=== PATIENT | male | born 1945 | race Caucasian/White ===

== ENCOUNTER 2016-04-26 05:25 | Inpatient (IN) | payer MEDICARE, BC ==
[2016-04-23 10:01] LABS: BASOPHILS 0.2 % (0.0-2.0); EOSINOPHILS 1.5 % (0-7); HEMATOCRIT 43.5 % (42.0-54.0); HEMOGLOBIN 14.8 g/dL (13.5-17.5); IMMATURE GRANULOCYTES 0.9 % (0-5); LYMPHOCYTES 24.4 % (15-50); MCV 96.9 fL (80.0-100.0); MEAN PLATELET VOLUME 9.4 fL (7.4-10.4); MONOCYTES 11.8 % (2-11); NEUTROPHILS 61.2 % (40-80); RBC 4.49 10x6/uL (4.20-6.10); RDW 13.6 % (11.5-14.5); WBC 4.7 10x3/uL (4.8-10.8)
[2016-04-23 10:16] LABS: PLATELET COUNT 168 10x3/uL (130-400)
[2016-04-23 10:40] LABS: APTT 30.8 SECONDS (22.8-39.4); INR 1.69 (0.85-1.17); PROTIME 19.8 SECONDS (11.6-15.0)
[~2016-04-26] VITALS: Ht 182.9 cm; Wt 94.1 kg
[2016-04-26] VITALS (13 sets, daily range): BP systolic 91–113; BP diastolic 53–67; BMI 30.1
[~2016-04-26 05:25] MED LIST: CALCIUM 250+D T1 TAB PO; CARTIA XT240 MG PO; CELLCEPT250 MG PO; COUMADIN5 MG PO; COUMADIN7.5 MG PO; HYDROCODON-ACE1 EAC7 PO; LISINOPRIL10 MG PO; MIRALAX17 GM PO; MULTIPLE VITAMI1 TA1 PO; NORCO 7.5/325 T1 TA1 PO; OMEPRAZOLE20 M1 PO
[2016-04-26 09:00] LABS: INR 1.08 (0.85-1.17); PROTIME 13.8 SECONDS (11.6-15.0)
--- NOTE | 2016-04-26 11:39 | NUR ---
1130: ATTEMPT TO REACH FAMILY EXT 2500, 2525. FAMILY IN WAITING ROOMS STATED THEY WERE NOT IN THE WAITING ROOM ANYMORE. WILL ATEMPTED TO REACH FAMILY AGAIN IN 30MIN.
--- NOTE | 2016-04-26 16:51 | NUR ---
SCOPE PATCH BEHIND RT EAR ON ADMIT
--- NOTE | 2016-04-26 17:10 | NUR ---
1710 PT RECIEVED FROM THE OR VIA BED .. ABDOMINAL DRESSING X3 CDI WITH PARVIN DRAIN COMPRESSED AND BLOODY DRAINAGE .. 45CC.. COLOSTOMY ON THE RIGHT STOMA IS PINK WITHOUT DRAINAGE IN OSTOMY BAG.. THERE IS A PIV IN THE RIGHT WRIST SALINE LOCKED AND A PIV IN THE LEFT FORWEARM WITH LR INFUSING AT 50CC ON ARRIVAL.. MCGEE [id number] PLACE WITH GREEN URINE IN TUBING AND SCANT AMT IN UROMETER,, SR ON HEART MONITOR.. RESP 16 ON1 LNC O2.. SAT IS 93%O2 INCREASED AT THIS TIME TO 2LNC.. NIBP... EASILY ROUSED TO VERBAL STIMULI THEN DOZES BACK TO SLEEP..
--- NOTE | 2016-04-26 17:54 | NUR ---
1750 FAMILY IN TO SEE PT AND INFO TAKEN FROM HER.. LATHE SCALPER OPERATOR MORPHINE SET UP IN PT INSTRUCTED ON USE..PT IS CONVERSING WITH FAMILY 1755 X RAY DONE PER ORDER..
--- NOTE | 2016-04-26 19:00 | NUR ---
REPORT RECIEVED, SHIFT ASSESSMENT COMPLETE, PT IS ALERT AND ORIENTED, ON 2L NC WITH 97% O2 SAT. LUNGS CLEAR IN B/L UPPER LOBES, DIMINISHED IN B/L LOWER LOBES, S1S2, CM-ST, PATENT LEFT FA PIV..SEE FLOW SHEET...PATENT RIGHT WRIST PIV S/L, DRSGS ABDOMINAL INCISIONS ARE CDI, PATENT PARVIN DRAIN TO LEFT ABDOMEN WITH BLOODY DRAINAGE NOTED, COLOSTOMY TO RIGHT ABDOMEN, BLOODY DRAINAGE NOTED, PATENT F/C WITH BLUE UOP, ALL PPP, VSS, CALL LIGHT IN REACH
--- NOTE | 2016-04-26 21:20 | NUR ---
NO VISITORS AT THIS TIME, PT RESTING COMFORTABLY, WILL CON'T TO MONITOR
--- NOTE | 2016-04-26 23:20 | NUR ---
REASSESSMENT COMPLETE, NO CHANGES NOTED, PT RESTING AT THIS TIME, VSS, CALL LIGHT IN REACH
[2016-04-27] VITALS (29 sets, daily range): BP systolic 80–128; BP diastolic 49–69; Ht 182.9 cm; Wt 94.1 kg
--- NOTE | 2016-04-27 00:47 | NUR ---
B/P DROPPED INTO THE 80'S, DR. MASSEY NOTIFIED, NEW ORDERS RECIEVED
--- NOTE | 2016-04-27 03:01 | NUR ---
REASSESSMENT COMPLETE, NO CHANGES NOTED, PT RESTING AT THIS TIME, WILL CON'T TO MONITOR
[2016-04-27 04:34] LABS: BASOPHILS 0 % (0.0-2.0); EOSINOPHILS 0 % (0-7); HEMATOCRIT 36.6 % (42.0-54.0); HEMOGLOBIN 12.2 g/dL (13.5-17.5); IMMATURE GRANULOCYTES 0.2 % (0-5); LYMPHOCYTES 8.3 % (15-50); MCH 32.2 pg (26.0-34.0); MCHC 33.3 g/dL (31.0-37.0); MCV 96.6 fL (80.0-100.0); MEAN PLATELET VOLUME 9.6 fL (7.4-10.4); MONOCYTES 9.4 % (2-11); NEUTROPHILS 82.1 % (40-80); PLATELET COUNT 146 10x3/uL (130-400); RBC 3.79 10x6/uL (4.20-6.10); RDW 13.4 % (11.5-14.5); WBC 8.1 10x3/uL (4.8-10.8)
[2016-04-27 04:48] LABS: ANION GAP 12.1 mmol/L (8-16); CALCIUM 8.1 mg/dL (8.5-10.1); CARBON DIOXIDE 23.8 mmol/L (21.0-32.0); CREATININE - SERUM 1.5 mg/dL (0.6-1.3); POTASSIUM - SERUM 4.9 mmol/L (3.5-5.1)
--- NOTE | 2016-04-27 05:00 | NUR ---
PT RESTING AT THIS TIME, NO NEEDS NOTED, WILL CON'T TO MONITOR
--- NOTE | 2016-04-27 07:17 | NUR ---
UPDATE CALLED TO DR. MASSEY, NEW ORDERS RECIEVED,
--- NOTE | 2016-04-27 08:03 | OP ---
PATIENT NAME: LE WOODARD JR MEDICAL RECORD: [id number] :45 LOCATION:[facility] D.[id number] ADMISSION DATE:04/26/16 SURGEON: ROCIO MASSEY MD DATE OF OPERATION: 04/26/2016 SURGEON: Rocio Massey MD PREOPERATIVE DIAGNOSES: 1. Rectal cancer. 2. Atrial fibrillation. POSTOPERATIVE DIAGNOSES: 1. Rectal cancer. 2. Atrial fibrillation. PROCEDURES PERFORMED: Laparoscopic lysis of adhesions, laparoscopic mobilization of splenic flexure, laparoscopic assisted low anterior resection, repair of left ureteral with ureteral stent placement. Diverting ileostomy. ANESTHESIA: General. COMPLICATIONS: Left ureteral injury. ESTIMATED BLOOD LOSS: 500 cc. SPECIMENS: Rectum and sigmoid colon. Case was clean contaminated. OPERATIVE COURSE: After consent was obtained, the patient was taken to the operating room and placed in supine position on the operating table. Next, general anesthesia was given via endotracheal intubation after a timeout was performed to confirm the correct patient and procedure. The abdomen was prepped and draped in typical sterile fashion. The legs were placed in stirrups. An Ioban dressing was placed. Local anesthetic was injected and right upper quadrant. A stab incision was made with 11-blade scalpel. Using a 5-mm bladeless optical trocar, the abdomen was entered under direct laparoscopic vision. Adequate pneumoperitoneum was achieved. There was a significant amount of adhesions of the omentum to the previous midline incision. The patient had previously had an exploratory laparotomy for adhesions. Prior lysis of adhesions, a second trocar was placed in the lower midline portion of the abdomen under direct laparoscopic vision as an additional 5-mm trocar was placed into abdomen and placed that was free of any abdominal adhesions. Trocars were placed in direct laparoscopic vision. Adhesiolysis was performed with the Harmonic scalpel along the midline. Once all midline abdominal adhesions were taken down, a supraumbilical 5-mm trocar was placed. The 5-mm trocar below the umbilicus was removed and GelPort was placed. Another 5-mm trocar was then placed in left lateral quadrant. At this time, laparoscopic mobilization of splenic flexure was performed using the Harmonic scalpel. Once the splenic flexure was completely mobilized, the remaining portion of the descending colon and sigmoid colon were dissected off the pelvic sidewall along the white line and cut, mobilize the colon medially using the Harmonic scalpel. Next, the colon was retracted anterior and laterally. The JERRELL was identified. It was dissected at the base with electrocautery. Once the bases of the vessels were identified, the GelPort was removed. The colon was extracorporealized. The OPERATIVE REPORT [id number] LE WOODARD JR vessels were taken with the linear cutting stapler. The mesentery was taken with the Harmonic scalpel up to the level of the colon. At this time, the sigmoid colon was transected using the linear cutting stapler. The remaining portion of the dissection continued, the avascular presacral plane was identified and dissected. The patient received previous chemotherapy and rectal radiation. The anterior and left lateral side of pelvis were significantly adherent. The patient received neoadjuvant preoperative radiation for positive enlarged nodes in the rectum. The peritoneal reflection was taken down. The bladder was identified. The Harrison balloon was identified. The peritoneal reflection was opened. The dissection continued from the peritoneal reflection around the right side of the colon posteriorly. This was done with a combination of blunt dissection and electrocautery. It was very difficult to dissect the plane along the left lower pelvis. The left ureter was identified during dissection, which was had a significant severe thermal injury without complete ligation. The ureter was marked. Remaining portion of the rectum was dissected. The contour stapler is passed. The elevators were identified. The rectum was taken approximately 2 cm above the elevators. The specimen was sent for surgical margins. The thermal injury was significant at this time. The ureter was ligated using Metzenbaum scissors. The ends were spatulated to create fresh, clean edges. A double-J stent was placed, retrograde and antegrade. The ureter was repaired over the double-J stent using a 4-0 Prolene suture. Methylene blue was injected. There was good return of urine. After approximately 10 minutes, there was no green urine noted within the pelvis. The injury occurred approximately within 4 cm of the urinary bladder. With the margins negative, it was decided to go ahead and perform a low anterior resection with EEA stapler. Rectal sizers were placed. A 29-mm EEA stapler was placed into the rectal stump. The staple line on the sigmoid colon was opened using sharp dissection. The 29-mm EEA anvil was placed using a 0 Prolene pursestring suture. The colotomy was closed. The anvil was attached to the spike and the end-to-end stapled EEA anastomosis was performed. There were 2 intact donuts that were sent for pathology. A PARVIN drain was placed into the pelvis. The Gelport port was placed back on to the abdomen. The abdominal cavity was inspected. There was no evidence of bleeding. The left upper quadrant, no evidence of bleeding along the left pelvic side wall. The cecum was identified, as well as the terminal ileum as the abdominal wall was marked. At this time, the Gelport port ____. Trocars were removed. A small incision was made in the right lower quadrant. Dissection continued to the level of the external oblique fascia with electrocautery. A cruciate incision was made. The muscles were gently split with the Melody clamp. The peritoneum was incised using electrocautery. A Shavonne was placed through the abdominal wall approximately 6 cm from the terminal ileum. The ileum was grabbed and the liver to the bowel. Next, the midline abdominal incision was closed with #1 looped PDS and skin was closed with wendy. A Radha ileostomy was created with 3-0 Vicryl suture. At the end of the case, all needle and instrument counts were correct. The patient was extubated and transferred to the PACU in stable condition. TRANSINT:[id number] Voice Confirmation ID: [id number] DOCUMENT ID: [id number] OPERATIVE REPORT [id number] LE WOODARD JR, JAMES J MD at 0803 CC: [id number] DICTATION DATE: 04/26/16 1607 RN PALLIATIVE CARE: 04/26/16 [address] [facility] [place] [id number] [place] [address]
--- NOTE | 2016-04-27 08:33 | NUR ---
Port access-20 gauge 1 inch campos needle placed in left chest wall iport. Good blood return. Flushed with saline 10 ml. Edith Bermeo RN
--- NOTE | 2016-04-27 10:45 | NUR ---
0800 AM ASSESMENT IS COMPLERTE SEE FLOW SHEET FOR FINDINGS.. PT IS AWAKE AND ALERT .. SURGICAL DRESSINGS ON ABDOMEN CDI WITH PARVIN DRAIN BLOODY DRAINAGE.. THERE IS A SMALL AMOUNT OF BROWN LIQUID IN THE COLOSTOMY BAG ON RIGHT LOWER ABDOMEN... MCGEE CATH REMAINS WITH GREEN URINE... COMMUNITY ORGANIZATION DIRECTOR MORPHINE AND D5 WITH 20KCL AT 125CC INFUSING INTO THE LEFT AC PIV.. 0815 AGUSTIN IN TO SEE PT RE INFUSAPORT IV SITE.. SITE ACCESSED BY HER.. 0815 CXR DONE.. CLEAR LIQUID DIET SERVED AND PT IS FEEDING SELF 0845 12 LEAD EKG DONE.. 0900 FAMILY IN TO SEE PT.. UPDATE GIVEN 0940 FAMILY GONE FROM BEDSIDE.. 1030PHYSICAL THERAPY IN TO ASSIST PT OOB TO THE CHAIR.. PT IS WEIGHT BEARING..
--- NOTE | 2016-04-27 14:03 | NUR ---
WOUND CARE: CHANGED OUT COLOSTOMY APPLIANCE D/T LEAKAGE. STOMA IS RED, SURROUNDING SKIN IS WNL. PT TOLERATED WELL.
--- NOTE | 2016-04-27 14:33 | NUR ---
1130 CLEAR LIQUID DIET SERVED PT REMAINSIN THE CHAIR AND PT IS FEEDING SELF.. 1145 DR HALEY IN TO SEE PT.. UPDATE GIVEN 1200 FAMILY IN TO SEE PT .. PT CONTINUES IN CHAIR.. COMMUNITY DEVELOPMENT AIDE IN TO DO ECHO.. 1220 ASSISTED BACK TO BED WITH NURSE .. PARTIAL BATH GIVEN.. CLEAN GOWN ON.. CLEAN LINENS TO BED EARLIER.. REMAINS IN THE ROOM 1230 FAMILY GONE AND ECHO DONE .. 1330 DR MASSEY IN TO SEE PT .. 1345 WOUND CARE NURSE IN UNIT AND OSTOMY BAG CHANGED .. DRESSING ON SURGICAL INCISION CHANGED AND LAP SITES X 2 ALL AREAS ARE WITHOUT REDNESS OR SWELLING AND EDGES ARE APPROXIMATED WITH SKIN CECIL.. PARVIN DRAIN DRESING CHANGED ALSO SITE IS WITHOUT REDNESS.. BLOODY DRAINAGE IN PARVIN BULB DEPRESSED..
--- NOTE | 2016-04-27 14:34 | NUR ---
Is the patient Alert and Oriented? Yes 0 * How many steps to enter\exit or inside your home? 4 0 * PCP DR. CHANDRA IN [place] 0 * Pharmacy [facility] IN [place] 0 * Preadmission Environment Home with Family 0 * ADLs Independent 0 * Equipment None 0 * List name and contact numbers for known caregivers / representatives who currently or will assist patient after discharge: SPOUSE: FERDINAND [phone] * Community resources currently utilized None 0 * Additional services required to return to the preadmission environment? No 0 * Can the patient safely return to the preadmission environment? Yes 0 * Has this patient been hospitalized within the prior 30 days at any hospital? No 0 Grand Total: 0 PATIENT STATES HE LIVES AT HOME WITH HIS , JUAN. HE IS INDEPENDENT IN ALL ADL'S. HE STATES THAT HIS WILL BE AVAILABLE TO DRIVE HIM HOME AT DISCHARGE. HIS PCP IS DR. CHANDRA IN [place]. HE GETS HIS MEDS FROM [facility] IN [place]. HE DENIES USE OF ANY EQUIPMENT AND DENIES EVER HAVING HOME HEALTH. THERE ARE 4 STEPS TO ENTER HIS HOME. PATIENT DENIES ANY DISCHARGE NEEDS AT THIS TIME.
--- NOTE | 2016-04-27 17:39 | NUR ---
1500 FAMILY IN TO SEE PT.. UPDATE GIVEN.. 1600 PT IS SLEEPING 1700 I AND O DONE.. CLEAR LIQUID DIET IS EATEN
--- NOTE | 2016-04-27 18:18 | NUR ---
1800 VISITORS ATY THE BEDSIDE..
--- NOTE | 2016-04-27 19:37 | NUR ---
REPORT RECIEVED. ASSESSMENT COMPLETE PER FLOW SHEET. VSS. PT STATES PAIN TOLERABLE 4/10 RADIATING FROM ABD. O2 VIA NC 2L O2 SAT 97% RR 16 REGULAR RUL RML KATERYNA CLEAR BILAT LOWER LOBES DEMINISHED. HEART S1S2 HR 99 NSR BP 125/76. ABD DISTENDED FIRM BS ABSENT X4 MID ABD INCISION NOTED CDI, LLQ PARVIN DRAIN PATENT COMPRESSED DRSG CDI BLOODY DRAINAGE NOTED. RLQ COLOSTOMY NOTED DRSG CDI GREEN DRAINGE NOTED. BILAT RADIAL AND PEDAL PULSES PALP +2 NO EDEMA NOTED X4 EXTREMTIES. SCD'S ON SKIN ASSESSMENT COMPLETE NO NEW FINDINGS. GIVEN ICE WATER FOR COMOFRT. DENIES NEEDS. WILL CNOTINUE TO MONITOR.
--- NOTE | 2016-04-27 21:14 | NUR ---
PT GIVEN ICE WATER PER REQUEST REPOSITIONED IN BED FOR COMOFRT. DENIES FURTHER NEEDS. LIGHTS OUT VSS WILL CONTINUE TO MONITOR.
--- NOTE | 2016-04-27 23:26 | NUR ---
PT CONFUSED TO PLACE UPON WAKING UP. REORIENTED STATES UNDERSTANDING. NO FURTHER NEW FINDINGS. VSS. WILL COTINUE TO MONITOR.
[2016-04-28] VITALS (24 sets, daily range): BP systolic 102–156; BP diastolic 49–81
--- NOTE | 2016-04-28 01:24 | NUR ---
REPOSITIONED UP IN BED. VSS. DENIES FURTHER NEEDS. WILL CONTINUE TO MONITOR.
[2016-04-28 04:54] LABS: BASOPHILS 0.1 % (0.0-2.0); IMMATURE GRANULOCYTES 0.3 % (0-5); MCH 32.2 pg (26.0-34.0); MCHC 32.4 g/dL (31.0-37.0); MEAN PLATELET VOLUME 10.1 fL (7.4-10.4); MONOCYTES 10.5 % (2-11); NEUTROPHILS 79.1 % (40-80); PLATELET COUNT 126 10x3/uL (130-400); RBC 3.42 10x6/uL (4.20-6.10); RDW 13.4 % (11.5-14.5); WBC 6.8 10x3/uL (4.8-10.8)
[2016-04-28 05:32] LABS: ANION GAP 10.3 mmol/L (8-16); CALCIUM 8.6 mg/dL (8.5-10.1); CARBON DIOXIDE 28.3 mmol/L (21.0-32.0); MAGNESIUM - SERUM 1.7 mg/dL (1.8-2.4); POTASSIUM - SERUM 4.6 mmol/L (3.5-5.1)
[2016-04-28 05:49] LABS: MCV 99.4 fL (80.0-100.0)
[2016-04-28 05:53] LABS: CREATININE - SERUM 1.1 mg/dL (0.6-1.3)
--- NOTE | 2016-04-28 07:30 | NUR ---
SHIFT ASSESSMENT COMPLETE. PT AWAKE AND CONVERSANT. SEE FLOWSHEET FOR FINDINGS. PT IS ON 2L O2, SCD'S ON. PIV TO LEFT FOREARM, PIV TO RIGHT HAND. INFUSAPORT AT LEFT CHEST IS ACCESSED, BUT NOT IN USE.
--- NOTE | 2016-04-28 09:33 | NUR ---
Nutrition follow-up: Diet remains clear liquids Labs reviewed Wt: 227# Will need nutrition support started if diet unable to advance past clear liquids. RDN following.
--- NOTE | 2016-04-28 10:30 | NUR ---
30ML OF BLOODY DRAINAGE EMPTIED FROM PARVIN DRAIN.
--- NOTE | 2016-04-28 11:30 | NUR ---
PT SITTING UP IN CHAIR AT BEDSIDE WITH LUNCH TRAY. DENIES NEEDS AT THIS TIME. CALL LIGHT IN REACH. HAS WALKED WITH PHYSICAL THERAPY PRIOR TO BEING PLACED IN CHAIR.
--- NOTE | 2016-04-28 13:16 | EC ---
PATIENT:LE WOODARD JR DATE OF SERVICE: 04/26/16 SEX: M MEDICAL RECORD: [id number] DATE OF : 45 LOCATION:[facility] AGE OF PATIENT: 70 ADMISSION DATE: 04/26/16 REFERRING PHYSICIAN: INTERPRETING PHYSICIAN: ONEL SILVER M.D. ECHOCARDIOGRAM REPORT ECHO CHARGES 4 ECHO COMPLETE CLINICAL DIAGNOSIS: HYPOTENSION HX AFIB ECHOCARDIOGRAPHIC MEASUREMENTS (adult normal given) AC root (d.<3.7cm) 4.7 LV Septum d (<1.2 cm> 1.2 Valve Excursion 2.4 LV Septum (systole) 1.7 Left Atria (s.<4.0cm> 3.7 LVPW d(<1.2cm) 1.5 RV (d.<2.3cm) 4.0 LVPW (sytole) 1.8 LV diastole(<5.6CM) 5.4 MV E-F(>70mm/sec) LV systole 3.4 LVOT Diameter 2.2 MV exc.(>10mm) 1.6 Est.ejection fraction (50-75%) Pericardial Effusion N DOPPLER: LVIT A 50.0 E 75.0 LA RVSP 20 LVOT 116 AOP1/2T Asc. Ao 138 RVOT 103 RA PA 136 AV Gradient Peak 7.60 AV Mean 3.68 AV Area 3.5 MV Gradient Peak 3.29 MV Mean 1.16 MV Area COMMENTS: Wallpaper Hanger: Trina [place] Switchboard Operator:Trina Silver TAPE# PACS DATE OF SERVICE: 04/27/2016 INDICATION: Hypotension. REFERRING PHYSICIAN: Dr. Oconnell. DESCRIPTION: Left ventricle is normal size and function. No regional wall motion abnormalities are seen. His ejection fraction is in the order of 55% to 60%. Mitral valve is structurally normal. There is no regurgitation or prolapse seen. Left atrium is normal in size. The aortic valve appears ECHOCARDIOGRAM REPORT [id number] LE WOODARD JR trileaflet. There is no stenosis or regurgitation seen. Right ventricle is mildly dilated. Tricuspid valve is normal. There is mild regurgitation seen. Right atrium is normal size. There is no pericardial effusion noted. IMPRESSION: 1. Normal left ventricular size and function, ejection fraction of 55% to 60%. 2. Mild tricuspid regurgitation. TRANSINT:[id number] Voice Confirmation ID: [id number] DOCUMENT ID: [id number] ONEL SILVER M.D. at 1316 CC: [id number] DICTATION DATE: 04/28/16816 WEB SIZER: 04/28/16 0945 ADM IN [facility] [address] [place] [address]
--- NOTE | 2016-04-28 17:00 | NUR ---
PT SITTING UP IN BED EATING REGULAR DINNER TRAY. DENIES ANY OTHER NEEDS AT THIS TIME.
--- NOTE | 2016-04-28 19:00 | NUR ---
RECEIVED PATIENT AWAKE IN BED, ASSESSMENT COMPLETE PER FLOWSHEET. PATIENT IS AO X4, DEMEANOR IS PLEASANT. EYES PERRLA @ 3MM WITH BRISK RESPONSE, SCLERA IS WHITE. ORAL/NASAL MUCOSA IS MOIST AND INTACT, PATIENT CURRENTLY ON RA WITH O2 SAT 98%. S1/S2 NOTED WITH PATIENT NSR ON TELEMETRY, RATE IS RYTHMIC AND REGULAR. BREATHING IS EVEN AND EFFORTLESS, LUNG SOUNDS ARE CLEAR BILATERAL UPPER WITH DIMINISHED LOWER. BOWEL SOUNDS HYPOACTIVE X4, ABDOMEN IS SOFT AND NON-TENDER. 3 LAPAROSCOPIC SITES COVERED BY DRESSING CDI, L UPPER ABDOMEN PARVIN DRAIN DRESSING CDI WITH BLOODY FLUIDS, ABDOMINAL INCISION MIDLINE 13 CECIL WITH WELL APPROXIMATED EDGES, R LOWER OSTOMY WITH PINK GRANULATED TISSUE. MCGEE SECURED IN PLACE WITH CLEAR GREEN TINTED URINE NOTED IN COLLECTION. UROLOGIST/PEDAL STRENGTH EQUAL AND BILATERAL, WEAKNESS NOTED IN ALL EXTREMITIES. IMPLANTED PORT L UPPER CHEST, NOT CURRENTLY ACCESSED. 20G PIV R HAND, PATENT WITH FLUIDS INFUSING. PATIENT DENIES PAIN OR OTHER NEEDS AT THIS TIME, ALL VSS AND WILL CONTINUE TO MONITOR.
--- NOTE | 2016-04-28 21:00 | NUR ---
PATIENT FAMILY AT BEDSIDE FOR VISITATION, FAMILY HAS NO QUESTIONS AT THIS TIME. PATIENT DENIES PAIN OR OTHER NEEDS AT THIS TIME, C/O BURNING DISCOMFORT FROM "ACID REFLUX" FROM LUNCH TRAY. REPOSITIONED FOR COMFORT, HS MEDS GIVEN WITHOUT DIFFICULTY. ALL VSS AND WILL CONTINUE TO MONITOR.
--- NOTE | 2016-04-28 23:00 | NUR ---
REASSESSMENT COMPLETE PER FLOWSHEET, PATIENT RESTING IN BED WITH EYES CLOSED. PATIENT AWOKE C/O "ACID REFLUX" PAIN CAUSING NAUSEA, GIVEN PRN ZOFRAN FOR NAUSEA. ABDOMINAL DRESSING CDI, NO DRAINAGE OR SWELLING NOTED. PATIENT DENIES PAIN OR OTHER NEEDS AT THIS TIME, ALL VSS AND WILL CONTINUE TO MONITOR.
[2016-04-29] VITALS (13 sets, daily range): BP systolic 74–155; BP diastolic 58–83
--- NOTE | 2016-04-29 00:49 | NUR ---
PATIENT SITTING UP ON EDGE OF BED, STATES FEELING "SICK TO MY STOMACH". NO DRAINAGE NOTED IN ANY OF THE INCISION SITES, ABDOMEN SOFT AND ROUND. PATIENT MOVED TO CHAIR WANTS "TO SIT UP FOR A WHILE", STATES NO ACID REFLUX FEELING JUST NAUSEA. PATIENT DENIES FURTHER NEEDS AT THIS TIME, ALL VSS AND WILL CONTINUE TO MONITOR.
[2016-04-29 03:25] LABS: BASOPHILS 0.1 % (0.0-2.0); HEMATOCRIT 36.7 % (42.0-54.0); IMMATURE GRANULOCYTES 0.4 % (0-5); LYMPHOCYTES 6.8 % (15-50); MCH 32.3 pg (26.0-34.0); MCHC 32.7 g/dL (31.0-37.0); MCV 98.9 fL (80.0-100.0); MEAN PLATELET VOLUME 10.3 fL (7.4-10.4); MONOCYTES 8.8 % (2-11); NEUTROPHILS 82.9 % (40-80); RBC 3.71 10x6/uL (4.20-6.10); RDW 12.9 % (11.5-14.5)
[2016-04-29 03:26] LABS: PLATELET COUNT 174 10x3/uL (130-400)
[2016-04-29 03:34] LABS: ANION GAP 12.7 mmol/L (8-16); CALCIUM 9.1 mg/dL (8.5-10.1); CARBON DIOXIDE 26.4 mmol/L (21.0-32.0); CREATININE - SERUM 1.2 mg/dL (0.6-1.3); MAGNESIUM - SERUM 1.6 mg/dL (1.8-2.4); POTASSIUM - SERUM 4.1 mmol/L (3.5-5.1)
--- NOTE | 2016-04-29 05:20 | NUR ---
PATIENT VOMITED A LARGE AMOUNT OF GREEN/YELLOW EMESIS, UNABLE TO CALCULATE APPROXIMATE VOLUME. MOVED TO CHAIR WITH COMPLETE BED BATH/ LINEN CHANGE PERFORMED. PATIENT STATES "FEELING BETTER NOW", NO FEELING OF NAUSEA. ALL VSS AND WILL CONTINUE TO MONITOR.
--- NOTE | 2016-04-29 08:30 | NUR ---
300ML OF CLEAR FAINT GREEN LIQUID EMPTIED FROM COLOSTOMY. 70 ML OF THIN, BLOODY DRAINAGE EMPTIED FROM PARVIN DRAIN. BULB COMPRESSED.
--- NOTE | 2016-04-29 13:27 | NUR ---
PATIENT RECEIVED TO FLOOR FROM ICU VIA WHEELCHAIR. TRANSFERRED TO BED. WELL TOLERATED. A/O X4. RESPIRATIONS EVEN AND UNLABORED. ORIENTED TO ROOM. SIDE RAILS UP X2. BED IN LOW POSITION. CALL LIGHT IN REACH.
--- NOTE | 2016-04-29 14:45 | NUR ---
PATIENT IN LOW SORENSEN POSITION RESTING WITH EYES CLOSED. RESPIRATIONS EVEN AND UNLABORED. WAKES EASY. SIDE RAILS UP X2. BED IN LOW POSITION. CALL LIGHT IN REACH.
--- NOTE | 2016-04-29 16:05 | NUR ---
PATIENT ALERT IN BED VISITING WITH FAMILY. IV ABX ADMINISTERED PER ORDER. SCDS ON BILATERALLY. DENIES NEEDS. BED IN LOW POSITION. CALL LIGHT IN REACH.
--- NOTE | 2016-04-29 19:15 | NUR ---
PATIENT LYING IN BED AWAKE, ASSESSMENT COMPLETED, NO ACUTE DISTRESS NOTED, DSG'S TO LAP SITES X2 AND L QUAD PARVIN DRAIN CDI, CECIL(13) TO MIDLINE INCISION INTACT, NO DRAINAGE NOTED, COLOSTOMY WAFER AND BAG INTACT, MCGEE DRAINGING CLEAR, GREEN URINE TO GRAVITY, SCOPALAMINE PATCH IN PLACE MONIQUE R EAR, SR'S UP X2, CL IN REACH, WILL MONITOR
--- NOTE | 2016-04-29 19:24 | NUR ---
PRN ZOFRAN GIVEN FOR C/O NAUSEA WITHOUT EMESIS, JACOBY WELL, WILL MONITOR, CL IN REACH
--- NOTE | 2016-04-29 20:43 | NUR ---
MEDS GIVEN PER MAR, JACOBY WELL, DENIES NEEDS AT THIS TIME, CL IN REACH
--- NOTE | 2016-04-29 22:49 | NUR ---
PRN TUMS GIVEN PER MAR FOR C/O ABD BLOATING AND PRESSURE, JACOBY WELL, FAMILY AT BEDSIDE, CL IN REACH
[2016-04-30] VITALS: BP 112/70
--- NOTE | 2016-04-30 01:52 | NUR ---
ZOFRAN GIVEN PER MAR FOR NAUSEA WITH GREEN EMESIS, SPOUSE AT BEDSIDE, CL IN REACH
[2016-04-30 04:00] VITALS: BP 112/68
[2016-04-30 05:12] LABS: BASOPHILS 0.1 % (0.0-2.0); EOSINOPHILS 1.7 % (0-7); HEMATOCRIT 35.8 % (42.0-54.0); HEMOGLOBIN 11.8 g/dL (13.5-17.5); IMMATURE GRANULOCYTES 0.4 % (0-5); LYMPHOCYTES 9.2 % (15-50); MCH 32.6 pg (26.0-34.0); MCV 98.9 fL (80.0-100.0); MEAN PLATELET VOLUME 10.4 fL (7.4-10.4); MONOCYTES 10.5 % (2-11); NEUTROPHILS 78.1 % (40-80); PLATELET COUNT 205 10x3/uL (130-400); RBC 3.62 10x6/uL (4.20-6.10); WBC 7.3 10x3/uL (4.8-10.8)
[2016-04-30 05:25] LABS: ANION GAP 11.3 mmol/L (8-16); CALCIUM 8.9 mg/dL (8.5-10.1); CARBON DIOXIDE 28.9 mmol/L (21.0-32.0); CREATININE - SERUM 1.2 mg/dL (0.6-1.3); MAGNESIUM - SERUM 1.8 mg/dL (1.8-2.4); POTASSIUM - SERUM 4.2 mmol/L (3.5-5.1)
--- NOTE | 2016-04-30 06:04 | NUR ---
MAGNESIUM GIVEN PER E. PROTOCOL FOR LEVEL OF 1.8, JACOBY WELL
--- NOTE | 2016-04-30 07:48 | NUR ---
PT RESTING QUIETLY IN BED, MCGEE PATENT TO GRAVITY, ILEOSTOMY BAG IN PLACE, PARVIN DRAIN SEROUS SANGUINOUS, MIDLINE INSISION OPEN TO AIR CECIL INTACK NO SIGNS OF INFECTION PRESENT, RESPIRATIONS EVEN AND UNLABORED, SIDE RAILS UP X2, BED LOWEST POSITION, CALL LIGHT IN REACH, AT BEDSIDE, WILL CONTINUE TO MONITOR.
[2016-04-30 08:03] VITALS: BP 126/69
--- NOTE | 2016-04-30 08:30 | NUR ---
SCHEDULED PROTONIX ADMINSITERED AT THIS TIME, WELL PRN ZOFRAN FOR NAUSEA. IV TO RIGHT HAND PATENT. EXPLAINED TO PT AND HIS SPOUSE THAT HE WOULD BE GETTING AN NG TUBE PLACED SECONDARY TO AN ILEUS SEEN ON HIS ABDOMINAL X-RAY. PT IS FAMILIAR WITH NG TUBES HE HAS HAD ONE IN THE PAST. DENIES QUESTIONS OR CONCERNS AND BOTH HE AND HIS VERBALIZED UNDERSTANDING. NO VOMITING AT PRESENT JUST C/O NAUSEA. RESPIRATIONS EVEN AND NON LABORED. CALL LIGHT IN REACH, WILL CONTINUE WITH PLAN OF CARE.
--- NOTE | 2016-04-30 10:25 | NUR ---
16FR NG TUBE PLACED TO PT'S RIGHT NARE X1 ATTEMPT. PT TOLERATED WITHOUT COMPLAINTS. PLACEMENT CHECKED BY ASCULTATION AND IMMEDIATE RETURN OF THICK, GREEN OUTPUT. NG TUBE SECURED. PT C/O OF SORE THROAT AND NAUSEA. PT IS DRY HEAVING. WILL ADMINISTER PRESCRIBED REGLAN AND PHENERGAN. AT BEDSIDE. WILL CONTINUE WITH PLAN OF CARE.
[2016-04-30 11:11] VITALS: BP 130/69
--- NOTE | 2016-04-30 12:00 | NUR ---
NUTRITION MONITORING & EVAL CHART REVIEWED. PT CURRENTLY NPO. WILL PROVIDE DIET WHEN ADVANCED, MONITOR PO INTAKE. RD FOLLOWING
--- NOTE | 2016-04-30 12:13 | NUR ---
PT COMPLAINS OF SINUS DRAINAGE SINCE NG TUBE PLACED, SOME COMPLAINTS OF DISCOMFORT FROM TUBE, NO OTHER COMPLAINTS, PARVIN DRAINING SEROUS, ILEOSTOMY IN PLACE, WILL CONTINUE TO MONITOR
--- NOTE | 2016-04-30 12:39 | CN ---
PATIENT NAME:LE WOODARD JR MEDICAL RECORD: [id number] : 45 LOCATION:[id number] ADMIT DATE: 04/26/16 ACCOUNT: [id number] CONSULTING PHYSICIAN: EMMY HALEY MD REFERRING PHYSICIAN: ROCIO MASSEY MD DATE OF CONSULTATION: 04/27/2016 Pulmonary Consultation CONSULT REQUESTING PHYSICIAN: ROCIO MASSEY MD (JJ). REASON FOR CONSULTATION: Hypotension, critical care management. HISTORY OF PRESENT ILLNESS: Mr. Woodard is a 70-year-old gentleman who underwent yesterday laparoscopic surgery as well as diverting ileostomy and repair of the left ureteral stent placement. The patient was recently diagnosed with rectal carcinoma. He got adjuvant chemotherapy and radiation therapy. He still have a rectal bleeding and from which he has diversion ileostomy was done. Now, the patient is awake and alert. He does not have any lightheadedness. No shortness of breath. His systolic blood pressure is still running at 90, but the patient is asymptomatic. REVIEW OF SYSTEMS: Mainly in the history of present illness. PAST MEDICAL HISTORY: 1. Hypertension. 2. History of atrial fibrillation status post ablation surgery. 3. History of cerebrovascular accident. 4. CA rectum. PAST SURGICAL HISTORY: 1. He had a biopsy of the rectal carcinoma. 2. He is status post ablation surgery. 3. He has an exploratory surgery for adhesion. ALLERGIES: HE IS ALLERGIC TO ASPIRIN. PRESENT MEDICATIONS: On [employer] was reviewed. PERSONAL AND SOCIAL HISTORY: The patient is . He lives with his . He is a nonsmoker, nondrinker. FAMILY HISTORY: Noncontributory. PHYSICAL EXAMINATION: GENERAL: Now, the patient is lying comfortably. He is not in acute distress. VITAL SIGNS: The blood pressure is 82-90/54, pulse is 113, respiration is 23, temperature is 98.2, and SpO2 is 96% on 2 liters nasal cannula. HEENT: Conjunctivae are pink. Sclerae nonicteric. NECK: Supple, no JVD. CHEST: Excursion is minimal on both sides. There is no wheezing, no rales. HEART: Rhythm regular, normal sound, no murmur. ABDOMEN: Soft. Tender on deep palpation. Bowel sounds are muffled. RECTAL: Deferred. EXTREMITIES: No cyanosis, no clubbing, no pedal edema. CONSULT REPORT [id number] LE WOODARD JR SKIN: Warm, normal turgor. CENTRAL NERVOUS SYSTEM: The patient is awake and alert. There are no obvious cranial nerve abnormality. The gait was not tested. CHEST RADIOGRAPH: There is a left basilar atelectasis. OTHER LABORATORY DATA: CBC: The WBC is 4.7, hemoglobin is 14.8, hematocrit is 43.5. The repeat CBC: The WBC is 8.1, hemoglobin is 12.2, hematocrit 36.6. Chemistry: Sodium 134, potassium is 4.9, BUN is 19, creatinine 1.5. IMPRESSION: 1. Hypotension post-procedure. 2. Atelectasis in the left lower lobe, possible aspiration pneumonia. 3. Anemia, most likely secondary to blood loss. 4. Cancer rectum. 5. Status post diverting ileostomy and laparoscopic adhesiolysis. 6. Status post ureteric stent placement. 7. Atrial fibrillation, status post ablation. RECOMMENDATION: 1. We will continue the incentive spirometry and Acapella. 2. DVT and stress ulcer prevention. 3. Follow up labs and chest radiograph in the morning. 4. We will continue Mefoxin possible aspiration pneumonia. Dr. Massey once again thanks for involving me in the care of Mr. Woodard. TRANSINT:[id number] Voice Confirmation ID: [id number] DOCUMENT ID: [id number] EMMY HALEY MD at 1239 CC: ROCIO MASSEY MD [id number] DICTATION DATE: 04/27/16 1226 QC CHEMIST: 04/27/16 1316 [place] [address]
--- NOTE | 2016-04-30 12:49 | NUR ---
ORDERED MUCINEX ADMINISTERED AT THIS TIME. NG TUBE CLAMPED, WILL RESUME SUCTION IN 30 MINUTES.
--- NOTE | 2016-04-30 13:15 | NUR ---
INTERMITTENT SUCTION RE-INITIATED AT THIS TIME. PT DENIES FURTHER NEEDS. CALL LIGHT IN REACH. WILL CONTINUE WITH PLAN OF CARE.
--- NOTE | 2016-04-30 13:55 | NUR ---
NG TUBE CLAMPED SO THAT PT CAN AMBULATE WITH PHYSICAL THERAPY AT THIS TIME.
--- NOTE | 2016-04-30 15:50 | NUR ---
ILEOSTOMY EMPTIED AT THIS TIME. 125ML OF PALE, GREEN LIQUID REMOVED FROM BAG. 400ML OF DARK GREEN/BROWN LIQUID IN NG TUBE CANISTER. MCGEE CATHETER CARE PROVIDED WITH CATHETER CARE WIPES. REMAINS AT BEDSIDE. DR MASSEY ASSESSING PT. CALL LIGHT IN REACH, DENIES FURTHER NEEDS. WILL CONTINUE WITH PLAN OF CARE.
[2016-04-30 15:57] VITALS: BP 112/61
--- NOTE | 2016-04-30 19:45 | NUR ---
ASSESSMENT COMPLETED, NO ACUTE DISTRESS NOTED, NG TUBE IN PLACE IN RIGHT NARE, MCGEE DRAINING TO GRAVITY, COLOSTOMY BAG AND WAFER INTACT, STOMA RED AND BEEFY, DENIES PAIN OR NEEDS, SR'S UP X2, CL IN REACH, IN ROOM, WILL MONITOR
[2016-04-30 20:00] VITALS: BP 131/71
--- NOTE | 2016-04-30 21:50 | NUR ---
MEDS GIVEN PER MAR, JACOBY WELL, DENIES FURTHER NEEDS, AT BEDSIDE, CL IN REACH
--- NOTE | 2016-04-30 23:42 | NUR ---
RESTING WITH EYES CLOSED, NO ACUTE DISTRESS NOTED, CL IN REACH
[2016-05-01 04:00] VITALS: BP 129/77
[2016-05-01 06:14] LABS: BASOPHILS 0.2 % (0.0-2.0); EOSINOPHILS 4.4 % (0-7); HEMATOCRIT 33.9 % (42.0-54.0); IMMATURE GRANULOCYTES 0.7 % (0-5); LYMPHOCYTES 10.9 % (15-50); MCH 32.2 pg (26.0-34.0); MCHC 32.4 g/dL (31.0-37.0); MCV 99.1 fL (80.0-100.0); MEAN PLATELET VOLUME 9.9 fL (7.4-10.4); MONOCYTES 10.9 % (2-11); NEUTROPHILS 72.9 % (40-80); PLATELET COUNT 187 10x3/uL (130-400); RBC 3.42 10x6/uL (4.20-6.10); WBC 5.5 10x3/uL (4.8-10.8)
[2016-05-01 06:26] LABS: ANION GAP 12.1 mmol/L (8-16); CALCIUM 8.9 mg/dL (8.5-10.1); CARBON DIOXIDE 29.9 mmol/L (21.0-32.0); CREATININE - SERUM 1.1 mg/dL (0.6-1.3); MAGNESIUM - SERUM 1.9 mg/dL (1.8-2.4)
--- NOTE | 2016-05-01 07:35 | NUR ---
RECIEVED PATIENT DURING WALKING ROUNDS. PATIENT LYING IN BED WITH EVEN RESPIRATIONS. NO SINGS OF DISTRESS NOTED. OSTOMY DRAIN 200 CLEAR GREEN LIQUID. ASSESSMENT DONE PER FOW SHEET. BED IN LOW POSITION AND CALL LIGHT WITHIN REACH. WILL CONTINUE TO MONITOR.
--- NOTE | 2016-05-01 07:45 | NUR ---
PATIENT IS AWAKE, ALERT AND ORIENTED X'S 4. RESPIRATIONS ARE EVEN AND UNLABORED. PATIENT HAS AN NGT HOOKED TO LIWS. DARK GREEN GASTRIC CONTENT IN CANNESTER. AT BEDSIDE, REQUESTED ICE CHIPS. BROUGHT PATIENT ICE CHIPS. PATIENT AND DENY FURTHER NEEDS AT THIS TIME. BED IN LOWEST POSITON, CALL LIGHT IN REACH. BED RAILS UP X'S 2, HOB 30 DEGREES.
[2016-05-01 08:16] VITALS: BP 118/67
--- NOTE | 2016-05-01 10:50 | NUR ---
NGT BACK TO LIS SUCTION AFTER GETTING MORNING MEDICATIONS; MCGEE CATHETER REMOVED; TOLERATED WELL. 500CC DARK GREEN URINE REMOVED. INSTRUCTED PT TO USE URINAL AND TO CALL AFTER VOIDING. WILL CONTINUE TO MONITOR.
[2016-05-01 12:20] VITALS: BP 119/77
[2016-05-01 12:42] LABS: PHOSPHOROUS 3.8 mg/dL (2.5-4.9)
--- NOTE | 2016-05-01 12:59 | NUR ---
NUTRITION MONITORING & EVAL LABS ORDERED, REVIEWED. TPN ORDERS WRITTEN. 20% INTRALIPIDS Q 48 HOURS. DISCUSSED WITH NURSING RE:DECREASE LACTATED RINGERS WHEN TPN STARTS. RD FOLLOWING
--- NOTE | 2016-05-01 13:16 | NUR ---
AWAITING PHARMACY TO BRING IV FLUIDS
[2016-05-01 15:49] VITALS: BP 115/76
--- NOTE | 2016-05-01 18:54 | NUR ---
MCGEE CATHETER REMOVED AT 1050; NO OUTPUT SINCE. NO OTHER CHANGES HAVE OCCURED SINCE INITAL SHIFT ASSESSMENT. WILL CONTINUE TO MONITOR.
--- NOTE | 2016-05-01 19:20 | NUR ---
RECIEVED PT LYING IN BED AWAKE, ASSESMENT COMPLETED, NG TUBE TO LIT SUCTION, COLOSTOMY BAG AND WAFER INTACT, FLUIDS INFUSING, REPORT RECIEVED THAT PT HAS NOT VOIDED SINCE MCGEE REMOVAL THIS AM, PT DENIES DISCOMFORT AT THIS TIME, DAY SHIFT NURSE CHIDI AGREED TO INFORM DR MASSEY, AT BEDSIDE, SAFETY MEASURES IN PLACE, CL IN REACH, WILL MONITOR
--- NOTE | 2016-05-01 19:43 | NUR ---
SPOKE WITH ABOUT NOT VOIDING SINCE MCGEE OUT; INSTRUCTED TO GIVE FLOMAX AND BLADDER SCAN; BLADDER SCAN SHOWED 421. INSTRUCTED TO CONTINUE TO WATCH AND RESCAN IN AN HOUR OR TWO; IF ABOVE 600 IN AND OUT CATH CAN BE DONE.
--- NOTE | 2016-05-01 19:49 | NUR ---
PRN FLOMAX GIVEN VIA NG PER ORDERS, WILL MONITOR, IN ROOM, CL IN REACH
[2016-05-01 20:00] VITALS: BP 157/73
--- NOTE | 2016-05-01 21:40 | NUR ---
PT HAS NOT VOIDED,C/O "PRESSURE" IN BLADDER, BLADDER SCAN DONE SHOWING 680CC, IN AND OUT CATH PERFORMED PER ORDERS RESULTING IN 620 CC DARK YELLOW URINE, PT JACOBY WELL, WILL CONTINUE TO MONITOR
--- NOTE | 2016-05-01 22:16 | NUR ---
MEDS PER MAR, JACOBY WELL, CL IN REACH
--- NOTE | 2016-05-01 23:32 | NUR ---
RESTING WITH EYES CLOSED, NO DISTRESS NOTED, AT BEDSIDE, FALL PRECAUTIONS IN PLACE, CL IN REACH
[2016-05-02] VITALS: BP 137/77
[2016-05-02 04:00] VITALS: BP 124/71
[2016-05-02 05:43] LABS: BASOPHILS 0.1 % (0.0-2.0); EOSINOPHILS 3.4 % (0-7); HEMATOCRIT 35.7 % (42.0-54.0); HEMOGLOBIN 11.8 g/dL (13.5-17.5); LYMPHOCYTES 9.4 % (15-50); MCH 32.4 pg (26.0-34.0); MCHC 33.1 g/dL (31.0-37.0); MCV 98.1 fL (80.0-100.0); MEAN PLATELET VOLUME 9.6 fL (7.4-10.4); NEUTROPHILS 76.1 % (40-80); PLATELET COUNT 224 10x3/uL (130-400); RBC 3.64 10x6/uL (4.20-6.10); RDW 12.9 % (11.5-14.5); WBC 6.7 10x3/uL (4.8-10.8)
[2016-05-02 06:02] LABS: ANION GAP 15.2 mmol/L (8-16); CALCIUM 9.2 mg/dL (8.5-10.1); CARBON DIOXIDE 25.9 mmol/L (21.0-32.0); CREATININE - SERUM 1.1 mg/dL (0.6-1.3); MAGNESIUM - SERUM 1.9 mg/dL (1.8-2.4); PHOSPHOROUS 3.9 mg/dL (2.5-4.9); POTASSIUM - SERUM 4.1 mmol/L (3.5-5.1)
--- NOTE | 2016-05-02 06:15 | NUR ---
PT UNABLE TO VOID, NO URINE OUTPUT SINCE IN/OUT CATH PERFORMED LAST NIGHT, BLADDER SCAN PERFORM SHOWING 303 CC, PT DENIES ANY DISCOMFORT AT THIS TIME, WILL REPORT TO NEXT SHIFT
--- NOTE | 2016-05-02 07:00 | NUR ---
REPORT RECIEVED ASSUMED CARE. PATIENT IN BED WITH IV INTACT. NO COMPLAINTS AT THIS TIME. CALL LIGHT WITHIN REACH.
[2016-05-02 08:03] VITALS: BP 123/75
--- NOTE | 2016-05-02 08:30 | NUR ---
ASSESSMENT COMPLETE, VS STABLE. DRESSING TO PARVIN CHANGED DUE TO OLD DRAINAGE. INCISION TO ABD CLEAN AND DRY. PATIENT COLOSTOMY INTACT. NGT INTACT AND TO LIWS. CALL LIGHT WITHIN REACH. FAMILY AT BEDSIDE.
--- NOTE | 2016-05-02 10:45 | NUR ---
PATIENT IN BED WITH IV INTACT. NO COMPLAINTS. FAMILY AT BEDSIDE. CALL LIGHT WITHIN REACH.
[2016-05-02 11:11] VITALS: BP 137/78
--- NOTE | 2016-05-02 13:00 | NUR ---
PATIENT IN BED WITH NO COMPLAINTS AT THIS TIME. IV INTACT. NGT TO LIWS. CALL LIGHT WITHIN REACH.
[2016-05-02 16:22] VITALS: BP 125/66
--- NOTE | 2016-05-02 18:24 | NUR ---
PATIENT IN BED WITH NO COMPLAINTS AT THIS TIME. IV INTACT. NGT LIWS, COLOSTOMY INTACT, FAMILY AT BEDSIDE. CALL LIGHT WITHIN REACH.
[2016-05-02 20:00] VITALS: BP 121/75
--- NOTE | 2016-05-02 22:04 | NUR ---
PATIENT ASSISTED TO BATHROOM. NO SIGNS OF DISTRESS NOTED. SCHEDULED MEDS GIVEN ORDERED. DENIES NEEDS AT THIS TIME. BED LOW. CALL LIGHT IN REACH.
[2016-05-03 00:30] VITALS: BP 122/68
--- NOTE | 2016-05-03 01:40 | NUR ---
EYES CLOSED RESPIRATIONS WITH EASE AND UN LABORED. SR UP X2 CALL LIGHT WITHIN REACH.
[2016-05-03 05:00] VITALS: BP 125/73
[2016-05-03 05:32] LABS: CALC OSMOLALITY 285 mosm/kg (275-300); CALCIUM 8.7 mg/dL (8.5-10.1); CARBON DIOXIDE 31.9 mmol/L (21.0-32.0); CHLORIDE - SERUM 105 mmol/L (98-107); GLUCOSE 160 mg/dL (74-106); PHOSPHOROUS 3.5 mg/dL (2.5-4.9); POTASSIUM - SERUM 4.5 mmol/L (3.5-5.1); SODIUM 142 mmol/L (136-145); UREA NITROGEN 13 mg/dL (7-18); eGFR NON AFRICAN AMERICAN 78 mL/min (90-120)
[2016-05-03 05:33] LABS: MAGNESIUM - SERUM 2.1 mg/dL (1.8-2.4)
[2016-05-03 09:12] VITALS: BP 130/76
--- NOTE | 2016-05-03 09:45 | NUR ---
PATIENT ALERT IN HIGH SORENSEN POSITION. RESPIRATIONS EVEN AND UNLABORED. FAMILY AND PRIMARY NURSE LAURENCE CANTU AT BEDSIDE. SIDE RAILS UP X2. BED IN LOW POSITION. CALL LIGHT IN REACH.
--- NOTE | 2016-05-03 11:15 | NUR ---
NUTRITION MONITORING & EVAL CHART REVIEWED. TPN RENEWED, INCREASED RATE TO 60 CC/HR. ADJUSTED ELECTROLYTES. NURSING MESSAGE TO DECREASE LACTATED RINGERS TO 40 CC/HR WHEN NEXT BAG TPN HUNG. WILL SPEAK TO NURSING RE:SAME. RD FOLLOWING
[2016-05-03 12:59] VITALS: BP 111/69
--- NOTE | 2016-05-03 19:32 | NUR ---
PT WAS ASSESSED THIS AM ON ROUNDS NO ACUTE DISTRESS NOTED NGT ADVANCED AND RESECURED TOLERATED WELL. PT OUTPUT IN NGT 650 ML DARK GREEN FLUID. PT WAS UP TO SHOWER TODAY PER THIS NURSE TOLERATED WELL DRESSING CHANGE NOTED TO PARVIN DRAIN. 17 CECIL NOTED TO ABDOMINAL INCISION NO SYMPTOMS OF INFECTION NOTED. PT WOUND EDGES WELL APPROXIMATED. AMBULATED WELL WITH PHYSICAL THERAPY. FAMILY AT SIDE
--- NOTE | 2016-05-04 02:00 | NUR ---
PT IN BED WITH NO DISTRESS. RESPIRATIONS ARE EVEN AND UNLABORED. SIDE RAILS X 2. BED LOW. CALL LIGHT IN REACH.
[2016-05-04 05:52] LABS: CALC OSMOLALITY 282 mosm/kg (275-300); CALCIUM 8.8 mg/dL (8.5-10.1); CARBON DIOXIDE 29.7 mmol/L (21.0-32.0); CHLORIDE - SERUM 104 mmol/L (98-107); GLUCOSE 136 mg/dL (74-106); MAGNESIUM - SERUM 1.9 mg/dL (1.8-2.4); PHOSPHOROUS 4.2 mg/dL (2.5-4.9); POTASSIUM - SERUM 4.2 mmol/L (3.5-5.1); SODIUM 141 mmol/L (136-145); UREA NITROGEN 12 mg/dL (7-18); eGFR NON AFRICAN AMERICAN 78 mL/min (90-120)
[2016-05-04 08:12] VITALS: BP 125/71
--- NOTE | 2016-05-04 08:26 | NUR ---
PT ASSESSMENT COMPLETE AWAKE AND ALERT ORNIETD X 3 LUNGS CLEAR BILATERALLY HAS BOWEL SOUNDS NOTED TO 2 QUADRANTS BILAT LOWER QUADS. NGT TO LIS NOTED WITH DARK GREEN FLUID TO SUCTION TUBING. PARVIN DRAIN PATENT TO SANGUANOUS DRAINAGE WITH SMALL AMOUNT OF OUTPUT. CECIL IN TACT TO ABDOMEN WOUND EDGES WELL APPROXIMATED
--- NOTE | 2016-05-04 10:15 | NUR ---
PATIENT UP AMBULATING IN HALLWAY WITH PHYSICAL THERAPY. NO SIGNS OF DITRESS NOTED.
--- NOTE | 2016-05-04 10:31 | NUR ---
NUTRITION MONITORING & EVAL LABS REVIEWED. ADDED PHOS TO AM LAB. RD FOLLOWING
[2016-05-04 11:28] VITALS: BP 114/65
--- NOTE | 2016-05-04 11:30 | NUR ---
PT AWAKE AND ALERT NO DISTRESS NOTED VOICES ALL NEEDS TO STAFF ALL ALDS PER STAFF ASSIST HAS PRODUTION TO ILLEOSTOMY POUCH WITH SOME SOLID PEICES NOTED GREEN IN COLOR NGT CLAMPED AT THIS TIME AFTER WALK FOR MED ADMINISTRATION.
[2016-05-04 12:06] VITALS: BP 114/65
--- NOTE | 2016-05-04 14:00 | NUR ---
NGT UNABLE TO FLUSH WATER THROUGH PLACEMENT CHECKED EARLIER VIA AUSCULTATION VERIFIED. HOWEVER WHEN MEDICATION GIVEN NGT WOULDNT ALLOW PASSAGE OF FLUID. NOTIFIED DR MASSEY ORDER FOR STAT KUB
--- NOTE | 2016-05-04 17:00 | NUR ---
DR MASSEY HERE UNSTOPPED NGT WITH PULSATION OF FLUID AND PRESSURE. TOLERATED WELL.
[2016-05-04 17:31] VITALS: BP 125/70
--- NOTE | 2016-05-04 19:00 | NUR ---
SITTIG UP IN BED AWAKE TALKING WITH , NGT IN PLACE AND DRAINING TO LIT, ASSISSTED WITH REPOSITIONING IN BED, JACOBY WELL, DENIES NEEDS, AT BEDSIDE, CL IN REACH
[2016-05-04 20:00] VITALS: BP 126/70
--- NOTE | 2016-05-04 21:42 | NUR ---
NO ACUTE DISTRESS NOTED PT AWAKE AND ALERT. SPOUSE AT BEDSIDE.
[2016-05-05] VITALS: BP 125/69
--- NOTE | 2016-05-05 | NUR ---
CARE ASSUMED AT THIS TIME. REPORT FROM LAURENCE LEON. PT RESTING QUIETLY WITH EYES CLOSED, RESP EVEN AND ULABORED ON ROOM AIR. NO S/S OF DISTRESS NOTED, NGT CONNECTED TO LOW INTERMITENT SUCTION, TPN INFUSING TO LT INFUSAPORT. AT BEDSIDE. BED IN LOWEST POSITION, CALL LIGHT IN REACH, ASSESSMENT PER FLOWSHEET.
--- NOTE | 2016-05-05 03:48 | NUR ---
PT REPOSITIONED IN BED, DENIES ANY NEEDS AT THIS TIME. BED IN LOWEST POSITION,CALL LIGHT IN REACH, WILL CONTINUE TO MONITOR.
[2016-05-05 04:00] VITALS: BP 108/59
[2016-05-05 05:47] LABS: BASOPHILS 0.3 % (0.0-2.0); HEMATOCRIT 34.1 % (42.0-54.0); IMMATURE GRANULOCYTES 1.6 % (0-5); LYMPHOCYTES 11.5 % (15-50); MCH 32.4 pg (26.0-34.0); MCHC 32.3 g/dL (31.0-37.0); MCV 100.3 fL (80.0-100.0); MEAN PLATELET VOLUME 9.9 fL (7.4-10.4); NEUTROPHILS 75.6 % (40-80); WBC 6.1 10x3/uL (4.8-10.8)
[2016-05-05 06:07] LABS: CALC OSMOLALITY 289 mosm/kg (275-300); CALCIUM 8.8 mg/dL (8.5-10.1); CARBON DIOXIDE 29.5 mmol/L (21.0-32.0); CHLORIDE - SERUM 106 mmol/L (98-107); GLUCOSE 140 mg/dL (74-106); PHOSPHOROUS 4.2 mg/dL (2.5-4.9); POTASSIUM - SERUM 4.2 mmol/L (3.5-5.1); SODIUM 144 mmol/L (136-145); UREA NITROGEN 15 mg/dL (7-18); eGFR NON AFRICAN AMERICAN 78 mL/min (90-120)
[2016-05-05 06:15] LABS: PLATELET COUNT 277 10x3/uL (130-400)
--- NOTE | 2016-05-05 07:00 | NUR ---
REPORT RECIEVED ASSUMED CARE. PATIENT IN BED WITH IV INTACT. NO COMPLAINTS. CALL LIGHT WITHIN REACH.
[2016-05-05 08:18] VITALS: BP 125/65
--- NOTE | 2016-05-05 10:51 | NUR ---
NUTRITION MONITORING & EVAL CHART REVIEWED. TPN ADJUSTED/RENEWED. LABS ORDERED X [address] FOLLOWING
[2016-05-05 11:41] VITALS: BP 110/64
--- NOTE | 2016-05-05 12:45 | NUR ---
OSTOMY TEACHING CONTINUES. MET WITH PT TODAY DEMONSTRATING HOW TO CHANGE APPLIANCE AND SKIN CARE. READING MATERIAL PROVIDED WELL PHONE NUMBER OF WOUND CARE NURSE. MRS. WOODARD STATED SHE WILL READ INFORMATION AND IF ANY QUESTIONS WILL LET ME KNOW. I WILL CONTINUE TO MONITOR.
[2016-05-05 15:53] VITALS: BP 95/59
--- NOTE | 2016-05-05 18:55 | NUR ---
PATIENT IN BED WITH IV INTACT. NGT LIWS. ILEOSTOMY CDI. PARVIN INTACT. NO COMPLAINTS AT THIS TIME. CALL LIGHT WITHIN REACH.
--- NOTE | 2016-05-05 19:40 | NUR ---
PT RESTING QUIETLY IN BED WATCHING TV, AAOX4. DENIES ANY NEEDS AT THIS TIME. BED IN LOWEST POSITION, CALL LIGHT IN REACH, ASSESSMENT PER FLOWSHEET.
[2016-05-05 20:00] VITALS: BP 117/63
--- NOTE | 2016-05-05 23:34 | NUR ---
PT UP TO BATHROOM WITH ASSIST. BACK TO BED. DENIES ANY NEEDS AT THIS TIME. BED IN LOWEST POSITION,CALL LIGHT IN REACH. WILL CONITINUE TO MONITOR.
[2016-05-06] VITALS: BP 106/62
--- NOTE | 2016-05-06 02:18 | NUR ---
ILLEOSTOMY LEAKING, REMOVED WAFFER AND CLEANED AREA WITH SOAP AND WATER. DRYED AND ATTACHED NEW WAFFER AND OSTOMY BAG. PT TOLERATED WELL. NEW LINENS AND GOWN AT THIS TIME ALSO.
[2016-05-06 04:00] VITALS: BP 119/72
--- NOTE | 2016-05-06 04:00 | NUR ---
PATIENT SLEEPING WITH NO DISTRESS NOTED. NG TUBE TO LIS. PARVIN DRAIN TO LEFT QUADRANT OF ABD. MIDLINE INCISION CLOSED WITH CECIL. TPN INFUSING TO LEFT PORT. SRX2. BED LOW. CALL LIGHT WITHIN REACH.
[2016-05-06 06:03] LABS: CALCIUM 9.4 mg/dL (8.5-10.1); CARBON DIOXIDE 30.3 mmol/L (21.0-32.0); MAGNESIUM - SERUM 2.5 mg/dL (1.8-2.4); PHOSPHOROUS 4.7 mg/dL (2.5-4.9); POTASSIUM - SERUM 4.3 mmol/L (3.5-5.1)
[2016-05-06 06:33] LABS: CREATININE - SERUM 1.3 mg/dL (0.6-1.3)
[2016-05-06 07:58] VITALS: BP 121/68
--- NOTE | 2016-05-06 08:00 | NUR ---
PT AWAKE AND ALERT NO ACUTE DISTRESS NOTED VOICES NEEDS NGT PATENT OT LIS PT STATES THAT HE DOSENT THINK HE HAS URINATED SINCE VOMITING YESTERDAY. BLADDER PALPATED HOWEVER NO DISTENTION NOTED MIDLINE INCISION NOTED TO HAVE CECIL IN TACT HAS PARVIN DRAIN NOTED TO LEFT UPPER QUADRANT.
--- NOTE | 2016-05-06 10:30 | NUR ---
NG CLAMPED AT THIS TIME, SO THAT PT CAN AMBULATE WITH PHYSICAL THERAPY. DENIES NEEDS AT THIS TIME. RESPIRATIONS EVEN AND NON LABORED. CALL LIGHT IN REACH. WILL CONTINUE WITH PLAN OF CARE.
--- NOTE | 2016-05-06 11:30 | NUR ---
ORDER RECIEVED TO BLADDER SCAN AND RUN 1000 ML FLUID BOLUS. SCAN SHOWS 440 ML FLUID TO BLADDER PT STATED EXTREME DISCOMFORT IN AND OUT CATH ORDERED AND PERFORMED MILD RESISTANCE NOTED WITH INSERTION OF CATHETER PER STERILE TECHNIQUE. 750 ML DARK TEA COLORED URINE RETURNED TO CATH BAG. TOLERATED WELL. PARVIN DRAIN DISCONTINUED PER ORDER TOLERATED WELL
[2016-05-06 11:39] VITALS: BP 111/64
--- NOTE | 2016-05-06 15:30 | NUR ---
DR MASSEY ROUNDS NOTIFIED OF TEA COLORED URINE WELL RESISTANCE AT INSERTION. DR MASSEY DIGITALLY STIMULATED ILLEOSTOMY SITE PT TOLERATED WITH MINIMAL PAIN. NO NEW ORDERS AT THIS TIME
[2016-05-06 15:45] VITALS: BP 116/65
--- NOTE | 2016-05-06 19:37 | NUR ---
INTRODUCED AND ASSESSED AT THIS TIME
[2016-05-06 20:00] VITALS: BP 123/68
--- NOTE | 2016-05-06 22:29 | NUR ---
ALL MEDS GIVEN AND PT HAS BEEN COOPERATIVE AND PLEASANT. ABD LOOKS GOO AND HE HAS HAD TORADOL FOR PAIN. ONCE UP TO THE BATHROOM TO VOID AND ONLY VOIDED A LITTLE. DID NOT WANT STRAIGHT CATHED AT THIS TIME. HAS SCD'S IN PLACE AND IS COMFORTALE AT THIS TIME.
[2016-05-07] VITALS: BP 117/60
[2016-05-07 04:00] VITALS: BP 104/60
[2016-05-07 05:21] LABS: ANION GAP 11.7 mmol/L (8-16); CALCIUM 8.8 mg/dL (8.5-10.1); CARBON DIOXIDE 30.7 mmol/L (21.0-32.0); CREATININE - SERUM 1.2 mg/dL (0.6-1.3); MAGNESIUM - SERUM 2.4 mg/dL (1.8-2.4); PHOSPHOROUS 4.7 mg/dL (2.5-4.9); POTASSIUM - SERUM 4.4 mmol/L (3.5-5.1)
--- NOTE | 2016-05-07 06:45 | NUR ---
PATIENT HAS BEEN IN AND OUT CATHED TWO TIMES DURING THE NIGHTAT HIS REQUEST DUE TO INABILITY TO VOID. THE FIRST AT ABOUT 2200 WAS 500 CC AND THEN THIS MORNING AT ABOUT 0400 WE ONLY OBTAINED 200 CC.
--- NOTE | 2016-05-07 07:32 | NUR ---
Patient awake and alert x3, he has an NG tube that is to low intermittant suction, port to left infusing TPN at 60, periph IV to left forearm ns at 30. Telemetry in place, patient has dressing to lower mid abdomen where there are sutures, minimal drainage noted to bottom of dressing. ileostomy intact and draining mostly green in color liquid, patient says he is not able to void urine on his own since Tuesday, he has been getting in and out caths, last one at 0400 with 200 ml urine out. just emptied ileostomy with 200 ml output. Patient does not have on scd's offered to place them on him, he said he would do it later.
[2016-05-07 08:13] VITALS: BP 106/61
[2016-05-07 12:43] VITALS: BP 108/65
--- NOTE | 2016-05-07 14:19 | NUR ---
RT NOTE- PT PLACED ON ROOM AIR AT 1100.PT SP02 96% ON ROOM AIR. WILL LEAVE ON ROOM AIR AND CONT TO MONITOR.
--- NOTE | 2016-05-07 14:26 | NUR ---
CM REASSESSMENT NOTE: PATIENT AND CHOSE [facility] AND SIGNED THE [facility]RO - REFERRAL WILL BE SENT.
[2016-05-07 15:50] VITALS: BP 111/60
--- NOTE | 2016-05-07 18:30 | NUR ---
SCANNED BLADDER AND DID NOTE 390 ML, PATIENT UNABLE TO VOID URINE ALL DAY, DID NOT WANT IN AND OUT CATH. HE ALSO C/O FEELING LIKE HE MAY VOMIT, LIKE HE HAS ACID REFLUX AND FEELS FULL. HE WANTS ME TO CALL THE DR AND SEE IF WE CAN RESTART THE SUCTION AND INSERT MCGEE CATH.
--- NOTE | 2016-05-07 18:39 | NUR ---
PAGED COMPOSITION MIXER
--- NOTE | 2016-05-07 18:44 | NUR ---
SPOKE TO DR. MASSEY, SEE ORDER.
--- NOTE | 2016-05-07 18:44 | NUR ---
NEW ORDER RECEIVED FOR RESTART SUCTION AND INSERT MCGEE.
[2016-05-07 21:03] VITALS: BP 104/59
--- NOTE | 2016-05-07 23:14 | NUR ---
PT WAS ASSESSED AT THE BEGINNING OF THE SHIFT. HE IS ALERT AND ORIENTED, ABLE TO VERBALIZE NEEDS. HIS ABD INCISION IS CLEAN DRY AND INTACT. HE NOW HAS A MCGEE CATH AND IT IS DRAINING WELL. NG TUBE IS TO LIS AND HAS GREEN BILE IN THE CANISTER. NO NAUSEA AT THIS TIME. TELEMETY IS IN PLACE AND ALL HS MEDS HAVE BEEN TAKEN. THE NG WAS CUT OFF FOR 30 MIN. TO LET THE MEDS WORK BEFORE PULLING THEM OFFWITH THE SUCTION. HIS NOSE REDONE WITH THE NG TUBE DRESSING DUE TO IT GETTING LOOSE. THE BED IS LOW, RAILS UP X'S 2 WITH THE CALL LIGHT AT HAND.
[2016-05-08 04:00] VITALS: BP 106/62
[2016-05-08 06:00] LABS: ANION GAP 11.5 mmol/L (8-16); CALCIUM 9.2 mg/dL (8.5-10.1); CARBON DIOXIDE 31.8 mmol/L (21.0-32.0); CREATININE - SERUM 1.3 mg/dL (0.6-1.3); MAGNESIUM - SERUM 2.7 mg/dL (1.8-2.4); PHOSPHOROUS 4.3 mg/dL (2.5-4.9); POTASSIUM - SERUM 4.3 mmol/L (3.5-5.1)
--- NOTE | 2016-05-08 07:15 | NUR ---
PT REC'D FROM DARON DEAN. RESTING IN BED WITH EYES CLOSED. EASILY AROSED. AAOX4. RATING CURRENT PAIN TO R SIDE OF FACE. NGT TO R NARE TO LOW INT WALL SUCTION PULLING THICK YELLOW FLUID. CANASTER CURRENTLY HOLDING 300CC'S OF THICK DARK BROWN FLUID. REGULAR HEART RATE AND RHYTHM. LUNG SOUNDS CLEAR AND EQUAL BILAT. HYPOACTIVE BOWEL SOUNDS X4 QUADRANTS. ILEOSTOMY DRAINING WATERY GREENISH/BROWN FLUID. DOUBLE STOMA'S BEEFY RED. NO DRAINAGE OR LEAKING AROUND WAYFER SITE. MIDLINE ABD INCISION HAS DRESSING ON IT WITH PURULENT AND SANGUINOUS DRAINAGE. WILL CHANGE. DRESSIN TO LLQ OF ABD CLEAN, DRY, AND INTACT. 16 FR MCGEE CATHETER DRAINING PORFIRIO URINE TO GRAVITY. L CHEST PORT INFUSING W/O ISSUES. PIV TO L FOREARM FREE OF S/SX OF INFECTION. BED LOW, CALL LIGHT IN REACH, DENIES NEEDS, WILL CPOC.
--- NOTE | 2016-05-08 07:45 | NUR ---
PATIENT ALERT IN MID SORENSEN POSITION. RESPIRATIONS EVEN AND UNLABORED. SIDE RAILS UP X2. BED IN LOW POSITION. CALL LIGHT IN REACH. LAURENCE MCKEON AT BEDSIDE.
--- NOTE | 2016-05-08 07:50 | NUR ---
PT COMPLAINING OF NAUSEA. NGT ADJUSTED. PLACEMENT CHECKED BY INJECTING AIR AND AUSCULTATING. PRN ZOFRAN ADMINISTERED. BED LOW, CALL LIGHT IN REACH, DENIES NEEDS, WILL REASSESS.
[2016-05-08 08:24] VITALS: BP 108/57
--- NOTE | 2016-05-08 09:40 | NUR ---
MORNING MEDS ADMINISTERED AT THIS TIME. DR. MSASEY IN ROOM DISCUSSING POC WITH PT. DRESSING TO MIDLINE ABD INCISION CHANGED. SITE APPROXIMATE, FREE OF REDDNESS, WITH MODERATE AMOUNT OF THIN YELLOW DRAINAGE. DRESSING TO LLQ OF ABD REMOVED AND NOT REPLACED PER DR. MASSEY. DANISHA KEITA, IN ROOM ASSITING WITH MED PASS. NGT CLAMPED AT THIS TIME. WILL REASSESS. PRN TORADOL ADMINISTERED PER PT COMPLAINTS OF 6/10 R SIDED FACE PAIN. WILL REASSESS. NO FURTHER COMPLAINTS OF NAUSEA. BED LOW, CALL LIGHT IN REACH, DENIES NEEDS, WILL CPOC.
[2016-05-08 10:33] LABS: BASOPHILS 0.1 % (0.0-2.0); HEMATOCRIT 34.7 % (42.0-54.0); HEMOGLOBIN 11.1 g/dL (13.5-17.5); LYMPHOCYTES 3.2 % (15-50); MCH 32.3 pg (26.0-34.0); MCV 100.9 fL (80.0-100.0); MEAN PLATELET VOLUME 9.8 fL (7.4-10.4); NEUTROPHILS 89.7 % (40-80); PLATELET COUNT 312 10x3/uL (130-400); RBC 3.44 10x6/uL (4.20-6.10); RDW 12.7 % (11.5-14.5); WBC 8.9 10x3/uL (4.8-10.8)
[2016-05-08 12:42] VITALS: BP 102/50
--- NOTE | 2016-05-08 12:45 | NUR ---
ONE TIME BOLUS DOSE OF LR ADMINISTERED AT THIS TIME. NG TUBE UNCLAMPED AND DRAINED OF APPROXIMATELY 250CC'S OF DARK YELLOW FLUID. CANISTER CHANGED. 1000CC'S OF THICK BROWN FLUID IN CANISTER. ONE TIME DOSE OF MAG CITRATE ADMINISTERED. MCGEE CATHETER HOLDING 150CC'S OF DARK YELLOW URINE IN COLLECTION BAG. BED LOW, CALL LIGHT IN REACH, DENIES NEEDS, CPOC.
--- NOTE | 2016-05-08 15:35 | NUR ---
ALERTED BY AFSHAN VAZQUEZ, THAT PT HAS TEMP OF 100.7, BP 103/50, HR 110, RESP 19, AND SPO2 93% ON RA. PT AAOX4. IN ROOM. CURRENT OUTPUT IN MCGEE CATHETER BAG 250CC'S OF DARK PORFIRIO URINE. NO COMPLAINTS. BED LOW, CALL LIGHT IN REACH, DENIES NEEDS, WILL CONTINUE TO MONITOR CLOSELY.
--- NOTE | 2016-05-08 16:03 | NUR ---
PT RESTING IN BED WITH IN ROOM. MCGEE CATHETER FLUSHED AND CLAMPED OFF TO SEE IF URINE WILL DRAIN. NO COMPLAINTS OF PAIN. CALL LIGHT IN REACH, DENIES NEEDS, CPOC.
--- NOTE | 2016-05-08 18:00 | NUR ---
DR. MASSEY PAGED TO ALERT OF DECREASED URINE OUTPUT OF 350CC'S AND TEMP OF 100.6.
--- NOTE | 2016-05-08 18:06 | NUR ---
DR. MASSEY CALLED BACK. STATED, "THATS FINE. ITS AT LEAST 30CC'S AN HOUR." NO NEW ORDERS.
[2016-05-08 18:39] VITALS: BP 103/50
[2016-05-08 20:49] VITALS: BP 100/53
--- NOTE | 2016-05-08 23:05 | NUR ---
ASSESSED AT THE BEGINNING OF THE SHIFT. PT IS ALERT AND ORIENTED, ABLE TO VERBALIZE NEEDS. IS ALSO STAYING THE NIGHT TONIGHT. ABD DRESSING IS CLEAN DRY AND INTACT, WE ARE EMPTYING THE ILEOSTOMY FREQUENTLY NEEDED. HE DOSENT FEEL WELL TONIGHT IS FACE IS JOSHUA AND HIS IS KEEPING A COOL WASH CLOTH ON HIS BROW. NG TUBE WAS CUT OFF FOR 30 MINUTES AFTER PO MEDS AND THEN RESTARTED. HE IS PUTTING OUT GREEN BILE AND HAS SOME ICE CHIPS AT THE BEDSIDE. MCGEE CHECKED AND NO PROBLEMS NOTED. BED IS LOW, RAILS UP X'S 2 WITH THE CALL LIGHT AT HAND.
[2016-05-09] VITALS (16 sets, daily range): BP systolic 83–120; BP diastolic 45–65
[2016-05-09 05:59] LABS: ANION GAP 10.4 mmol/L (8-16); CALCIUM 8.9 mg/dL (8.5-10.1); CARBON DIOXIDE 30.3 mmol/L (21.0-32.0); MAGNESIUM - SERUM 2.8 mg/dL (1.8-2.4); PHOSPHOROUS 3.6 mg/dL (2.5-4.9); POTASSIUM - SERUM 4.7 mmol/L (3.5-5.1)
[2016-05-09 06:00] LABS: CREATININE - SERUM 1.7 mg/dL (0.6-1.3)
--- NOTE | 2016-05-09 07:30 | NUR ---
REPORT REC'D FROM DARON DEAN. DINORAH, RT, IN ROOM DOING EKG AND ABG DRAW. PT LETHARGIC, AAOX4. STARTING NS BOLUS.
--- NOTE | 2016-05-09 07:32 | NUR ---
CURRENTLY RUNNING [address] ON TELEMETRY. LUNG SOUNDS WITH SOME CRACKLES THAT CLEAR WITH A COUGH. BOWEL SOUNDS TO RUQ LUQ ABSENT AND TO LLQ HYPOACTIVE. PT VERY LETHARGIC, BUT EASILY AROUSED. CURRENT URINE OUTPUT OF 100CC'S OF DARK YELLOW URINE. CURRENT BP 90/49, HR 114, CURRENT TEMP 99.7, RESP 15 SHALLOW AND UNLABORED. DRESSING TO MIDLINE ABD INCISION REMOVED. MILD AMOUNT OF PURULENT DRAINAGE. NO ODOR. NO COMPLAINTS OF PAIN UNLESS SWALLOWING. STATES ICE CHIPS HELP. CURRENT OUTPUT IN NG 75CC'S OF DARK BROWN FLUID. SPOKE WITH DR. MASSEY THIS MORNING. HE ASKED WHY HE WAS NOT CONTACTED LAST NIGHT ABOUT PTS DECREASE IN URINE OUTPUT, DECREASED BP, AND INCREASED HR. STATED HE WOULD BE HERE SOON. AWAITING HIS ARRIVAL.
[2016-05-09 07:52] LABS: CKMB 0.2 U/L (0.0-3.6); CREATINE KINASE 44 UL (21-232); TROPONIN-I < 0.017 ng/mL (0.000-0.060)
--- NOTE | 2016-05-09 09:05 | NUR ---
MORNING MEDS PASSED. PT RESTING IN BED WITH EYES CLOSED. EASILY AROUSED. AAOX4. 2ND NS BOLUS INFUSING. CURRENT BP 86/52, HR 108, TEMP 100, RESP SHALLOW AND UNLABORED 16, NO COMPLAINTS OF PAIN. CURRENT URINE OUTPUT OF 100CC'S OF CLEAR PORFIRIO URINE. NGT CANISTER HOLDING 125CC'S OF THICK DARK BROWN FLUID. ILEOSTOMY HOLDING APPROXIMATELY 150CC'S OF DARK BROWN/GREEN WATERY STOOL. BED LOW, CALL LIGHT IN REACH, NO COMPLAINTS OF PAIN, CPOC.
--- NOTE | 2016-05-09 09:35 | NUR ---
PATIENT IN MID SORENSEN POSITION RESTING QUIETLY. FAMILY AND JUANY STUDENTS AND INSTRUCTOR AT BEDSIDE. SIDE RAILS UP X2. BED IN LOW POSITION. CALL LIGHT IN REACH.
--- NOTE | 2016-05-09 09:51 | NUR ---
2ND BOLUS FINISHED. POST BOLUS VS. BP 89/48, HR 109, SPO2 95% ON 3L, RESP 16.
--- NOTE | 2016-05-09 11:26 | NUR ---
PT RESTING IN BED WITH EYES CLOSED. EASILY AROUSED. PROTONIX DRIP STARTED. CURRENT VS: BP 89/45, HR 101, TEMP (AXILLARY) 99.9, RESP 15, O2 SAT 95% ON 3L VIA NC. COMPLETE BED BATH AND LINEN CHANGE PROVIDED BY DANISHA KEITA, AND AFSHAN LEON. NGT SUCTION STARTED AGAIN. BED LOW, CALL LIGHT IN REACH, CPOC.
[2016-05-09 12:33] LABS: ALBUMIN 2.4 g/dL (3.4-5.0); ANION GAP 13.4 mmol/L (8-16); BILIRUBIN - TOTAL 0.37 mg/dL (0.2-1.3); CALCIUM 8.2 mg/dL (8.5-10.1); CARBON DIOXIDE 29.2 mmol/L (21.0-32.0); CREATININE - SERUM 1.6 mg/dL (0.6-1.3); POTASSIUM - SERUM 4.6 mmol/L (3.5-5.1); PROTEIN - SERUM 5.6 g/dL (6.4-8.2)
--- NOTE | 2016-05-09 13:45 | NUR ---
CT CALLED TO ASK ABOUT CONTRAST, RADIOLOGIST DOES NOT WANT TO USE CONTRAST
[2016-05-09 14:03] LABS: CKMB 0.4 U/L (0.0-3.6); CREATINE KINASE 42 UL (21-232)
[2016-05-09 14:06] LABS: TROPONIN-I < 0.017 ng/mL (0.000-0.060)
--- NOTE | 2016-05-09 14:30 | NUR ---
500CC BOLUS ADMINISTERED PER ORDERS. LIPIDS HUNG AT THIS TIME. CURRENT OUTPUT 150CC'S OF PORFIRIO URINE IN CATHETER BAG. URINE SAMPLE COLLECTED FROM SAMPLE PORT OF [place]. SENT TO LAB. IN ROOM. BED LOW, CALL LIGHT IN REACH, DENIES NEEDS.
--- NOTE | 2016-05-09 15:22 | NUR ---
UA COLLECTED AND SENT TO LAB
--- NOTE | 2016-05-09 15:45 | NUR ---
20 GUAGE IV SITED TO R HAND. X2 ATTEMPTS. FLUSHES AND DRAWS FINE.
--- NOTE | 2016-05-09 15:48 | NUR ---
REPORT CALLED TO DARON MENDES, IN ICU. PT TRANSFERED TO HAVE CT DONE.
--- NOTE | 2016-05-09 15:51 | NUR ---
RECIEVED PT AT THIS TIME. REPORT RECIEVED FROM MIKE. NOTED PT ARRIVED VIA BED ACCOMPANIED BY HOSPITAL STAFF. NO ACUTE DISTRESS NOTED. PT ALERT AND ORIENTED. ILEOSTOMY BAG EMPTIED AT THIS TIME AND NOTED WITH 450 ML DARK GREEN COLORED LIQUID STOOL FROM BAG. NGT SET TO LOW INT SUCTION. WILL CONTINUE PLAN OF CARE.
--- NOTE | 2016-05-09 17:11 | NUR ---
SPOKE WITH DR MASSEY, NOTED REQUEST TO BE CALLED WHEN CT RESULTS COME IN. WILL CALL DR MASSEY WHEN RESULTS OF CT COME IN. WILL CONTINUE PLAN OF CARE.
--- NOTE | 2016-05-09 17:45 | NUR ---
ILEOSTOMY BAG CHANGED AT THIS TIME, OLD ONE HAD NOTED TO LEAK ONTO BED FROM UNDER WAFER. NO AUCTE DISTRESS NOTED.WILL CONTINUE PLAN OF CARE.
--- NOTE | 2016-05-09 18:50 | NUR ---
UP IN BED AWAKE VISITING WITH AT THIS TIME. NO ACUTE DISTRESS NOTED AT THIS TIME. WILL CONTINUE PLAN OF CARE.
[2016-05-09 19:26] LABS: CKMB 0.7 U/L (0.0-3.6); CREATINE KINASE 55 UL (21-232); TROPONIN-I < 0.017 ng/mL (0.000-0.060)
--- NOTE | 2016-05-09 19:30 | NUR ---
REC'D TO CARE, GUN STOCK MAKER PER FLOWSHEET. VSS. PT COOPERATIVE, DENIES PAIN OR NEEDS. ORAL CARE PROVIDED - PT WITH MODERATE WEAKNESS BOTH ARMS, REPORTS "MY FINE MOTOR SKILLS ARE BAD", HX CVA - R SIDE WEAKNESS. NPO X ICE CHIPS. ALARMS ON AND PT USES C/L.
--- NOTE | 2016-05-09 21:00 | NUR ---
NO VISITORS. VSS. PT RESTING WITH EYES CLOSED.
--- NOTE | 2016-05-09 21:46 | NUR ---
RT AT BS - FOR I.S. AND FLUTTER. SPUTUM SAMPLE OBTAINED WITH GOOD COUGH.
--- NOTE | 2016-05-09 22:37 | NUR ---
REASSESSMENT PER FLOWSHEET. NO ACUTE CHANGES. PT REPOSITIONED FOR COMFORT AND ORAL CARE PROVIDED..
[2016-05-10] VITALS (13 sets, daily range): BP systolic 102–127; BP diastolic 61–71
--- NOTE | 2016-05-10 01:05 | NUR ---
RESTING WITH EYES CLOSED, NO SIGN OF DISTRESS.
--- NOTE | 2016-05-10 02:18 | NUR ---
UP IN BED TO R SIDE. ORAL CARE AND ICE CHIPS PROVIDED. PT DENIES OTHER NEEDS. VSS.
--- NOTE | 2016-05-10 03:24 | NUR ---
REASSESSMENT PER FLOWSHEET, NO ACUTE CHANGES.
[2016-05-10 03:29] LABS: BASOPHILS 0.3 % (0.0-2.0); EOSINOPHILS 5.6 % (0-7); HEMATOCRIT 31.7 % (42.0-54.0); HEMOGLOBIN 9.7 g/dL (13.5-17.5); IMMATURE GRANULOCYTES 0.6 % (0-5); LYMPHOCYTES 6.7 % (15-50); MCH 31.6 pg (26.0-34.0); MCHC 30.6 g/dL (31.0-37.0); MCV 103.3 fL (80.0-100.0); MEAN PLATELET VOLUME 10.4 fL (7.4-10.4); MONOCYTES 4.6 % (2-11); NEUTROPHILS 82.2 % (40-80); PLATELET COUNT 250 10x3/uL (130-400); RBC 3.07 10x6/uL (4.20-6.10); RDW 12.7 % (11.5-14.5); WBC 6.6 10x3/uL (4.8-10.8)
[2016-05-10 03:42] LABS: ANION GAP 12.9 mmol/L (8-16); CALCIUM 8.8 mg/dL (8.5-10.1); CARBON DIOXIDE 28.8 mmol/L (21.0-32.0); CREATININE - SERUM 1.2 mg/dL (0.6-1.3); POTASSIUM - SERUM 4.7 mmol/L (3.5-5.1)
[2016-05-10 03:49] LABS: MAGNESIUM - SERUM 3.2 mg/dL (1.8-2.4)
--- NOTE | 2016-05-10 04:48 | NUR ---
AM LAB WNL. PT RESTING QUIETLY, C/L IN REACH.
--- NOTE | 2016-05-10 07:15 | NUR ---
REPORT RECIEVED FROM HEALTH THERAPIST NURSE. PT RESTING IN BED QUIETLY. DENIES DISCOMFORT AT THIS TIME. VSS ON CM. NGT TO LIS. ABD DISTENDED, BUT SOFT AND NON TENDER. INCISION SITES WELL APPROXIMATED WITH NO EVIDENT SIGNS OF INFECTION. ILEOSTOMY BAG WITH BROWN/WATERY OUTPUT. TESTICLES ELEVATED USING PILLOW SHAM TO ALLEVIATE SOME DISCOMFORT FROM BILAT GROIN SITES THAT ARE RED AND TENDER. NYSTATIN POWDER ORDERED. SCDS IN PLACE. NO SWELLING NOTED TO LE. CALL LIGHT IN REACH. BED IN LOW POSITION. WILL CONT TO ASSESS. ASSESSMENT COMPLETE PER FLOWSHEET.
--- NOTE | 2016-05-10 07:45 | NUR ---
DR. MASSEY AT BEDSIDE. STATED TO CLAMP NGT AND ALLOW PT TO HAVE ICE CHIPS WITH SIPS OF WATER.
--- NOTE | 2016-05-10 08:30 | NUR ---
PT HAS TOLERATED ICE CHIPS WELL. STATES HE SOMETIMES HAS DISCOMFORT IN ABD WHEN COUGHING. STATED TO PT TO USE PILLOW TO SPLINT ABD WHEN COUGHING. CALL LIGHT IN REACH. BED IN LOW POSITION. WILL CONT TO ASSESS.
--- NOTE | 2016-05-10 09:35 | NUR ---
NUTRITION MONITORING & EVAL CHART REVIEWED. SPOKE WITH DR. MASSEY. TPN ADJUSTED, RENEWED. PHOS ADDED TO AM LABS. RD FOLLOWING
--- NOTE | 2016-05-10 10:15 | NUR ---
REPOSITED FOR COMFORT. TURNED TO LEFT SIDE. NGT REMAINS CLAMPED WITH NO N/V. VSS ON CM. DENIES FURTHER NEED. CALL LIGHT AND PERSONAL BELONGINGS IN REACH. WILL CONT TO ASSESS.
--- NOTE | 2016-05-10 12:00 | NUR ---
AT BEDSIDE. UPDATE PROVIDED.
--- NOTE | 2016-05-10 14:00 | NUR ---
CALL LIGHT ANSWERED. PT STATED HE WAS COLD. WARM BLANKET OBTAINED. COOL RAG PLACED ON FOREHEAD PER PT REQUEST. DENIES FURTHER NEEDS. WILL CONT TO ASSESS.
--- NOTE | 2016-05-10 16:30 | NUR ---
TRANSFERED TO [facility], REPORT GIVEN TO LAURENCE FINCH.
--- NOTE | 2016-05-10 16:45 | NUR ---
RECEIVED TO ROOM 2218 FROM ICU VIA . ORIENTED TO ROOM AND CALL LIGHT SYSTEM. IN ROOM. NGT CLAMPED. CALL LIGHT IN REACH. WILL CONTINUE WITH PLAN OF CARE.
--- NOTE | 2016-05-10 17:08 | NUR ---
FSBS 160. ICE TEA MADE AND TAKEN TO PATIENT PER HIS REQUEST.
--- NOTE | 2016-05-10 18:36 | NUR ---
NO CHANGES IN INITIAL ASSESSMENT. CALL LIGHT IN REACH. WILL CONTINUE WITH PLAN OF CARE.
--- NOTE | 2016-05-10 20:00 | NUR ---
ASSESSMENT PER FLOWSHEET. IV PATENT RT INFUSAPORT OF TPN AT 50CC'S/HR. IV PATENT RT ARM OF NS AT 10CC'S/HR PROTONIX DRIP AT 10CC'S/HR. FOEY TO BS DRAINAGE WITH PORFIRIO CHAUDHRY NOTED MIDLINE ABDOMINAL INCISION DRESSING C/D/I RT ILEOSTOMY BAG IN PLACE WITH DARK BROWN/GREEN DRAINAGE. BAG LEAKING BED WET. CHANGED OUT OSTOMY BAG AND NEW APPLIANCE APPLIED EMPTIED BAG.
--- NOTE | 2016-05-10 22:00 | NUR ---
MEDS GIVEN PER MAR. UKRI=[phone] NO COVERAGE.
[2016-05-11] VITALS: BP 110/58
--- NOTE | 2016-05-11 | NUR ---
RESTING AT THIS TIME. REPOSITIONED IN BED NGT PATENT AND CLAMPED NO C/O NAUSEA OR VOMITING.
--- NOTE | 2016-05-11 02:30 | NUR ---
ILEOSTOMY BAG EMPTIED. AND RECORDED ON I&O SHEET.
[2016-05-11 04:00] VITALS: BP 110/57
[2016-05-11 05:46] LABS: ANION GAP 12.9 mmol/L (8-16); CALCIUM 8.9 mg/dL (8.5-10.1); CARBON DIOXIDE 28.9 mmol/L (21.0-32.0); CREATININE - SERUM 1.1 mg/dL (0.6-1.3)
[2016-05-11 05:49] LABS: MAGNESIUM - SERUM 2.2 mg/dL (1.8-2.4); PHOSPHOROUS 4.8 mg/dL (2.5-4.9); POTASSIUM - SERUM 3.8 mmol/L (3.5-5.1)
--- NOTE | 2016-05-11 06:27 | NUR ---
ILEOSTOMY BAG EMPTIED. REPOSITIONED IN BED SR UP X2 CALL LIGHT WITHIN REACH.
--- NOTE | 2016-05-11 07:30 | NUR ---
AWAKE ALERT COLOR ADQ SKIN WARM AND DRY OSTOMY IN PLACE LIQ GREEN DRAINAGE IN BAG MCGEE CATH IN PLACE AND DRAINING YELLOW URINE AT PRESENT.N/G INPLACED AND CLAMPED TPN KALEIGH RT IP ANF PROT DRIP IN RDH ALONG WITH IV FLUIDS.
--- NOTE | 2016-05-11 08:00 | NUR ---
VS NEW ORDERS R/N AT PRESENT.
[2016-05-11 08:02] VITALS: BP 118/57
--- NOTE | 2016-05-11 10:00 | NUR ---
N/S BOLUS OF 1000CC STARTED AT PRESENT.
--- NOTE | 2016-05-11 10:00 | NUR ---
AMB IN [place] WITH PT JACOBY WELL AT PRESENT N/C VOICED.
--- NOTE | 2016-05-11 10:52 | NUR ---
UP AMB IN HALLWAY WITH PT JACOBY WELL AT PRESENT.
--- NOTE | 2016-05-11 12:00 | NUR ---
LAYING QUIETLY IN BED AT PRESENT DENIES ANY NEEDS STATES NOT READY TO EAT YET.
[2016-05-11 12:39] VITALS: BP 126/76
--- NOTE | 2016-05-11 14:00 | NUR ---
QUIET IN ROOM DENIE ANY NEEDS OSTOMY IN PLACE AT PRESENT.
--- NOTE | 2016-05-11 16:00 | NUR ---
BACK TO BED FROM WALK AT PRESENT.
[2016-05-11 16:30] VITALS: BP 101/62
--- NOTE | 2016-05-11 17:21 | NUR ---
SITTING UP IN CHAIR AT PRESENT TO EAT CHICKEN NOODLE SOUP AT BEDSIDE.
--- NOTE | 2016-05-11 18:47 | NUR ---
AMB IN HALLWAY WITH AT PRESENT.
[2016-05-11 19:00] VITALS: BP 113/52
--- NOTE | 2016-05-11 19:58 | NUR ---
OT NOTE: PT COMPLETED BED MOB FOR DECREASED RISK OF SKIN BREAKDOWN. PT COMPLETED UE FINE MOTOR AXS FOR INCREASED I WITH ADLS. PT COMPLETED SIMPLE GROOMING TASK WITH SET UP. THANK YOU, TRENT COPELAND/Jourdan
--- NOTE | 2016-05-11 20:00 | NUR ---
ASSESSMENT PER FLOWSHEET. RESTING QUIETLY IN BED. SR UP X2 CALL LIGHT WITHIN REACH.IV RT WRIST OF NS AT 10CC'S/HR PROTONIX GTT AT 10CC'S/HR. TPN AT 50CC'S/HR TO LEFT INFUSAPORT. SITES CLEAR. MCGEE TO BS DRAINAGE WITH CONCENTRATED URINE. RT LOWER ABDOMEN STOMA ILEOSTOMY IN PLACE BAG IN PLACE. WITH BROWN DRAINAGE NOTED.
--- NOTE | 2016-05-11 22:00 | NUR ---
MEDS GIVEN PER MAY. AOXE=[phone]. NO S/S ORDERED.
[2016-05-12] VITALS: BP 113/91
--- NOTE | 2016-05-12 00:18 | NUR ---
VS TAKEN QQUM=534.4. WILL CONTINUE PLAN OF CARE AND MONITOR TEMP.
--- NOTE | 2016-05-12 02:15 | NUR ---
EYES CLOSED RESPIRATIONS WITH EASE AND UNLABORED.
--- NOTE | 2016-05-12 04:30 | NUR ---
VSCO=[id number].NO COVERAGE NEEDED. MEDS GIVEN PER MAY.
--- NOTE | 2016-05-12 05:46 | NUR ---
RESTING QUIETLY DENIES NEEDS.
[2016-05-12 05:50] LABS: BASOPHILS 0.2 % (0.0-2.0); EOSINOPHILS 2.6 % (0-7); HEMATOCRIT 31.1 % (42.0-54.0); HEMOGLOBIN 9.9 g/dL (13.5-17.5); IMMATURE GRANULOCYTES 0.6 % (0-5); LYMPHOCYTES 14.7 % (15-50); MCH 31.2 pg (26.0-34.0); MCHC 31.8 g/dL (31.0-37.0); MCV 98.1 fL (80.0-100.0); MONOCYTES 7.6 % (2-11); NEUTROPHILS 74.3 % (40-80); PLATELET COUNT 262 10x3/uL (130-400); RBC 3.17 10x6/uL (4.20-6.10); RDW 12.4 % (11.5-14.5)
[2016-05-12 06:19] LABS: CALC OSMOLALITY 282 mosm/kg (275-300); CALCIUM 8.5 mg/dL (8.5-10.1); CARBON DIOXIDE 26.5 mmol/L (21.0-32.0); CHLORIDE - SERUM 104 mmol/L (98-107); GLUCOSE 102 mg/dL (74-106); MAGNESIUM - SERUM 1.7 mg/dL (1.8-2.4); PHOSPHOROUS 3.8 mg/dL (2.5-4.9); SODIUM 141 mmol/L (136-145); UREA NITROGEN 17 mg/dL (7-18); eGFR NON AFRICAN AMERICAN 78 mL/min (90-120)
[2016-05-12 06:24] LABS: POTASSIUM - SERUM 4.5 mmol/L (3.5-5.1)
--- NOTE | 2016-05-12 07:15 | NUR ---
SLEEPING QUIETLY AT PRESENT DENIES ANY NEEDS AT THIS TIME OSTOMY IN PLACE LIQ GREEN STOOL NOTED AT PRESENT.
[2016-05-12 08:31] VITALS: BP 117/62
--- NOTE | 2016-05-12 09:15 | NUR ---
MEDS GIVEN JACOBY WELL AT PRESENT N/C WATCHING TV QUIETLY AT PREENT.
--- NOTE | 2016-05-12 11:00 | NUR ---
MCGEE CATH REMOVED VIA BRIDGER RN PT INFORMED NEEDS TO VOID IN 8-10 HOURS DEMONSTRATES UNDERSTANDING.
--- NOTE | 2016-05-12 11:04 | NUR ---
galvin catheter removed after balloon deflated. urinal placed at bedside for use. instructed pt that burning sensation may occur for first time or two or urination and this was normal. ostomy bag emptied per patient with instructions from nurse watching.
[2016-05-12 11:46] VITALS: BP 106/64
--- NOTE | 2016-05-12 13:00 | NUR ---
AMB IN HALLWAY WALKING WITH PT JACOBY WELL AT PRESENT.
--- NOTE | 2016-05-12 15:00 | NUR ---
SITTING UP IN CHAIR AT PRESENT .
[2016-05-12 16:17] VITALS: BP 116/59
--- NOTE | 2016-05-12 18:00 | NUR ---
OSTOMY LEAKING AGAIN RECLEAN LEAKING STOOL AND WATERY STOOL ALSO PLACED BACK TO BED AT PRESENT.
--- NOTE | 2016-05-12 19:00 | NUR ---
PT HAS NOT VOIDED YET HAS BEEN UP FOR ALL MEALS IN CHAIR.
--- NOTE | 2016-05-12 19:21 | NUR ---
OT NOTE: PT COMPLETED BUE AROM EXS IN ALL PLANES FOR INCREASED AX TOLERANCE. PT COMPLETED BED MOB WITH SUPV. PT COMPLETED ORAL CARE WITH SET UP. THANK YOU, BETHANIE COPELAND
--- NOTE | 2016-05-12 20:00 | NUR ---
ASSESSMENT PER FLOWSHEET. COLOSTOMY BAG LEAKING. NEW SET UP APPLIED TO SITE. LINENS CHANGED. IV PATENT RT HAND OF NS AT 10CC'S/HR. SITE CLEAR.
[2016-05-12 21:00] VITALS: BP 111/57
--- NOTE | 2016-05-12 21:30 | NUR ---
MEDS GIVEN PER MAR.
--- NOTE | 2016-05-12 22:00 | NUR ---
PT SITTING ON SIDE OF BED VOIDED 300CC'S PORFIRIO COLORED URINE.
--- NOTE | 2016-05-13 | NUR ---
EYES CLOSED RESPIRATIONS WITH EASE AND UNLABORED.
[2016-05-13 02:30] VITALS: BP 101/59
--- NOTE | 2016-05-13 03:01 | NUR ---
RESTING QUIETLY DENIES NEEDS.
[2016-05-13 05:53] LABS: ANION GAP 12.6 mmol/L (8-16); CALCIUM 8.6 mg/dL (8.5-10.1); CARBON DIOXIDE 27.4 mmol/L (21.0-32.0); CREATININE - SERUM 1.2 mg/dL (0.6-1.3); MAGNESIUM - SERUM 1.7 mg/dL (1.8-2.4); PHOSPHOROUS 3.1 mg/dL (2.5-4.9)
--- NOTE | 2016-05-13 08:00 | NUR ---
PT ASSESSMENT COMPETE NO ACUTE DISTRESS NOTED VOICES ALL NEEDS TO STAFF ALL ADLS PER STAFF SEE FLOWSHEET FOR ASSESSMENT
[2016-05-13 08:35] VITALS: BP 108/59
--- NOTE | 2016-05-13 12:07 | NUR ---
PT SEEN FOR RELAY ASSOCIATE NOTE. STATES HE DOES NOT FEEL WELL THIS AM. NOTED SCOPALAMINE PATCH TO BACK OF RIGHT EAR-REMOVED PATCH. OSTOMY NOTED WITHOUT ANY LEAKAGE TO SKIN AROUND WAFER. NO NAUSEA THIS AM VOICED. CALL LIGHT IN REACH
[2016-05-13 13:31] VITALS: BP 113/59
[2016-05-13 16:17] VITALS: BP 116/60
--- NOTE | 2016-05-13 17:21 | NUR ---
OT NOTE: PT COMPLETED GROOMING TASK WITH SET UP AT BEDSIDE. PT COMPLETED SUPINE TO SIT WITH SUPV. PT COMPLETED BUE AROM EXS FOR INCREASED ACTIVITY TOLERANCE. THANK YOU, BETHANIE COPELAND
--- NOTE | 2016-05-13 17:51 | NUR ---
PT AT SIDE NO DISTRESS NOTED HAD EMESIS X 1 TREATED WITH ZOFRAN NO FURTHER NAUSEA NOTED AMBULATED WELL WITH PHYSICAL THERAPY.
[2016-05-13 20:00] VITALS: BP 120/57
[2016-05-14] VITALS: BP 119/60
[2016-05-14 04:00] VITALS: BP 102/61
[2016-05-14 05:50] LABS: BASOPHILS 0.2 % (0.0-2.0); EOSINOPHILS 2.6 % (0-7); HEMATOCRIT 28.8 % (42.0-54.0); HEMOGLOBIN 9.1 g/dL (13.5-17.5); IMMATURE GRANULOCYTES 1.1 % (0-5); LYMPHOCYTES 16.3 % (15-50); MCH 30.5 pg (26.0-34.0); MCHC 31.6 g/dL (31.0-37.0); MCV 96.6 fL (80.0-100.0); MEAN PLATELET VOLUME 10.7 fL (7.4-10.4); NEUTROPHILS 70.8 % (40-80); PLATELET COUNT 266 10x3/uL (130-400); RBC 2.98 10x6/uL (4.20-6.10); RDW 12.5 % (11.5-14.5); WBC 4.7 10x3/uL (4.8-10.8)
[2016-05-14 05:59] LABS: ANION GAP 11.6 mmol/L (8-16); CALCIUM 8.4 mg/dL (8.5-10.1); CARBON DIOXIDE 27.2 mmol/L (21.0-32.0); CREATININE - SERUM 1.1 mg/dL (0.6-1.3); MAGNESIUM - SERUM 1.6 mg/dL (1.8-2.4); POTASSIUM - SERUM 3.8 mmol/L (3.5-5.1)
[2016-05-14 08:13] VITALS: BP 105/58
--- NOTE | 2016-05-14 11:39 | NUR ---
OSTOMY LEAKING. CLEANSED STOMA AND SURROUNDING SKIN AND APPLIED NEW APPLIANCE.
[2016-05-14 12:26] VITALS: BP 130/76
[2016-05-14] MEDS ORDERED: FLOMAX0.4 MG PO (13:34)
[2016-05-14] MEDS ORDERED: FLORAJEN3 CAPS460 MG PO (13:35)
[2016-05-14] MEDS ORDERED: ZOFRAN ODT4 MG/UDTAB PO (13:35)
[2016-05-14] MEDS ORDERED: ULTRAM50 MG PO (13:36)
[2016-05-14] MEDS ORDERED: ELIQUIS2.5 MG PO (13:38)
--- NOTE | 2016-05-14 13:59 | NUR ---
OT NOTE: PT WAS UP IN CHAIR FOR MEAL; REQUIRES EXT TIME WITH SLOW SIPS AND BITES TO PREVENT NAUSEA; HE IS ABLE TO PERFORM TRANSFERS WITH CGA; AMB IN ROOM WITH CGA; REMAINS WEAK AND BECOMES SOB WITH MINIMAL EXERTION
--- NOTE | 2016-05-14 14:00 | NUR ---
SITTING UP IN CHAIR,WITHOUT DISTRESS.WILL DC STAPLE AFTER AMBULATING WITH PT AND PT BACK IN BED.
[2016-05-14 16:09] VITALS: BP 106/58
--- NOTE | 2016-05-14 18:00 | NUR ---
CECIL X4 REMOVED FROM ABDOMINAL INCISION ORDERED.PT TOLERATED WELL.PT REMAINS UP IN CHAIR WITHOUT CHANGE.COLOSTOMY CHANGED X2 TODAY WITH 900 CC COLLECTED IN BAG TOTAL AND MODERATE AMOUNT TO BEDDING.CONT PLAN OF CARE
--- NOTE | 2016-05-14 18:50 | NUR ---
OT NOTE: PT COMPLETED DYNAMIC SITTING BALANCE WITH SBA, PT COMPLETED GROOMING TASK WITH SET UP . PT COMPLETED BUE AROM AXS FOR INCREASED ACTIVITY TOLERANCE. THANK YOU, TRENT COPELAND/Jourdan
--- NOTE | 2016-05-15 00:02 | NUR ---
PT IS AWAKE EATING HIS SNACK. HE IS ALERT AND ORIENTED, ABLE TO VERBALIZE NEEDS. HE IS NOT WEARING O2 AND HIS RESPIRATIONS ARE EVEN AND UNLABORED, NO SIGNS OF DISTRESS NOTED. THE BED IS LOW, RAILS UP X'S 2 WITH THE CALL LIGHT AT HAND.
[2016-05-15 04:00] VITALS: BP 126/70
[2016-05-15 05:59] LABS: ANION GAP 13.9 mmol/L (8-16); CALCIUM 8.8 mg/dL (8.5-10.1); CREATININE - SERUM 1.1 mg/dL (0.6-1.3); POTASSIUM - SERUM 3.9 mmol/L (3.5-5.1)
--- NOTE | 2016-05-15 08:16 | NUR ---
AWAKE ALERT COLOR ADQ SKIN WARM AND DRY RESP EVEN AND UNLABORED AT PRESENT OSTOMY BAG IN PLACE LOOSE STOOL NOTED AT PRESENT.
[2016-05-15 10:36] VITALS: BP 122/67
[2016-05-15 11:32] VITALS: BP 124/70
[2016-05-15 15:12] VITALS: BP 124/67
--- NOTE | 2016-05-15 19:00 | NUR ---
REMAINS AT BEDSIDE DENIES ANY NEEDS .
--- NOTE | 2016-05-15 20:10 | NUR ---
ASSESSMENT COMPLETED, NO ACUTE DISTRESS NOTED, COLOSTOMY BAG AND WAFER INTACT, IV INFUSING, AT BEDSIDE, PT DENIES PAIN OR NEEDS AT THIS TIME, FALL PRECAUTIONS IN PLACE, CL IN REACH, WILL MONITOR
--- NOTE | 2016-05-15 21:50 | NUR ---
MEDS GIVEN PER MAR, JACOBY WELL, IN ROOM, BOTH DENY NEEDS, CL IN REACH
[2016-05-15 21:58] VITALS: BP 126/62
--- NOTE | 2016-05-15 23:50 | NUR ---
ZOFRAN GIVEN FOR C/O NAUSEA WITH NO EMESIS, JACOBY WELL, AT BEDSIDE, CL IN REACH
[2016-05-16 05:00] VITALS: BP 124/68
[2016-05-16 05:12] LABS: ANION GAP 12.4 mmol/L (8-16); CALCIUM 9.1 mg/dL (8.5-10.1); CARBON DIOXIDE 28.7 mmol/L (21.0-32.0); CREATININE - SERUM 1.1 mg/dL (0.6-1.3); MAGNESIUM - SERUM 1.8 mg/dL (1.8-2.4); POTASSIUM - SERUM 4.1 mmol/L (3.5-5.1)
--- NOTE | 2016-05-16 07:00 | NUR ---
REPORT RECIEVED ASSUMED CARE. PATIENT IN BED WITH IV INTACT. NO COMPLAINTS. CALL LIGHT WITHIN REACH.
--- NOTE | 2016-05-16 08:45 | NUR ---
PATIENT IN CHAIR WITH NO COMPLAINTS AT THIS TIME. IV INTACT. CALL LIGHT WITHIN REACH. COLOSTOMY CDI. FAMILY AT BEDSIDE.
[2016-05-16 09:01] VITALS: BP 113/63
[2016-05-16 12:06] VITALS: BP 125/71
[2016-05-16 16:26] VITALS: BP 124/61
--- NOTE | 2016-05-16 18:45 | NUR ---
PATIENT SITTING UP IN BED AWAITING DC FROM DR. TANNER. IV INTACT. NO COMPLAINTS. FAMILY AT BEDSIDE. CALL LIGHT WITHIN REACH.
--- NOTE | 2016-05-16 19:16 | NUR ---
DR FLORES DRUMMOND. PATIENT UP AT BEDSIDE AND "READY TO GO HOME". STATES THAT WILL ONLY NEED A FEW PAIN PILLS FOR MODERATE PAIN IF NECESSARY, BUT WOULD PREFER TO TREAT MILD PAIN WTIH PLAIN TYLENOL.
--- NOTE | 2016-05-29 09:18 | DS ---
PATIENT:LE WOODARD JR :45 MEDICAL RECORD: [id number] DISCHARGE SUMMARY ADMISSION DATE: 04/26/16 DISCHARGE DATE: 05/16/16 DATE OF ADMISSION: 04/26/2016 DATE OF DISCHARGE: 05/16/2016 ADMITTING PHYSICIAN: Rocio Massey MD. ADMISSION DIAGNOSIS: Rectal cancer. DISCHARGE DIAGNOSES: 1. Rectal cancer status post low anterior resection. 2. Pneumonia. 3. Postoperative anemia. 4. Atrial fibrillation. 5. Prolonged postoperative ileus. HOSPITAL COURSE: Mr. Christensen is a 70-year-old male, who was admitted to the hospital for an elective low anterior resection. The patient had been diagnosed with rectal cancer and received neoadjuvant chemoradiation. The patient underwent laparoscopic low anterior resection, which he tolerated well. There was an injury to the left ureter that was repaired during the course of the operation as well as a diverting ileostomy performed. The patient tolerated the procedure well. Postoperatively, he was transferred to the floor in stable condition. The patient's postoperative course was complicated by postoperative anemia, prolonged post-procedural ileus, acute kidney failure, hypernatremia and atrial fibrillation. Postoperatively when the patient had return of bowel function, he was started on a clear liquid diet. Shortly thereafter, the patient developed severe abdominal distention, nausea and vomiting. Imaging was consistent with a postoperative bowel obstruction versus ileus. The patient had an upper GI and small bowel follow through performed which showed no obstruction as well as a CT abdomen and pelvis, which showed no obstruction, but persistently dilated loops of bowel with air-fluid levels. The patient was eventually started on total parenteral nutrition ____ serial abdominal exams and physical therapy. When the patient had eventual resolution of his ileus, he was started back on a clear liquid diet and advanced as regular throughout his hospitalization. He was seen by physical therapy, wound care and ostomy nurse and cardiology for the AFib. At the time of discharge, the patient was tolerating regular diet with normal ostomy function. He was ambulating independently. A Harrison was then placed for urinary retention. DISCHARGE DIET: As tolerated, no restrictions. We will leave Harrison in place for 1-2 weeks and to be evaluated in his postoperative visit. DISCHARGE ACTIVITY: As tolerated. Home health has been consulted for home health PT and ostomy care as well as Harrison care. WOUND CARE: The patient may shower, soap and water to the wound daily. DISCHARGE SUMMARY REPORT [id number] LE WOODARD JR DISCHARGE FOLLOWUP: Follow up with Dr. Massey in 1 week. Follow up with line service attendant in 1 week. Follow up with primary care doctor in 2-4 weeks. We will arrange for outpatient up with urologist. TRANSINT:[id number] Voice Confirmation ID: [id number] DOCUMENT ID: [id number] ROCIO MASSEY MD at 0918 CC: [id number] DICTATION DATE: 05/28/16 1402 TRADER: 05/29/16 0206 DIS IN 05/16/16 [id number] [place] [address]
[2016-07-09] MEDS ORDERED: KEFLEX500 MG PO (09:57)
== END 2016-05-16 22:07 | disposition home or self-care (01) | DRG 329 ==
LOC: D.SDCHOLD 05:25 → D.ICU 05:25 → D.MS 05:25 → D.SDCHOLD 10:00 → D.MS 14:38 → D.SDCHOLD 16:33 → D.ICU 16:42 → D.MS 04-29 13:18 → D.ICU 05-09 15:58 → D.MS 05-10 16:45
PROVIDERS: Anesthesiology; Internal Medicine Pulmonary Disease; ADMIT Surgery
DX: C20 Malignant neoplasm of rectum (principal); J18.9 Pneumonia, unspecified organism; D62 Acute posthemorrhagic anemia; J98.11 Atelectasis; S37.19XA Other injury of ureter, initial encounter; K91.3 Postprocedural intestinal obstruction; E87.0 Hyperosmolality and hypernatremia; N17.9 Acute kidney failure, unspecified; I48.91 Unspecified atrial fibrillation; I95.81 Postprocedural hypotension; Y83.9 Surgical procedure, unspecified as the cause of abnormal reaction of the patient, or of later complication, without mention of misadventure at the time of the procedure; M10.9 Gout, unspecified; Z86.73 Personal history of transient ischemic attack (TIA), and cerebral infarction without residual deficits; I07.1 Rheumatic tricuspid insufficiency; E86.0 Dehydration; J32.9 Chronic sinusitis, unspecified

== ENCOUNTER 2016-05-30 14:13 | Inpatient (IN) | payer MEDICARE, BC ==
[~2016-05-30] VITALS: Ht 182.9 cm; Wt 91.2 kg
[~2016-05-30 14:13] MED LIST changes: +ELIQUIS2.5 MG PO; +FLOMAX0.4 MG PO; +FLORAJEN3 CAPS460 MG PO; +ULTRAM50 MG PO; +ZOFRAN ODT4 MG/UDTAB PO
[2016-05-30] MEDS ORDERED: LISINOPRIL5 MG PO (15:57)
[2016-05-30 16:05] VITALS: BP 99/61; BMI 27.3
[2016-05-30 17:58] LABS: APTT 30.5 SECONDS (22.8-39.4)
[2016-05-30 18:01] LABS: INR 1.27 (0.85-1.17); PROTIME 15.8 SECONDS (11.6-15.0)
[2016-05-30 18:02] LABS: BASOPHILS 0.1 % (0.0-2.0); EOSINOPHILS 0 % (0-7); HEMATOCRIT 34.2 % (42.0-54.0); HEMOGLOBIN 11.4 g/dL (13.5-17.5); IMMATURE GRANULOCYTES 0.6 % (0-5); LYMPHOCYTES 2.4 % (15-50); MCH 30.7 pg (26.0-34.0); MCHC 33.3 g/dL (31.0-37.0); MCV 92.2 fL (80.0-100.0); MEAN PLATELET VOLUME 10.6 fL (7.4-10.4); MONOCYTES 6.4 % (2-11); NEUTROPHILS 90.5 % (40-80); PLATELET COUNT 132 10x3/uL (130-400); RBC 3.71 10x6/uL (4.20-6.10); WBC 14.5 10x3/uL (4.8-10.8)
[2016-05-30 18:03] LABS: ANION GAP 15.9 mmol/L (8-16); BILIRUBIN - TOTAL 1.21 mg/dL (0.2-1.3); CALCIUM 9.4 mg/dL (8.5-10.1); CARBON DIOXIDE 21.2 mmol/L (21.0-32.0); PROTEIN - SERUM 7.7 g/dL (6.4-8.2)
[2016-05-30 18:10] LABS: POTASSIUM - SERUM 6.1 mmol/L (3.5-5.1)
--- NOTE | 2016-05-30 19:18 | NUR ---
NOTIFIED DR. DANIELS OF PATIENT K+. NEW ORDERS GIVEN AND CARRIED OUT.
--- NOTE | 2016-05-30 19:40 | NUR ---
RECIEVED SHIFT REPORT. PT IS LYING IN BED. ALERT AND ORIENTED AND ABLE TO VERBALIZE NEEDS. PERIPHERAL IV PATENT AND FLUIDS ARE RUNNING PER ORDER. PORT PATENT AND SALINE LOC AT THIS TIME. MCGEE IS DRAINING URINE BY GRAVITY. ILLEOSTOMY PATENT AND DRAINING. SCD'S ON. PT STATES HE HAS BEEN WORKING WITH PHYSICAL THERAPY. PT IS ABLE TO TURN SELF IN BED FOR COMFORT AND SKIN CARE. PT STATES PAIN IS 5/10. NO NEEDS ARE VERBALIZED AT THIS TIME. WILL CONTINUE TO MONITOR. SIDE RAILS ARE UP X 2. BED IS IN LOWEST POSITION. CALL LIGHT IS WITHIN REACH.
--- NOTE | 2016-05-30 20:53 | NUR ---
SHIFT ASSESSMENT COMPLETED. MEDS GIVEN PER ORDER WITH NO PROBLEMS. NO NEEDS ARE VOICED. WILL MONITOR. SIDE RAILS X 2. BED LOW. CALL LIGHT IN REACH.
[2016-05-30 23:13] VITALS: BP 111/60
[2016-05-31 04:00] VITALS: BP 104/60
[2016-05-31 05:34] LABS: BASOPHILS 0.1 % (0.0-2.0); EOSINOPHILS 0 % (0-7); HEMATOCRIT 33.7 % (42.0-54.0); HEMOGLOBIN 11.5 g/dL (13.5-17.5); IMMATURE GRANULOCYTES 0.3 % (0-5); LYMPHOCYTES 4.1 % (15-50); MCH 31.9 pg (26.0-34.0); MCHC 34.1 g/dL (31.0-37.0); MCV 93.6 fL (80.0-100.0); MEAN PLATELET VOLUME 11.1 fL (7.4-10.4); NEUTROPHILS 92.5 % (40-80); PLATELET COUNT 118 10x3/uL (130-400); RDW 13.2 % (11.5-14.5); WBC 14.5 10x3/uL (4.8-10.8)
[2016-05-31 05:57] LABS: ALBUMIN 2.7 g/dL (3.4-5.0); ANION GAP 20.9 mmol/L (8-16); BILIRUBIN - TOTAL 0.99 mg/dL (0.2-1.3); CALCIUM 9.4 mg/dL (8.5-10.1); CREATININE - SERUM 4.3 mg/dL (0.6-1.3); PHOSPHOROUS 4.3 mg/dL (2.5-4.9); POTASSIUM - SERUM 5.9 mmol/L (3.5-5.1); PROTEIN - SERUM 7.5 g/dL (6.4-8.2); VANCOMYCIN - PEAK 18.8 ug/mL (18.0-26.0)
--- NOTE | 2016-05-31 08:20 | NUR ---
AWAKE AND ALERT. ORIENTED X3. TEMP AT 102. GIVEN 500MG TYLENOL PO. WILL MONITOR. LUNGS ARE CLEAR BILATERALLY BUT DIMINISHED IN B LOWER LOBES. NO COUGH NOTED. SKIN IS INTACT WITHOUT REDNESS. COLOSTOMY PATENT WITH DARK BROWN LIQUID STOOL. MCGEE PATENT WITH CLOUDY TEA COLORED URINE. LEFT PORT PATENT WITHOUT REDNESS AT INSERTION SITE. SCD'S IN PLACE. DENIES NEEDS.
[2016-05-31 08:37] VITALS: BP 92/57
--- NOTE | 2016-05-31 10:55 | NUR ---
TEMP DOWN TO 97.2 TEMPORAL
[2016-05-31 11:18] LABS: APPEARANCE CLOUDY (CLEAR); BACTERIA MODERATE /hpf (NONE SEEN); BILIRUBIN NEGATIVE (NEGATIVE); COLOR YELLOW (YELLOW); EPITHELIAL CELLS NSEEN /hpf (0-5); GLUCOSE NEGATIVE (NEGATIVE); KETONE NEGATIVE (NEGATIVE); LEUKOCYTE ESTERASE 2+ (NEGATIVE); MUCUS <1+ /lpf (NONE SEEN); NITRITE POSITIVE (NEGATIVE); PROTEIN 2+ mg/dL (NEGATIVE); SPECIFIC GRAVITY 1.005 (1.005-1.020); UROBILINOGEN NORMAL (NORMAL)
[2016-05-31 12:12] VITALS: BP 92/52
--- NOTE | 2016-05-31 12:59 | NUR ---
C/O NAUSEA BUT NO EMESIS. GIVEN 8MG ZOFRAN SLOW IVP FOR SAME. WILL MONITOR.
--- NOTE | 2016-05-31 14:20 | NUR ---
OLD MCGEE D/C WITH TIP INTACT WITHOUT DIFFICULTY. NEW 17F PLACED USING STERILE TECHNIQUE. ENTIRE CONTENTS OF KIT UTILIZED. SPECIMEN SENT TO LAB.
[2016-05-31 14:46] LABS: APPEARANCE HAZY (CLEAR); COLOR YELLOW (YELLOW); SPECIFIC GRAVITY 1.015 (1.005-1.020)
[2016-05-31 14:47] LABS: BILIRUBIN NEGATIVE (NEGATIVE); GLUCOSE NEGATIVE (NEGATIVE); KETONE NEGATIVE (NEGATIVE); LEUKOCYTE ESTERASE 2+ (NEGATIVE); NITRITE NEGATIVE (NEGATIVE); PROTEIN TRACE mg/dL (NEGATIVE); UROBILINOGEN NORMAL (NORMAL)
[2016-05-31 14:48] LABS: WHITE CELLS - URINE >50 /hpf (0-5)
[2016-05-31 14:49] LABS: BACTERIA MODERATE /hpf (NONE SEEN)
[2016-05-31 15:14] VITALS: Ht 182.9 cm; Wt 91.2 kg
[2016-05-31 15:42] LABS: ANION GAP 17.9 mmol/L (8-16); CALCIUM 8.5 mg/dL (8.5-10.1); CARBON DIOXIDE 23.1 mmol/L (21.0-32.0)
[2016-05-31 16:58] VITALS: BP 123/73
--- NOTE | 2016-05-31 18:49 | NUR ---
TEMP UP TO 102.4. GIVEN 500MG TYLENOL PO FOR SAME. WILL MONITOR. ATE ONLY A COUPLE OF BITES OF CL SUPPER. NO C/O AT THIS TIME. AT BEDSIDE.
--- NOTE | 2016-05-31 19:15 | NUR ---
RECIEVED SHIFT REPORT. PT IS LYING IN BED. ALERT AND ORIENTED AND ABLE TO VERBALIZE NEEDS. IV IS PATENT AND FLUIDS ARE RUNNING PER ORDER. PT IS AMBULATORY WITH ASSISTANCE. ILLEOSTOMY TO RIGHT SIDE PATENT. MCGEE IS DRAINING URINE BY GRAVITY. SCD'S ON. PT STATES PAIN IS 2/10. NO NEEDS ARE VERBALIZED AT THIS TIME. WILL CONTINUE TO MONITOR. SIDE RAILS ARE UP X 2. BED IS IN LOWEST POSITION. CALL LIGHT IS WITHIN REACH.
[2016-05-31 20:00] VITALS: BP 94/54
--- NOTE | 2016-05-31 21:32 | NUR ---
SHIFT ASSESSMENT COMPLETED. NIGHT MEDS GIVEN WITH NO PROBLEMS. NO NEEDS ARE VOICED. WILL MONITOR. SIDE RAILS X 2. BED LOW. CALL LIGHT IN REACH.
[2016-06-01] VITALS (21 sets, daily range): BP systolic 98–141; BP diastolic 57–77
[2016-06-01 05:41] LABS: CALCIUM 8.6 mg/dL (8.5-10.1); CREATININE - SERUM 3.6 mg/dL (0.6-1.3); POTASSIUM - SERUM 4.4 mmol/L (3.5-5.1)
[2016-06-01 05:46] LABS: CARBON DIOXIDE 29.4 mmol/L (21.0-32.0); PHOSPHOROUS 3.2 mg/dL (2.5-4.9)
[2016-06-01 05:47] LABS: BASOPHILS 0 % (0.0-2.0); EOSINOPHILS 0.5 % (0-7); HEMATOCRIT 27.6 % (42.0-54.0); IMMATURE GRANULOCYTES 0.3 % (0-5); LYMPHOCYTES 3.3 % (15-50); MCH 30.2 pg (26.0-34.0); MCHC 32.6 g/dL (31.0-37.0); MCV 92.6 fL (80.0-100.0); MEAN PLATELET VOLUME 11.3 fL (7.4-10.4); MONOCYTES 6.7 % (2-11); NEUTROPHILS 89.2 % (40-80); RBC 2.98 10x6/uL (4.20-6.10)
[2016-06-01 05:53] LABS: PLATELET COUNT 86 10x3/uL (130-400)
[2016-06-01 07:39] LABS: PLATELET ESTIMATE DECREASED
--- NOTE | 2016-06-01 08:25 | NUR ---
AWAKE AND ALERT. ORIENTED X3. NO C/O AT THIS TIME. LUNGS ARE CLEAR BILATERALLY, NO COUGH NOTED. SKIN IS INTACT WITHOUT REDNESS EXCEPT SOME REDNESS IN ELVIN AREA WHICH LOOKS YEASTY. WILL MONITOR. LEFT PORT PATENT WITHOUT REDNESS AT INSERTION SITE. MCGEE PATENT WITH TEA COLORED URINE. ILEOSTOMY WITH DARK GREEN OUTPUT ALL LIQUID. ATTEMPTED TO START ON CT CONTRAST AND WAS NAUSEATED. GIVEN 8 MG ZOFRAN SLOW IVP FOR SAME. WILL MONITOR.
--- NOTE | 2016-06-01 12:10 | NUR ---
FIRST UNIT PRBC UP AT THIS TIME. VSS.
--- NOTE | 2016-06-01 12:25 | NUR ---
FIRST UNIT PRBC CONTINUES WITHOUT COMPLICATIONS. VSS.
--- NOTE | 2016-06-01 13:11 | NUR ---
Patient Name: LE WOODARD Admission Status: Elective Accout number: [id number] Admission Date: 05-30-2016 : 1945 Admission Diagnosis: Attending: MAKI Current LOS: 2 Anticipated DC Date: 06-04-2016 Planned Disposition: Home with Home Health Primary Insurance: MEDICARE A & B Discharge Planning Comments: CM MET WITH PATIENT REGARDING D/C NEEDS AND PLANS. PATIENT STATED HE LIVES WITH HIS AND SHE WILL DRIVE HIM HOME AT DISCHARGE. PATIENT STATED HE HAS 3 STEPS W/O RAILS TO ENTER HOME AND NO STAIRS INSIDE. PATIENT STATED HE IS INDEPENDENT WITH HIS CARE AND DOES NOT HAVE ANY DME AT HOME. PATIENT DOES HAVE A BUILT IN SHOWER CHAIR. PATIENTS PCP IS DR. CHANDRA IN [place] AND PHARMACY IS [facility]. PATIENT IS CURRENT WITH [facility]. CM WILL CONTINUE TO FOLLOW PATIENT WITH D/C NEEDS AND PLANS. PCP DR. CHANDRA [facility]- [phone] [facility]- [phone] [facility] () [phone] Corporate Manager: Luma Canela Is the patient Alert and Oriented? Yes 0 * How many steps to enter\exit or inside your home? 3 W/O RAIL 0 * PCP DR. CHANDRA ([place]) 0 * Pharmacy [facility] 0 * Preadmission Environment Home with Family 0 * ADLs Independent 0 * Other Equipment BUILT IN SHOWER CHAIR 0 * List name and contact numbers for known caregivers / representatives who currently or will assist patient after discharge: [facility] [phone] 0 * Community resources currently utilized Home Health 0 * Please name any agencies selected above. CURRENT [facility] 0 * Additional services required to return to the preadmission environment? Yes 0 * Can the patient safely return to the preadmission environment? Yes 0 * Has this patient been hospitalized within the prior 30 days at any hospital? Yes 0 Grand Total: 0
--- NOTE | 2016-06-01 13:35 | NUR ---
TRANSFUSION CONTINUES WITHOUT ANY REACTIONS. VSS.
--- NOTE | 2016-06-01 14:20 | NUR ---
FIRST UNIT COMPLETED WITHOUT REACTIONS. VSS.
--- NOTE | 2016-06-01 15:15 | NUR ---
SECOND UNIT OF PRBC UP AT THIS TIME. VSS.
--- NOTE | 2016-06-01 15:30 | NUR ---
TRANSFUSION CONTINUES WITHOUT COMPLICATIONS. VSS.
--- NOTE | 2016-06-01 16:30 | NUR ---
TRANSFUSION CONTINUES WITHOUT REACTIONS. VSS. FSBS 181. GIVEN 2 UNITS REGUALR INSULIN SUBQ.
--- NOTE | 2016-06-01 17:45 | NUR ---
TRANSFUSION CONTINUES WITHOUT COMPLICATIONS. VSS. BERTRAND SERVED IN ROOM. HAVING SOME NAUSEA. REQUESTED AND GIVEN 8MG ZOFRAN SLOW IVP FOR SAME. WILL MONITOR.
--- NOTE | 2016-06-01 19:40 | NUR ---
RECIEVED SHIFT REPORT. PT IS LYING IN BED. ALERT AND ORIENTED AND ABLE TO VERBALIZE NEEDS. IV IS PATENT AND FLUIDS ARE RUNNING PER ORDER. MCGEE IS DRAINING URINE BY GRAVITY. ILEOSTOMY INTACT AND DRAINING. PT IS AMBULATORY WITH ASSISTANCE. SCD'S ON. PT STATES PAIN IS 3/10. NO NEEDS ARE VERBALIZED AT THIS TIME. AT BEDSIDE. WILL CONTINUE TO MONITOR. SIDE RAILS ARE UP X 2. BED IS IN LOWEST POSITION. CALL LIGHT IS WITHIN REACH.
--- NOTE | 2016-06-01 20:57 | NUR ---
SHIFT ASSESSMENT COMPLETED. NIGHT MEDS GIVEN WITH NO PROBLEMS. PT C/O PAIN 05/28. ADMNISTERED PRESCRIBED PRN TYLENOL PER ORDER. PT RECIEVED NO INSULIN PER SLIDING SCALE FOR ABOY=177. NO NEEDS ARE VOICED. AT BEDSIDE. WILL MONITOR. SIDE RAILS X 2. BED LOW. CALL LIGHT IN REACH.
[2016-06-02] VITALS (7 sets, daily range): BP systolic 118–145; BP diastolic 68–78
--- NOTE | 2016-06-02 07:00 | NUR ---
REPORT RECIEVED ASSUMED CARE. PATIENT IN BED WITH IV INTACT. NO COMPLAINTS AT THIS TIME. CALL LIGHT WITHIN REACH.
[2016-06-02 07:02] LABS: ANION GAP 11.7 mmol/L (8-16); CALCIUM 8.6 mg/dL (8.5-10.1); CARBON DIOXIDE 28.5 mmol/L (21.0-32.0); CREATININE - SERUM 2.7 mg/dL (0.6-1.3); PHOSPHOROUS 2.9 mg/dL (2.5-4.9); POTASSIUM - SERUM 4.2 mmol/L (3.5-5.1)
[2016-06-02 07:04] LABS: BASOPHILS 0.2 % (0.0-2.0); EOSINOPHILS 2.6 % (0-7); HEMATOCRIT 32.2 % (42.0-54.0); HEMOGLOBIN 10.5 g/dL (13.5-17.5); IMMATURE GRANULOCYTES 0.6 % (0-5); LYMPHOCYTES 6.5 % (15-50); MCHC 32.6 g/dL (31.0-37.0); MEAN PLATELET VOLUME 11.3 fL (7.4-10.4); MONOCYTES 10.9 % (2-11); NEUTROPHILS 79.2 % (40-80); PLATELET COUNT 89 10x3/uL (130-400); RDW 14.2 % (11.5-14.5); WBC 5.4 10x3/uL (4.8-10.8)
--- NOTE | 2016-06-02 08:00 | NUR ---
SPOKE WITH DR. HERNANDEZ. STATED TO REMOVE MCGEE IF PATIENT READY TODAY IF PATIENT GETS UP AND IS ABLE TO MOVE AROUND OK. VERBALIZED UNDERSTANDING.
--- NOTE | 2016-06-02 14:19 | NUR ---
NUTRITION MONITORING & EVAL CHART REVIEWED. PT VISIT. CONTINUES FULL LIQUID DIET. POOR PO INTAKE. PT REPORTS SOME NAUSEA, STATES HE IS TAKING ONLY SMALL AMTS PO AT A TIME. WILL CONTINUE TO MONITOR DIET ADVANCEMENT, PO INTAKE. RD FOLLOWING
--- NOTE | 2016-06-02 17:40 | NUR ---
CLAMPED PATIENTS MCGEE AT THIS TIME. EXPLAINED TO CALL WHEN FELT THE URGE TO VOID. VERBALIZED UNDERSTANDING. CALL LIGHT WITHIN REACH.
--- NOTE | 2016-06-02 18:45 | NUR ---
PATIENT IN BED WITH IV AND MCGEE INTACT. STATED HE DOESNT FEEL THE URGE TO VOID YET. EXPLAINED I WOULD LEAVE IT CLAMPED A LITTLE LONGER. VERBALIZED UNDERSTANDING. CALL LIGHT WITHIN REACH.
--- NOTE | 2016-06-02 20:29 | NUR ---
AWAKE,ALERT,NO COMPLAINTS VOICED. IV INFUSING TO LEFT PORT WIHTOUT REDNESS OR EDEMA NOTED. MCGEE PATENT AND DRAINING CLEAR YELLOW URINE. CL IN REACH.
--- NOTE | 2016-06-03 04:37 | NUR ---
PATIENT RESTING IN SEMI-FOWLERS POSITION WITH EYES CLOSED. NO VISIBLE SIGNS OF DISTRESS. BED IN LOWEST POSITION AND CALL LIGHT WITHIN REACH.
[2016-06-03 05:38] LABS: ANION GAP 11.5 mmol/L (8-16); CALCIUM 7.9 mg/dL (8.5-10.1); CARBON DIOXIDE 27.2 mmol/L (21.0-32.0); CREATININE - SERUM 2.2 mg/dL (0.6-1.3); PHOSPHOROUS 2.7 mg/dL (2.5-4.9); POTASSIUM - SERUM 3.7 mmol/L (3.5-5.1)
[2016-06-03 05:51] LABS: BASOPHILS 0 % (0.0-2.0); EOSINOPHILS 1.4 % (0-7); HEMATOCRIT 32.2 % (42.0-54.0); HEMOGLOBIN 10.5 g/dL (13.5-17.5); IMMATURE GRANULOCYTES 0.9 % (0-5); LYMPHOCYTES 7.4 % (15-50); MCH 30.2 pg (26.0-34.0); MCHC 32.6 g/dL (31.0-37.0); MCV 92.5 fL (80.0-100.0); MEAN PLATELET VOLUME 11.1 fL (7.4-10.4); MONOCYTES 12.7 % (2-11); NEUTROPHILS 77.6 % (40-80); PLATELET COUNT 91 10x3/uL (130-400); RBC 3.48 10x6/uL (4.20-6.10); RDW 14.2 % (11.5-14.5); WBC 5.7 10x3/uL (4.8-10.8)
--- NOTE | 2016-06-03 06:16 | NUR ---
NO CHANGE IN ASSESSMENT. CL IN REACH
--- NOTE | 2016-06-03 07:00 | NUR ---
REPORT RECIEVED ASSUMED CARE. PATIENT IN BED WITH IV INTACT. NO COMPLAINTS. BSCDS ON. CALL LIGHT WITHIN REACH.
[2016-06-03 08:41] VITALS: BP 143/82
[2016-06-03 11:42] VITALS: BP 138/84
[2016-06-03 15:34] VITALS: BP 126/78
--- NOTE | 2016-06-03 19:20 | NUR ---
PATIENT ILEOSTOMY CHANGED AT THIS TIME DUE TO LEAKING. MCGEE REMOVED ALSO AT THIS TIME. PATIENT TOLERATED WITH SMALL AMOUNT OF PAIN. EXPLAINED TO VOID IN THE URINAL. VERBALIZED UNDERSTANDING. IV INTACT. NO COMPLAINTS. CALL LIGHT WITHIN REACH.
--- NOTE | 2016-06-03 20:06 | NUR ---
EMPTIED 250 ML OUT OF THE PATIENT'S OSTOMY BAG. PATIENT'S IS AT BEDSIDE AND THE PATIENT DENIES OTHER NEEDS AT THIS TIME. BED IN LOWEST POSITION AND CALL LIGHT WITHIN REACH. ENCOURAGED PATIENT TO CALL IF HE HAS FURTHER NEEDS.
--- NOTE | 2016-06-03 20:10 | NUR ---
AWAKE WIHTOUT COMPLIANTS. IV INFUSING TO LEFT PORT WIHTOUT REDNESS OR EDEMA NOTED. VOIDING PER URINAL WIHTOUT DISCOMFORT. CL IN REACH.
[2016-06-03 21:54] VITALS: BP 125/77
--- NOTE | 2016-06-04 02:30 | NUR ---
AWAKE WATCHING TV WIHT NO COMPLIANTS. CL IN REACH.
--- NOTE | 2016-06-04 03:00 | NUR ---
RN NOTE: PT SLEEPING IN SEMI SORENSEN'S POSITION WITH EASY RESPIRATIONS. LEFT PORT ACCESSED WITH D5 NS INSUING AT 30 ML / HR. WILL CONTINUE TO MONITOR CLOSELY FOR NEEDS.
[2016-06-04 06:11] LABS: BASOPHILS 0.2 % (0.0-2.0); EOSINOPHILS 2.5 % (0-7); HEMATOCRIT 30.8 % (42.0-54.0); HEMOGLOBIN 9.9 g/dL (13.5-17.5); IMMATURE GRANULOCYTES 1.2 % (0-5); LYMPHOCYTES 9.5 % (15-50); MCH 29.6 pg (26.0-34.0); MCHC 32.1 g/dL (31.0-37.0); MCV 92.2 fL (80.0-100.0); MEAN PLATELET VOLUME 10.8 fL (7.4-10.4); MONOCYTES 9.7 % (2-11); NEUTROPHILS 76.9 % (40-80); PLATELET COUNT 97 10x3/uL (130-400); RBC 3.34 10x6/uL (4.20-6.10); RDW 13.9 % (11.5-14.5); WBC 6.5 10x3/uL (4.8-10.8)
[2016-06-04 06:28] LABS: ANION GAP 10.3 mmol/L (8-16); CALCIUM 8.1 mg/dL (8.5-10.1); CARBON DIOXIDE 28.2 mmol/L (21.0-32.0); MAGNESIUM - SERUM 1.6 mg/dL (1.8-2.4); POTASSIUM - SERUM 3.5 mmol/L (3.5-5.1)
--- NOTE | 2016-06-04 06:36 | NUR ---
NO CHANGE IN ASSESSMENT CL IN REACH
--- NOTE | 2016-06-04 06:41 | NUR ---
NO CHANGE IN ASSESSMENT. CL IN REACH.
--- NOTE | 2016-06-04 07:45 | NUR ---
WALKING ROUNDS,WITHOUT DISTRESS.DENIES NEEDS.CALL LIGHT IN REACH
[2016-06-04] MEDS ORDERED: LOMOTIL TABLET1 TAB PO (08:33)
[2016-06-04] MEDS ORDERED: FLOMAX0.4 MG PO (08:34)
[2016-06-04 08:44] VITALS: BP 148/78
--- NOTE | 2016-06-04 09:00 | NUR ---
ASSESSMENT PER FLOW SHEET.PT WITHOUT DISTRESS.CALL LIGHT IN REACH
--- NOTE | 2016-06-04 10:00 | NUR ---
UP TO CHAIR WITHOUT NEEDS.CALL LIGHT IN REACH
[2016-06-04 11:49] VITALS: BP 132/78
[2016-06-04 15:37] VITALS: BP 130/72
--- NOTE | 2016-06-04 19:07 | NUR ---
REMAINS WITHOUT NEEDS,WITHOUT DISTRESS.CONT PLAN OF CARE
[2016-06-04 21:45] VITALS: BP 138/75
[2016-06-04 23:00] VITALS: BP 131/77
[2016-06-05 04:00] VITALS: BP 124/72
[2016-06-05 06:56] LABS: BASOPHILS 0.1 % (0.0-2.0); EOSINOPHILS 2.7 % (0-7); HEMATOCRIT 30.5 % (42.0-54.0); HEMOGLOBIN 10.1 g/dL (13.5-17.5); IMMATURE GRANULOCYTES 2.5 % (0-5); LYMPHOCYTES 9.5 % (15-50); MCH 30.2 pg (26.0-34.0); MCHC 33.1 g/dL (31.0-37.0); MCV 91.3 fL (80.0-100.0); MONOCYTES 8.5 % (2-11); NEUTROPHILS 76.7 % (40-80); PLATELET COUNT 156 10x3/uL (130-400); RBC 3.34 10x6/uL (4.20-6.10); RDW 13.9 % (11.5-14.5); WBC 8.1 10x3/uL (4.8-10.8)
[2016-06-05 07:16] LABS: ANION GAP 11.6 mmol/L (8-16); CALCIUM 8.4 mg/dL (8.5-10.1); CARBON DIOXIDE 25.7 mmol/L (21.0-32.0); CREATININE - SERUM 1.9 mg/dL (0.6-1.3); MAGNESIUM - SERUM 1.7 mg/dL (1.8-2.4); PHOSPHOROUS 2.9 mg/dL (2.5-4.9); POTASSIUM - SERUM 3.3 mmol/L (3.5-5.1)
[2016-06-05 08:57] VITALS: BP 141/84
--- NOTE | 2016-06-05 09:00 | NUR ---
ASSESSMENT PER FLOW SHEET,PT WITHOUT DISTRESS.CALL LIGHT IN REACH
[2016-06-05 12:24] VITALS: BP 135/78
--- NOTE | 2016-06-05 12:30 | NUR ---
MEDS ORDERED FOR NAUSEA.
[2016-06-05 16:02] VITALS: BP 128/75
--- NOTE | 2016-06-05 19:42 | NUR ---
REMAINS WITHOUT NEDS,WITHOUT CHNAGE.CONT PLAN OF CARE
--- NOTE | 2016-06-05 19:46 | NUR ---
PATIENT RESTING IN BED WATCHING TV. PATIENT DENIES NEEDS AT THIS TIME. BED IN LOWEST POSITION AND CALL LIGHT WITHIN REACH. ENCOURAGED PATIENT TO CALL IF HE HAS FURTHER NEEDS.
[2016-06-05 20:00] VITALS: BP 118/68
[2016-06-06] VITALS: BP 121/71
[2016-06-06 04:00] VITALS: BP 148/78
[2016-06-06 07:53] VITALS: BP 140/72
--- NOTE | 2016-06-06 08:00 | NUR ---
WALKING ROUNDS.PT WITHOUT DISTRESS.DENIES NEEDS.CALL LIGHT IN REACH
--- NOTE | 2016-06-06 09:00 | NUR ---
ASSESSMENT PER FLOW SHEET.PT WITHOUT DISTRESS.DENIES NEEDS.CALL LIGHT IN REACH
[2016-06-06 11:10] VITALS: BP 131/75
[2016-06-06 15:56] VITALS: BP 127/70
--- NOTE | 2016-06-06 18:57 | NUR ---
REMAINS WITHUOT CHANGE FROM INITIAL ASSESSMENT.CONT PLAN OF CARE
[2016-06-06 19:00] VITALS: BP 140/73
--- NOTE | 2016-06-07 01:22 | NUR ---
REC'D PATIENT SITTING UP IN CHAIR IN ROOM. ALERT AND ORIENTED X4. DENIES PAIN @ THIS TIME. MUCUS MEMBRANES PINK AND MOIST. DENIES HEARING PROBLEMS. WEARS GLASSES. LUNGS CLEAR IN ALL LOBES. RESPIRATIONS EVEN AND UNLABORED. ABDOMEN SOFT NON TENDER TO TOUCH. HAS COLOSTOMY TO RLQ, IS DRAINING, EMPTIED WHILE IN THE ROOM. STOMA IS RED. DENIED PAIN ON UNRINATION. FULL ROM IN ALL EXTREMITIES. CAP REFILL <3 SECS. HAS INFUSAPORT TO LEFT SUBCLAVIAN, PATENT. HAS SCDS. INTRUCTED TO CALL IF NEEDED ANYTHING. PATIENT VERBALIZED UNDERSTANDING. CALL LIGHT IN REACH. BED LOW AND LOCKED.
--- NOTE | 2016-06-07 01:27 | NUR ---
PATIENT LYING IN BED RESTING COMFORTABLY. WANTED TYLENOL AND ICE WATER. ADMINISTERED MED PRESCRIBED AND PROVIDED ICE WATER. INTRUCTED TO CALL IF NEEDED ANYTHING. PATIENT VERBALIZED UNDERSTANDING. BED LOW, LOCKED, CALL LIGHT IN REACH.
--- NOTE | 2016-06-07 03:11 | NUR ---
EYES CLOSED RESPIRATIONS WITH EASE AND UNLABORED.
[2016-06-07 04:00] VITALS: BP 143/85
[2016-06-07 06:18] LABS: BASOPHILS 0.2 % (0.0-2.0); EOSINOPHILS 3.7 % (0-7); HEMATOCRIT 29.9 % (42.0-54.0); HEMOGLOBIN 9.7 g/dL (13.5-17.5); IMMATURE GRANULOCYTES 3.5 % (0-5); LYMPHOCYTES 11.3 % (15-50); MCH 29.6 pg (26.0-34.0); MCHC 32.4 g/dL (31.0-37.0); MCV 91.2 fL (80.0-100.0); MEAN PLATELET VOLUME 10.6 fL (7.4-10.4); MONOCYTES 8.1 % (2-11); NEUTROPHILS 73.2 % (40-80); RBC 3.28 10x6/uL (4.20-6.10); RDW 13.5 % (11.5-14.5)
[2016-06-07 06:26] LABS: PLATELET COUNT 216 10x3/uL (130-400)
[2016-06-07 06:40] LABS: CALCIUM 8.6 mg/dL (8.5-10.1); CARBON DIOXIDE 28.3 mmol/L (21.0-32.0); CREATININE - SERUM 1.7 mg/dL (0.6-1.3); POTASSIUM - SERUM 3.3 mmol/L (3.5-5.1)
--- NOTE | 2016-06-07 07:49 | NUR ---
PT. AOX4 RESP EVEN AND NONLABORED PT C/O NAUSEA 8MG SLOW IVP GIVEN AT THIS TIME IV TO INFUSIPORT PATENT AND FUNCTIONING PROPERLY WILL CONTINUE TO MONITOR BED AT LOWEST SETTING AND CALL LIGHT WITH IN REACH
[2016-06-07 08:14] VITALS: BP 149/78
[2016-06-07 12:07] VITALS: BP 128/68
[2016-06-07 15:29] VITALS: BP 127/71
--- NOTE | 2016-06-07 16:18 | NUR ---
06/07/2016 16:14 DCP: Discharge Planning IV Abx order rec'd. Discussed with patient - Order faxed and called to Charito with [employer]. Waiting insurance auth. Anticipate DC tomorrow once arrangements made. CM will follow.
--- NOTE | 2016-06-08 00:57 | NUR ---
REC'D PATIENT LYING SEMI FOWLERS IN BED. ALERT AND ORIENTED X4. DENIES PAIN @ THIS TIME. MUCUS MEMBRANES PINK AND MOIST. ABD SOFT NON TENDER TO TOUCH. STOMA IS RED. URINE STRAW- COLORED AND CLEAR. CAP REFILL <3 SECS. FULL ROM IN UPPER AND LOWER EXTREMITIES. DENIES FURTHER NEEDS AT THIS TIME. INTRUCTED TO CALL IF NEEDED ANYTHING. VERBALIZED UNDERSTANDING. BED LOW, LOCKED, CALL LIGHT IN REACH.
[2016-06-08 04:00] VITALS: BP 121/73
--- NOTE | 2016-06-08 04:25 | NUR ---
PATIENT RESTING IN BED COMFORTABLY. DENIES NEEDS AT THIS TIME. INSTRUCTED TO CALL IF NEEDED ANYTHING. VERBALIZED UNDERSTANDING. BED LOW, LOCKED, CALL LIGHT IN REACH.
[2016-06-08 05:11] LABS: BASOPHILS 0.1 % (0.0-2.0); EOSINOPHILS 2.3 % (0-7); HEMATOCRIT 29.9 % (42.0-54.0); HEMOGLOBIN 9.7 g/dL (13.5-17.5); IMMATURE GRANULOCYTES 2.8 % (0-5); LYMPHOCYTES 7.5 % (15-50); MCH 29.8 pg (26.0-34.0); MCHC 32.4 g/dL (31.0-37.0); MCV 91.7 fL (80.0-100.0); MEAN PLATELET VOLUME 10.2 fL (7.4-10.4); MONOCYTES 7.3 % (2-11); PLATELET COUNT 240 10x3/uL (130-400); RBC 3.26 10x6/uL (4.20-6.10); RDW 13.6 % (11.5-14.5); WBC 6.8 10x3/uL (4.8-10.8)
[2016-06-08 05:22] LABS: ANION GAP 10.7 mmol/L (8-16); CALCIUM 8.5 mg/dL (8.5-10.1); CARBON DIOXIDE 28.9 mmol/L (21.0-32.0); CREATININE - SERUM 1.6 mg/dL (0.6-1.3); POTASSIUM - SERUM 3.6 mmol/L (3.5-5.1)
[2016-06-08 07:58] VITALS: BP 138/77
--- NOTE | 2016-06-08 07:59 | NUR ---
PT AOX4 RESP EVEN AND NONLABORED PT DENIES NEEDS AT THIS TIME INFUSIPORT ACCESS PATENT AND INTACT. PT EMPTIED HIS OWN COLOSTOMY BAG WITHOUT DIFFICULTY AT THIS TIME BED AT LOWEST SETTING AND CALL LIGHT WITHIN REACH WILL CONTINUE TO MONITOR
--- NOTE | 2016-06-08 10:33 | NUR ---
06/08/2016 10:27 DCP: Discharge Planning Rec'd call from Charito with [facility]. Patient's out of pocket cost is $367 for the course of treatment with stop date 06/15. Notified patient. Patient will dc home after 1400 abx. [facility] with set patient up at home this evening for 2200 dose. Answered patient questions and concerns.
[2016-06-08] MEDS ORDERED: ANCEF/KEFZOL INJ1 GM IM (10:54)
--- NOTE | 2016-06-08 15:06 | NUR ---
NUTRITION MONITORING & EVAL SPOKE WITH PT AND FAMILY RE:INCREASING CALORIES IN DIET AFTER DC. PROVIDED TIPS AND REC'S. PT VOICED UNDERSTANDING. RD FOLLOWING
--- NOTE | 2016-06-08 17:00 | NUR ---
PT. AOX4 RESP EVEN AND NONLABORED IV TO LEFT CHEST WALL FLUSHED PATENT AND INTACT PT. DISCHARGED VIA WHEELCHAIR VIA PRIVATE VEHICLE
--- NOTE | 2016-06-08 18:12 | NUR ---
PT. IV PORT FLUSHED WITH SALINE. PT. DENIES NEEDS AT THIS TIME. PT. DISCHARGED OUT OF THE FACILITY VIA WHEELCHAIR VIA PRIVATE VEHICLE
[2016-07-09] MEDS ORDERED: KEFLEX500 MG PO (09:57)
== END 2016-06-08 17:40 | disposition home health service (06) | DRG 683 ==
LOC: D.MS 14:13
PROVIDERS: Internal Medicine; Internal Medicine Medical Oncology; Internal Medicine Nephrology; Student in an Organized Health Care Education/Training Program; ADMIT Internal Medicine Hematology & Oncology
PROC: 0T9B70Z Drainage of Bladder with Drainage Device, Via Natural or Artificial Opening (ICD-10-PCS; principal; 2016-05-31)
DX: N17.0 Acute kidney failure with tubular necrosis (principal); C19 Malignant neoplasm of rectosigmoid junction; N12 Tubulo-interstitial nephritis, not specified as acute or chronic; Z93.2 Ileostomy status; E87.5 Hyperkalemia; I48.91 Unspecified atrial fibrillation; M10.9 Gout, unspecified; I69.398 Other sequelae of cerebral infarction; R20.0 Anesthesia of skin; E86.0 Dehydration

== ENCOUNTER → 2016-06-22 10:49 | Outpatient (CLI) | payer MEDICARE, BC ==
[~2016-06-22 10:49] MED LIST changes: +ANCEF/KEFZOL INJ1 GM IM; +BACTRIM DS TABL1 TAB PO; +KEFLEX500 MG PO; +LISINOPRIL5 MG PO; +LOMOTIL TABLET1 TAB PO; +MEGACE400 MG/10 PO
[2016-06-22 11:31] LABS: BASOPHILS 0.2 % (0.0-2.0); EOSINOPHILS 1.5 % (0-7); HEMATOCRIT 35.3 % (42.0-54.0); HEMOGLOBIN 11.3 g/dL (13.5-17.5); IMMATURE GRANULOCYTES 0.9 % (0-5); LYMPHOCYTES 17.9 % (15-50); MCH 29.2 pg (26.0-34.0); MCV 91.2 fL (80.0-100.0); MONOCYTES 9.7 % (2-11); NEUTROPHILS 69.8 % (40-80); PLATELET COUNT 255 10x3/uL (130-400); RBC 3.87 10x6/uL (4.20-6.10); RDW 13.8 % (11.5-14.5); WBC 5.9 10x3/uL (4.8-10.8)
[2016-06-22 11:56] LABS: ANION GAP 13.1 mmol/L (8-16); CALCIUM 10.3 mg/dL (8.5-10.1); CARBON DIOXIDE 26.5 mmol/L (21.0-32.0); CREATININE - SERUM 2.3 mg/dL (0.6-1.3); POTASSIUM - SERUM 4.6 mmol/L (3.5-5.1); PRE-ALBUMIN 37.3 mg/dL (18.0-35.7)
== END | disposition home or self-care (01) ==
LOC: D.LAB 10:49
PROVIDERS: Surgery
DX: N12 Tubulo-interstitial nephritis, not specified as acute or chronic (principal); C20 Malignant neoplasm of rectum

== ENCOUNTER → 2016-06-23 19:00 | Outpatient (CLI) | payer MEDICARE, BC ==
[2016-05-31 15:14] VITALS: BMI 27.2
== END | disposition home or self-care (01) ==
LOC: D.LABREF 19:00
DX: S37.10XA Unspecified injury of ureter, initial encounter (principal); X58.XXXA Exposure to other specified factors, initial encounter; Y93.89 Activity, other specified; Y92.89 Other specified places as the place of occurrence of the external cause

== ENCOUNTER 2016-07-12 07:11 | Inpatient (IN) | payer MEDICARE, BC ==
[2016-07-09 10:47] LABS: BASOPHILS 0.2 % (0-2); HEMOGLOBIN 10.5 g/dL (13.5-17.5); IMMATURE GRANULOCYTES 0.9 % (0-5); LYMPHOCYTES 19.3 % (15-50); MCH 29.1 pg (26.0-34.0); MCHC 32.8 g/dL (31.0-37.0); MCV 88.6 fL (80.0-100.0); MEAN PLATELET VOLUME 9.6 fL (7.4-10.4); MONOCYTES 9.8 % (2-11); NEUTROPHILS 67.8 % (40-80); PLATELET COUNT 237 10x3/uL (130-400); RBC 3.61 10x6/uL (4.20-6.10); RDW 14.4 % (11.5-14.5); WBC 6.5 10x3/uL (4.8-10.8)
[2016-07-09 10:56] LABS: APTT 24.9 SECONDS (22.8-39.4); INR 1.05 (0.85-1.17); PROTIME 13.6 SECONDS (11.6-15.0)
[2016-07-09 10:58] LABS: ANION GAP 15.1 mmol/L (8-16); CALCIUM 9.6 mg/dL (8.5-10.1); CARBON DIOXIDE 24.2 mmol/L (21.0-32.0); CREATININE - SERUM 1.4 mg/dL (0.6-1.3); POTASSIUM - SERUM 4.3 mmol/L (3.5-5.1)
[~2016-07-12] VITALS: Ht 182.9 cm; Wt 88.5 kg
[~2016-07-12 07:11] MED LIST changes: -BACTRIM DS TABL1 TAB PO; -MEGACE400 MG/10 PO
[2016-07-12] MEDS ORDERED: KEFLEX500 MG PO (07:37)
[2016-07-12] MEDS ORDERED: MEGACE400 MG/10 PO (07:38)
--- NOTE | 2016-07-12 07:46 | NUR ---
0745 PATIENT STATES NO CHANGES IN HEALTH HISTORY ASSESSMENT SINCE INTERVIEWED ON 07/09/16, ILEOSTOMY BAG IN PLACE WITH GREEN THICKENED LIQUID BOWEL MOVEMENT CURRENTLY. PATIENT STATES CONSISTENCY VARIES. RANKS PAIN 2/10 BACK PAIN. Blanca SHAVER R.N.
[2016-07-12 08:25] VITALS: BP 136/74; BMI 26.3
--- NOTE | 2016-07-12 11:32 | NUR ---
[id number]: DR MASSEY PREFORMED SIGMOIDOSCOPY. [id number]: DR MASSEY ILLEOSTOMY REVERSAL 1115: PREPED PT AND DR TAVERA STARTED CYSTOSCOPY
[2016-07-12 13:01] VITALS: BP 139/77
[2016-07-12 15:21] VITALS: BP 111/69
--- NOTE | 2016-07-12 15:42 | NUR ---
PATIENT STOOD AT THE BEDSIDE AND URINATED 250CC OF DARK URINE INTO THE URINAL. IVF INFUSING PER ORDERS. DRESSING TO THE RLQ OF ABDOMEN CHANGED. IT WAS SATURATED WITH BRIGHT RED BLOOD. VSS. CALL LIGHT IS WITHIN REACH. MONITORIONG.
--- NOTE | 2016-07-12 18:54 | OP ---
PATIENT NAME: LE WOODARD JR MEDICAL RECORD: [id number] :45 LOCATION:[id number] ADMISSION DATE:07/12/16 SURGEON: ROCIO MASSEY MD DATE OF OPERATION: 07/12/2016 SURGEON: Rocio Massey M.D. PREOPERATIVE DIAGNOSES: 1. Rectal cancer. 2. History of diverting loop ileostomy. 3. Chronic kidney failure. 4. History of left ureteral injury. POSTOPERATIVE DIAGNOSES: 1. Rectal cancer. 2. History of diverting loop ileostomy. 3. Chronic kidney failure. 4. History of left ureteral injury. PROCEDURE PERFORMED: 1. Ileostomy reversal. 2. Flexible sigmoidoscopy. ANESTHESIA: General. COMPLICATIONS: None. SPECIMENS: Ileum. Case was contaminated. ESTIMATED BLOOD LOSS: 20 cc. OPERATIVE COURSE: After consent was obtained, the patient was taken to the operating room and placed in supine position on the operating table. Next, general anesthesia was given via endotracheal intubation. Thereafter, a timeout was taken to confirm the correct patient and procedure. The patient's ostomy bag was removed. The abdomen was prepped and draped in typical sterile fashion. The perineum was then prepped and draped in typical sterile fashion. Flexible sigmoidoscopy was done to confirm the continuity of the rectal anastomosis. Flexible sigmoidoscopy was done approximately 30 cm. There was no abnormality identified. The staple line was identified approximately 6-7 cm. It was well healed. There were some remaining wendy in place. At this time, the perineum was redraped. Scrubs were changed. The abdomen had been previously prepped and draped. This time 20 cc of local anesthetic was injected circumferentially around the ileostomy. An elliptical incision was made to include the ileostomy. Dissection then was performed with a combination of 1 dissection with electrocautery in the level of the external oblique fascia. The ostomy was freed from the fascial edges and the peritoneal edges circumferentially, the small bowel was extracorporealized and this time, a [id number] small bowel anastomosis was performed with a 60-mm linear cutting stapler. A common enterotomy was created and then the common enterotomy was closed with the ____ stapler. An anastomotic segment of ileum was sent to pathology. The suture line was imbricated using a 2-0 Stratafix suture. The abdomen was irrigated and suctioned. Careful attention was paid to hemostasis. The staple line was OPERATIVE REPORT [id number] LE WOODARD JR inspected. There was no evidence of bleeding. No evidence of bowel injury. No evidence of serosal injuries. Next, at this time, 10 cc of local anesthetic was injected in the external oblique fascia. The bowel was placed back into the abdomen in the right lower quadrant. The fascia was closed with a #1 looped PDS. Skin was loosely reapproximated with a single staple. Bulky gauze dressings were placed. At this time, Dr. Harrell will perform his portion of the procedure, which will be included in his operative note, which includes cystoscopy and ureteral stent removal. At the end of the case, all needle and instrument counts were correct. No complications occurred. The patient will be transported to the recovery room after completion of his cystoscopy and ureteral stent removal. TRANSINT:[id number] Voice Confirmation ID: [id number] DOCUMENT ID: [id number] ROCIO MASSEY MD at 1854 CC: [id number] DICTATION DATE: 07/12/16 1114 REMOTE SENSING SCIENTIST: 07/12/16 1246 ADM IN [facility] [address] [place] [address]
[2016-07-12 20:00] VITALS: BP 114/60
--- NOTE | 2016-07-12 20:52 | OP ---
PATIENT NAME: LE WOODARD JR MEDICAL RECORD: [id number] :45 LOCATION:[id number] ADMISSION DATE:07/12/16 SURGEON: WALLACE TAVERA MD DATE OF OPERATION: 07/12/2016 SURGEON: Wallace Tavera M.D. ANESTHESIA: General. PREOPERATIVE DIAGNOSES: Left ureteral injury during colon surgery, possible left ureteral stricture, urinary tract infection. PROCEDURE: Cystoscopy, left ureteral stent removal, left retrograde pyelogram. FINDINGS: Obstructive benign prostatic hypertrophy with trilobar hyperplasia. Encrusted left ureteral stent. Single ureteral orifices bilaterally. Moderately trabeculated bladder with no bladder tumors seen. About 2 cm stricture in the distal left ureter. SPECIMENS: Left ureteral stent. ESTIMATED BLOOD LOSS: None. 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 Dr. Oconnell performed a diverting ileostomy and he had chemotherapy and radiation afterwards. He then had resection of the tumor and during that resection, there was an injury to the left ureter. The ureter was repaired over a stent by Dr. Oconnell. He comes in now to have the ileostomy reversed. Dr. Oconnell has finished doing the procedure. In the interim, the patient has also developed a urinary tract infection and for that reason, the ureteral stent needs to be removed. I will also try to evaluate for the presence of a stricture with the retrograde pyelogram. DESCRIPTION OF PROCEDURE: The patient in dorsal lithotomy position. He is prepped and draped. He has been given IV antibiotics and he is in general anesthesia. We used a 21-Yi cystoscope with 30-degree lens. Penile urethra was normal. Prostatic urethra shows obstructive trilateral BPH. There was quite a large median lobe. Going into the bladder, he has a moderately trabeculated bladder with single ureteral orifices on each side. The ureteral stent is seen from the left ureteral orifice and it is encrusted with stone material. No bladder tumors were seen. The flexible graspers were used and the left ureteral stent was removed entirely. This was confirmed with fluoroscopy. We then inserted a 5-Yi open-ended ureteral catheter into the left ureteral orifice. A retrograde pyelogram was performed by injection of contrast. There is no hydronephrosis. However, there is a definite area of stricture about 2 cm long in the sacral region of the ureter on the left side. For now, he will stay on antibiotics to clear up his UTI. In 2 weeks' time, I will obtain a Lasix renal scan to determine if there is obstruction of that left ureter. TRANSINT:[id number] Voice Confirmation ID: [id number] DOCUMENT ID: [id number] OPERATIVE REPORT [id number] LE WOODARD JR, WALLACE Harman MD at 2052 CC: [id number] DICTATION DATE: 07/12/16 1210 HEALTH SAFETY AND ENVIRONMENT MANAGER: 07/12/16 1607 ADM IN [facility] [address] [place] [id number]
--- NOTE | 2016-07-12 22:06 | NUR ---
PATIENT RESTING IN BED. C/O PAIN 08/28 TO ABDOMEN. PRN NORCO GIVEN. SHIFT ASSESSMENT COMPLETED. DENIES ANY NEEDS AT THIS TIME. BED LOW. CALL LIGHT IN REACH
[2016-07-13] VITALS: BP 110/66
[2016-07-13 04:00] VITALS: BP 105/64
--- NOTE | 2016-07-13 08:24 | NUR ---
SCHEDULED MEDICATIONS ADMINISTERED AT THIS TIME. ASSESSMENT PERFORMED PER FLOWSHEET AND DRESSING TO RIGHT ABDOMEN CHANGED PER ORDER. SCD'S REMOVED AND SKIN TO BLE WNL. IV PATENT. PRN PAIN MEDICATION GIVEN PER ORDER. CALL LIGHT IN REACH, WILL CONTINUE WITH PLAN OF CARE.
[2016-07-13 08:54] LABS: BASOPHILS 0 % (0-2); HEMATOCRIT 30.7 % (42.0-54.0); HEMOGLOBIN 10.2 g/dL (13.5-17.5); IMMATURE GRANULOCYTES 0.3 % (0-5); LYMPHOCYTES 13.6 % (15-50); MCH 29.7 pg (26.0-34.0); MCHC 33.2 g/dL (31.0-37.0); MCV 89.2 fL (80.0-100.0); MEAN PLATELET VOLUME 9.3 fL (7.4-10.4); MONOCYTES 8.5 % (2-11); NEUTROPHILS 76.6 % (40-80); PLATELET COUNT 153 10x3/uL (130-400); RBC 3.44 10x6/uL (4.20-6.10); RDW 14.9 % (11.5-14.5); WBC 7.7 10x3/uL (4.8-10.8)
[2016-07-13 09:03] VITALS: BP 139/67
[2016-07-13 09:05] LABS: ANION GAP 13.8 mmol/L (8-16); CARBON DIOXIDE 22.1 mmol/L (21.0-32.0); CREATININE - SERUM 1.4 mg/dL (0.6-1.3); MAGNESIUM - SERUM 1.3 mg/dL (1.8-2.4); POTASSIUM - SERUM 3.9 mmol/L (3.5-5.1)
--- NOTE | 2016-07-13 10:25 | NUR ---
WALKING WITH PHYSICAL THERAPY AT THIS TIME WITH MINIMAL ASSISTANCE. WILL CONTINUE WITH PLAN OF CARE.
[2016-07-13 10:59] VITALS: Ht 182.9 cm; Wt 88.5 kg
[2016-07-13 12:16] VITALS: BP 115/63
--- NOTE | 2016-07-13 14:10 | NUR ---
AMBULATING IN HALLWAY INDEPENDENTLY AT THIS TIME. DENIES NEEDS OR PAIN. WILL CONTINUE WITH PLAN OF CARE.
[2016-07-13 14:58] VITALS: BP 114/59
--- NOTE | 2016-07-13 20:00 | NUR ---
ASSESSMENT PER FLOWSHEET. DRESSING TO RT ABDOMINAL INCISION C/D/I. CECIL IN PLACE. IV PATENT LEFT FOREARM OF NS AT 150CC'S/HR. SITE CLEAR. VOIDS WELL IN THE URINAL. SCD'S ON.
--- NOTE | 2016-07-13 21:00 | NUR ---
MEDS GIVEN PER MAR.
[2016-07-13 21:19] VITALS: BP 113/48
[2016-07-14] VITALS: BP 110/52
--- NOTE | 2016-07-14 05:12 | NUR ---
C/O ACHING PAIN IN HIS INCISIONAL SITE RATES PAIN LEVEL #4. TYLENOL 650MG PO GIVEN FOR PAIN CONTROL.
[2016-07-14 05:53] LABS: BASOPHILS 0.2 % (0-2); EOSINOPHILS 2.6 % (0-7); HEMOGLOBIN 9.7 g/dL (13.5-17.5); IMMATURE GRANULOCYTES 0.5 % (0-5); LYMPHOCYTES 14.4 % (15-50); MCH 29.1 pg (26.0-34.0); MCHC 32.3 g/dL (31.0-37.0); MCV 90.1 fL (80.0-100.0); MONOCYTES 10.4 % (2-11); NEUTROPHILS 71.9 % (40-80); PLATELET COUNT 175 10x3/uL (130-400); RBC 3.33 10x6/uL (4.20-6.10); RDW 15.3 % (11.5-14.5); WBC 6.1 10x3/uL (4.8-10.8)
[2016-07-14 05:58] LABS: ANION GAP 14.3 mmol/L (8-16); CALCIUM 9.2 mg/dL (8.5-10.1); CARBON DIOXIDE 23.4 mmol/L (21.0-32.0); CREATININE - SERUM 1.6 mg/dL (0.6-1.3); MAGNESIUM - SERUM 1.5 mg/dL (1.8-2.4); POTASSIUM - SERUM 3.7 mmol/L (3.5-5.1)
[2016-07-14 06:35] VITALS: BP 113/55
--- NOTE | 2016-07-14 07:30 | NUR ---
SLEEPING AT THIS TIME WITH RESPIRATIONS EVEN AND NON LABORED. SCD'S ON AT THIS TIME. SRX2 WITH BED IN LOWEST POSITION AND WHEELS LOCKED. CALL LIGHT IN REACH, WILL CONTINUE WITH PLAN OF CARE.
--- NOTE | 2016-07-14 08:00 | NUR ---
AMBULATING IN HALLWAY AT THIS TIME INDEPENDENTLY. DENIES NEEDS, WILL CONTINUE WITH PLAN OF CARE.
[2016-07-14 08:45] VITALS: BP 117/64
--- NOTE | 2016-07-14 09:52 | NUR ---
SCHEDULED MEDICATIONS ADMINISTERED AT THIS TIME WITHOUT DIFFICULTY. DRESSING TO RIGHT ABDOMEN REMOVED. SCANT AMOUNT OF BLOODY DRAINAGE PRESENT. CECIL REMAIN INTACT WITH MIDDLE OF INCISION LEFT OPEN. 4X4'S APPLIED TO SITE AND METIPORE TAPE USED TO SECURE DRESSING. PT TOLERATED WITHOUT COMPLAINTS. ASSESSMENT PERFORMED PER FLOWSHEET. BOWEL SOUNDS HYPOACTIVE AND PT NOT PASSING FLATUS AT THIS TIME. DENIES NEED FOR PAIN MEDICATION AT THIS TIME. CALL LIGHT IN REACH. PT IS SELF AMBULATORY AND POSITIONS HIMSELF FOR COMFORT. WILL CONTINUE WITH PLAN OF CARE.
--- NOTE | 2016-07-14 10:52 | NUR ---
Patient Name: LE WOODARD Admission Status: Elective Accout number: [id number] Admission Date: 07-12-2016 : 1945 Admission Diagnosis: Attending: LESLY Current LOS: 2 Anticipated DC Date: 07-19-2016 Planned Disposition: Home Primary Insurance: MEDICARE A & B Discharge Planning Comments: CM MET WITH PATIENT REGARDING D/C NEEDS AND PLANS. PATIENTS STATED SHE WILL DRIVE HIM HOME AT DISCHARGE. THERE ARE 4 STEPS W/O RAILS TO ENTER HOME AND NO STAIRS INSIDE. PATIENT IS INDEPENDENT WITH HIS CARE AND HAS NO DME AT HOME. PATIENTS PCP IS DR. CHANDRA AT [place] AND PHARMACY IS [facility]. PATIENTS STATED HE JUST WENT OFF SERVICE WITH [facility] AND IF AT DISCHARGE HOME HEALTH IS NEEDED THEY WOULD USE [facility]. CM WILL CONTINUE TO FOLLOW PATIENT WITH D/C NEEDS AND PLANS. PCP DR. CHANDRA [facility] [phone] TERI () [phone] Crabbing Machine Operator: Luma Canela Is the patient Alert and Oriented? Yes 0 * How many steps to enter\exit or inside your home? 4/NO RAILS 0 * PCP DR. CHANDRA [place] 0 * Pharmacy [facility] IN [place] [phone] 0 * Preadmission Environment Home with Family 0 * ADLs Independent 0 * Equipment None 0 * List name and contact numbers for known caregivers / representatives who currently or will assist patient after discharge: TERI (SPOUSE) [phone] 0 * Community resources currently utilized None 0 * Additional services required to return to the preadmission environment? Yes 0 * Can the patient safely return to the preadmission environment? Yes 0 * Has this patient been hospitalized within the prior 30 days at any hospital? No 0 Grand Total: 0
--- NOTE | 2016-07-14 10:58 | NUR ---
SCHEDULED ANTIBIOTIC ADMINISTERED AT THIS TIME. IV TO LEFT HAND REMAINS PATENT WITH NO S/S OF INFILTRATION PRESENT. FAMILY AT BEDSIDE. PT DENIES NEEDS. CALL LIGHT IN REACH, WILL CONTINUE WITH PLAN OF CARE.
[2016-07-14 11:37] VITALS: BP 113/51
--- NOTE | 2016-07-14 13:30 | NUR ---
CALLED TO PT'S ROOM AT THIS TIME. EMESIS BAG WITH 600ML OF BILE COLORED FLUID. ASSISTED PT UP TO CHAIR, SO THAT LINENS COULD BE CHANGED. PT UP TO SINK INDEPENDENTLY TO BRUSH HIS TEETH. 200ML OF DARK, CONCENTRATED URINE EMPTIED FROM URINAL FROM 1330 AND PT VOIDED ANOTHER 100ML OF DARK, CONCENTRATED URINE WHILE I WAS IN THE ROOM. ASSISTED PT BACK TO BED EMESIS BAG AND CALL LIGHT IN REACH.
--- NOTE | 2016-07-14 14:00 | NUR ---
PT COMPLAINS OF MILD NAUSEA, BUT DENIES NEED FOR ZOFRAN AT THIS TIME. FAMILY REMAINS AT BEDSIDE. CALL LIGHT REACH, DENIES FURTHER NEEDS. STILL HAS NOT PASSED FLATUS. WILL CONTINUE WITH PLAN OF CARE.
--- NOTE | 2016-07-14 14:40 | NUR ---
PRN ZOFRAN ADMINISTERED AT THIS TIME FOR PT'S COMPLAINT OF NAUSEA WITHOUT EMESIS AT THIS TIME.
[2016-07-14 15:27] VITALS: BP 124/79
--- NOTE | 2016-07-14 17:35 | NUR ---
ENTERED PT'S ROOM AND HE IS ACTIVELY VOMITING WITH 400 ML OF BILE COLORED THIN LIQUID. NOTIFIED DR MASSEY AND HE GAVE ORDERS TO INSERT AN NG TUBE TO LOW INTERMITTENT SUCTION.
--- NOTE | 2016-07-14 17:45 | NUR ---
16 YI NG TUBE DROPPED THROUGH THE RIGHT NARE X1 ATTEMPT. IMMEDIATE RETURN OF 300ML OF BILE INTO NG TUBE CANISTER. PT TOLERATED WITH MINIMAL C/O PAIN, BUT DID EXPERIENCE SOME VOMITING WITH 100 ML OF BILE COLORED EMESIS. AND MOTHER IN LAW AT BEDSIDE. PROVIDED PT WITH ICE CHIPS. WILL GET AN ORDER FOR CHLORASEPTIC SPRAY. CALL LIGHT IN REACH, WILL CONTINUE WITH PLAN OF CARE.
[2016-07-14 20:00] VITALS: BP 145/82
--- NOTE | 2016-07-14 20:17 | NUR ---
ASSESSMENT PER FLOWSHEET. DRESSING TO RT LOWER ABDOMEN C/D/I. DRESSING CHANGE DONE WITH 4X4 AND TAPE. IV PATENT LEFT HAND OF NS AT 75CC'S/HR SITE CLEAR. NGT TO RT NARE PATENT CONNECTED TO PAPER HANGER. BROWN COLORED DRAINAGE RETURN. SCD'S ON. SR UP X2 CALL LIGHT WITHIN REACH. DENIES PAIN OR DISCOMFORT.
--- NOTE | 2016-07-14 22:00 | NUR ---
MEDS GIVEN PER MAY. ADVANCED NGT FURTHER DOWN CHECKED PLACEMENT. GOOD RETURN NOTED.
[2016-07-15] VITALS: BP 104/74
--- NOTE | 2016-07-15 | NUR ---
EYES CLOSED RESPIRATIONS WITH EASE AND UNLABORED.
--- NOTE | 2016-07-15 03:31 | NUR ---
RESTING QUIETLY VOIDS WELL IN URINAL.
[2016-07-15 04:00] VITALS: BP 130/67
--- NOTE | 2016-07-15 04:54 | NUR ---
RESTING AT THIS TIME DENIES NEEDS.
--- NOTE | 2016-07-15 07:40 | NUR ---
NG TUBE TO RIGHT NARE PATENT. ABDOMEN SLIGHTLY DISTENDED AND PT NOT PASSING FLATUS. 450 ML OF BROWNISH, GREEN LIQUID FROM NG TUBE. PAIN LEVEL 5/10 AT THIS TIME. EXPLAINED TO PT THAT DR MASSEY SHOULD ROUND SHORTLY AND IF NOT THEN I WOULD PAGE HIM REGARDING PAIN MEDICATION. PT VERBALIZED UNDERSTANDING. CALL LIGHT IN REACH, WILL CONTINUE WITH PLAN OF CARE.
[2016-07-15 08:21] VITALS: BP 129/62
--- NOTE | 2016-07-15 09:06 | NUR ---
NG TUBE CANISTERED REMOVED AND 800 ML OF GREENISH BROWN LIQUID INSIDE. CANISTER REPLACED AND IMMEDIATE RETURN OF 600ML OF GREENISH, BROWN LIQUID. PT'S ABDOMEN SOFT TO TOUCH NOW AND DRESSING TO ABDOMEN CHANGED PER ORDER. FAMILY AT BEDSIDE AND PT DENIES NAUSEA AT THIS TIME. UNABLE TO TAKE PILLS D/T NG TUBE AND PT STATES, "THEY STICK TO THE TUBE." WILL ATTEMPT PT TAKING FLOMAX AT A LATER TIME. CALL LIGHT IN REACH, WILL CONTINUE WITH PLAN OF CARE.
--- NOTE | 2016-07-15 11:25 | NUR ---
NG TUBE CLAMPED AND PT AMBUALTING AROUND NURSING UNIT WITH FAMILY.
[2016-07-15 12:26] VITALS: BP 100/52
--- NOTE | 2016-07-15 13:40 | NUR ---
Nutrition Follow Up: Chart reviewed. Pt remains NPO with NGT to LIS. Pt continues with nausea and abdominal pain. I>O. Wt stable. Labs reviewed. Meds noted including NS @ 150 ml/hr, MV. Rec advancing diet as soon as medically feasible. If diet unable to advance within the next 24-48 hours rec start nutrition support. RD will continue to monitor pt progress.
--- NOTE | 2016-07-15 15:15 | NUR ---
SCHEDULED MEDICATION ADMINISTERED AT THIS TIME. NG TUBE CANISTER WITH 1,000 ML OF GREEN, BROWN LIQUID THAT SMELLS LIKE STOOL. CANISTER CHANGED. PT SLEEPING WITH RESPIRATIONS EVEN AND NON LABORED. CALL LIGHT IN REACH.
[2016-07-15 16:22] VITALS: BP 112/60
[2016-07-15 20:00] VITALS: BP 118/69
[2016-07-16] VITALS: BP 135/82
[2016-07-16 04:00] VITALS: BP 138/71
--- NOTE | 2016-07-16 06:51 | NUR ---
ASSESSED AT THE BEGINNING OF THE SHIFT. PT IS ALERT AND ORIENTED, ABLAE TO VERBALIZE NEEDS. PT HAD INCISION TO RT SIDE FROM SURGERY WHICH LOOKS GOOD. HE HAS AN NG TUBE IN PLACE FOR LOW INTERMITTEN SUCTION AND IT HAS BEEN DRAWING OUT GREEN BILE. HE IS ABLE TO USE THE URINAL TO VOID AND IS MOVING ABOUT THE BED BY HIMSELF. ONE TIME WE FLUSHED HIS NG TUBE BECAUSE IT WAS NOT DRAWING WELL AND THEN IT PICKED UP AND RETURNED TO NORMAL. HE IS EATING A FEW ICE CHIPS. THE BED IS LOW, RAILS UP X'S 2 WITH THE CALL LIGHT AT HAND.
[2016-07-16 08:00] VITALS: BP 125/73
--- NOTE | 2016-07-16 08:36 | NUR ---
AWAKE AND ALERT. ORIENTED X3. NO C/O AT THIS TIME. NG TO RIGHT NARE IS PATENT WITH DARK GREEN DISCHARGE. LUNGS ARE CLEAR BILATERALLY, NO COUGH NOTED. SKIN IS INTACT WITHOUT REDNESS EXCEPT INCISION TO RIGHT LOWER ABDOMEN, WHICH HAS A DRY INTACT DRESSING IN PLACE. IV TO LEFT HAND IS PATENT WITHOUT REDNESS AT INSERTION SITE. DENIES NEEDS.
[2016-07-16 09:16] LABS: CREATININE - SERUM 1.4 mg/dL (0.6-1.3)
--- NOTE | 2016-07-16 09:30 | NUR ---
TOOK AM MEDS WITHOUT DIFFICULTY. AMBULATED IN HALLWAY PER SELF 500 PLUS FEET. REPORTS FEELS LIKE NG TUBE IS BACKING UP. FLUSHED WITH WATER AND TUBING CLEARED REPORTS FEELS MUCH BETTER.
--- NOTE | 2016-07-16 11:00 | NUR ---
LEFT PORT ACCESSED USING STERILE TECHNIQUE WITH GOOD BLOOD RETURN.
[2016-07-16 12:29] VITALS: BP 151/76
--- NOTE | 2016-07-16 13:30 | NUR ---
OFF UNIT VIA BED FOR CT SCAN.
[2016-07-16 13:52] LABS: CALCIUM 9.6 mg/dL (8.5-10.1); CARBON DIOXIDE 22.4 mmol/L (21.0-32.0); CREATININE - SERUM 1.4 mg/dL (0.6-1.3); MAGNESIUM - SERUM 1.7 mg/dL (1.8-2.4); PHOSPHOROUS 3.9 mg/dL (2.5-4.9); POTASSIUM - SERUM 3.4 mmol/L (3.5-5.1)
--- NOTE | 2016-07-16 14:08 | NUR ---
RETURNED FROM CT. NO C/O AT THIS TIEM.
--- NOTE | 2016-07-16 14:39 | NUR ---
NUTRITION MONITORING & EVAL CHART REVIEWED. PT REMAINS NPO WITH NG TUBE. TPN STARTED @ 40 CC/HR PER MD CONSULT. AM LABS ORDERED TIME 3 DAYS. WILL INCREASE TPN RATE ON TUESDAY IF PT REMAINS NPO. RD FOLLOWING
[2016-07-16 15:47] VITALS: BP 127/68
--- NOTE | 2016-07-16 17:00 | NUR ---
MOVED TO ROOM 2204 VIA BED PER PATIENT REQUEST. DENIES NEEDS. NO CHANGES NOTED.
--- NOTE | 2016-07-16 19:35 | NUR ---
LYING IN BED WATCHING TV, ASSESSMENT COMPLETED, NO ACUTE DISTRESS NOTED, NGT AT LIT, DENIES NEEDS AT THIS TIME, SR'S UP, CL IN REACH, WILL MONITOR
[2016-07-16 20:00] VITALS: BP 136/70
--- NOTE | 2016-07-16 22:16 | NUR ---
MEDS GIVEN PER MAY, NG TUBE CLAMPED FOR MOM, RESTARTED TO LIT AFTER 30 MINS, ABD INCISION DSG APPLIED, JACOBY WELL, DENIES OTHER NEEDS AT THIS TIME, CL IN REACH
--- NOTE | 2016-07-16 23:35 | NUR ---
RESTING WITH EYES CLOSED, RESP WITH EASE, NO DISTRESS NOTED, SR'S UP, CL IN REACH, WILL CONTINUE TO MONITOR
--- NOTE | 2016-07-17 01:05 | NUR ---
PT UP TO SIDE OF BED TO USE URINAL, NO DISTRESS NOTED, DENIES NEEDS AT THIS TIME, CL IN REACH
--- NOTE | 2016-07-17 03:32 | NUR ---
ISRAEL CRUZ PER MAR, JACOBY WELL, NGT SUCTION CANISTER CHANGED, DENIES NEEDS, CL IN REACH
--- NOTE | 2016-07-17 04:17 | NUR ---
MEDS HUNG PER MAR, JACOBY WELL, DENIES NEEDS, CL IN REACH
--- NOTE | 2016-07-17 07:40 | NUR ---
PATIENT RECEIVED ALERT IN MID SORENSEN POSITION. RESPIRATIONS EVEN AND UNLABORED. DENIES NEEDS. SIDE RAILS UP X2. BED IN LOW POSITION. CALL LIGHT IN REACH.
[2016-07-17 08:03] VITALS: BP 129/68
--- NOTE | 2016-07-17 08:49 | NUR ---
PATIENT ALERT IN BED. RESPIRATIONS EVEN AND UNLABORED. NGT CLAMPED. SCHEDULED MEDICATION ADMINISTERED. WELL TOLERATED. DENIES NEEDS. SIDE RAILS UP X2. BED IN LOW POSITION. CALL LIGHT IN REACH.
--- NOTE | 2016-07-17 09:40 | NUR ---
NGT TO [place]ER[place]
--- NOTE | 2016-07-17 10:30 | NUR ---
NGT CLAMPED. PATIENT UP AMBULATING IN HALLWAY WITH . NO SIGNS OF DISTRESS NOTED.
[2016-07-17 12:33] VITALS: BP 119/62
--- NOTE | 2016-07-17 13:00 | NUR ---
ALERT IN BED. PRESENT. NGT TO LIWS. DENIES NEEDS. SIDE RAILS UP X2. BED IN LOW POSITION. CALL LIGHT IN REACH.
--- NOTE | 2016-07-17 14:30 | NUR ---
PATIENT IN LOW SORENSEN POSITION RESTING WITH EYES CLOSED. RESPIRATIONS EVEN AND UNLABORED. SIDE RAILS UP X2. BED IN LOW POSITION. CALL LIGHT IN REACH.
[2016-07-17 15:34] VITALS: BP 110/63
--- NOTE | 2016-07-17 17:30 | NUR ---
PATIENT IN LOW SORENSEN POSITION RESTING QUIETLY WITH EYES CLOSED. RESPIRATIONS EVEN AND UNLABORED. SIDE RAILS UP X2. BED IN LOW POSITION. CALL LIGHT IN REACH.
--- NOTE | 2016-07-17 19:33 | NUR ---
LYING IN BED TALKING WITH , ASSESSMENT COMPLETED, NO ACUTE DISTRESS NOTED, IV INFUSING TO L CHEST PORT, NGT TO LIT, DENIES NEEDS, SR'S UP, CL IN REACH, WILL MONITOR
[2016-07-17 20:00] VITALS: BP 133/75
--- NOTE | 2016-07-17 20:32 | NUR ---
MEDS GIVEN PER MAR, JACOBY WELL, RESP THERAPY IN ROOM
--- NOTE | 2016-07-17 21:41 | NUR ---
LYING IN BED WATCHING TV, NGT TO LIT, DENIES NEEDS, CL IN REACH, WILL CONTINUE TO MONITOR
--- NOTE | 2016-07-17 23:23 | NUR ---
PT UP TO BSC FOR BM, NO DISTRESS NOTED, CL IN REACH
[2016-07-18] VITALS: BP 136/76
--- NOTE | 2016-07-18 03:58 | NUR ---
ACETAMINOPHEN HUNG PER MAR, JACOBY WELL, PT HAD 3RD BM, DENIES NEEDS, CL IN REACH
[2016-07-18 04:00] VITALS: BP 142/70
--- NOTE | 2016-07-18 07:25 | NUR ---
PATIENT RECEIVED ALERT IN LOW SORENSEN POSITION. RESPIRATIONS EVEN AND UNLABORED. NGT TO LIWS. DENIES NEEDS. SIDE RAILS UP X1. BED IN LOW POSITION. CALL LIGHT IN REACH.
[2016-07-18 07:57] VITALS: BP 129/75
--- NOTE | 2016-07-18 08:57 | NUR ---
PATIENT ALERT IN BED. NO SIGNS OF DISTRESS NOTED. NGT CLAMPED. SCHEDULED MEDICATION ADMINISTERED. DENIES NEEDS. SIDE RAILS UP X1. BED IN LOW POSITION. CALL LIGHT IN REACH.
--- NOTE | 2016-07-18 10:30 | NUR ---
PATIENT UP AT BEDSIDE. NO SIGNS OF DISTRESS NOTED. DENIES NEEDS. CALL LIGHT IN REACH.
[2016-07-18 12:41] VITALS: BP 129/71
[2016-07-18 15:57] VITALS: BP 127/69
--- NOTE | 2016-07-18 17:10 | NUR ---
PATIENT UP AT BEDSIDE. NO SIGNS OF DISTRESS NOTED. DENIES NAUSEA AND OTHER NEEDS. CALL LIGHT IN REACH.
--- NOTE | 2016-07-18 19:37 | NUR ---
ASSESSMENT COMPLETED, NO ACUTE DISTRESS NOTED, DENIES NEEDS AT THIS TIME, FALL PRECAUTIONS IN PLACE, CL IN REACH, WILL MONITOR
[2016-07-18 20:00] VITALS: BP 137/68
--- NOTE | 2016-07-18 20:42 | NUR ---
REFUSED MOM DUE TO DIARRHEA, NGT UNCLAMPED PER ORDERS, NO NAUSEA NOTED, HOB ELEVATED, DENIES NEEDS, CL IN REACH
--- NOTE | 2016-07-18 23:03 | NUR ---
CLINIMIX HUNG PER MAR, NO NEEDS NOTED, CL IN REACH
--- NOTE | 2016-07-19 00:21 | NUR ---
NGT CLAMPED PER ORDER, DENIES NAUSEA, WILL CONTINUE TO MONITOR, CL IN REACH
--- NOTE | 2016-07-19 01:47 | NUR ---
IV FLUIDS HUNG (BAG EMPTY), JACOBY WELL, CL IN REACH
--- NOTE | 2016-07-19 03:30 | NUR ---
PAGED FOR ORDERS CONCERNING IV TYLENOL, AWAITING RETURN CALL
[2016-07-19 04:00] VITALS: BP 131/66
[2016-07-19 06:07] LABS: BASOPHILS 0.2 % (0-2); EOSINOPHILS 5.8 % (0-7); HEMATOCRIT 28.1 % (42.0-54.0); HEMOGLOBIN 9.1 g/dL (13.5-17.5); IMMATURE GRANULOCYTES 0.9 % (0-5); LYMPHOCYTES 19.4 % (15-50); MCH 29.7 pg (26.0-34.0); MCHC 32.4 g/dL (31.0-37.0); MCV 91.8 fL (80.0-100.0); MEAN PLATELET VOLUME 10.1 fL (7.4-10.4); NEUTROPHILS 62.7 % (40-80); RBC 3.06 10x6/uL (4.20-6.10); RDW 15.3 % (11.5-14.5); WBC 4.6 10x3/uL (4.8-10.8)
[2016-07-19 06:27] LABS: PLATELET COUNT 221 10x3/uL (130-400)
[2016-07-19 06:53] LABS: ALBUMIN 2.7 g/dL (3.4-5.0); ANION GAP 13.8 mmol/L (8-16); BILIRUBIN - TOTAL 0.32 mg/dL (0.2-1.3); CALCIUM 9.2 mg/dL (8.5-10.1); CARBON DIOXIDE 25.7 mmol/L (21.0-32.0); CREATININE - SERUM 1.2 mg/dL (0.6-1.3); PHOSPHOROUS 3.8 mg/dL (2.5-4.9); POTASSIUM - SERUM 3.5 mmol/L (3.5-5.1)
--- NOTE | 2016-07-19 07:05 | NUR ---
PATIENT RECEIVED ALERT IN MID SORENSEN POSITION. RESPIRATIONS EVEN AND UNLABORED. NGT CLAMPED. DENIES NAUSEA. SIDE RAILS UP X2. BED IN LOW POSITION. CALL LIGHT IN REACH.
[2016-07-19 07:54] VITALS: BP 135/72
--- NOTE | 2016-07-19 08:55 | NUR ---
ALERT IN BED. RESPIRATIONS EVEN AND UNLABORED. SCHEDULED MEDICATION ADMINISTERED. SIDE RAILS UP X2. BED IN LOW POSITION. CALL LIGHT IN REACH.
--- NOTE | 2016-07-19 10:57 | NUR ---
PATIENT RESTING QUIETLY WITH EYES CLOSED. RESPIRATIONS EVEN AND UNLABORED. SIDE RAILS UP X2. BED IN LOW POSITION. CALL LIGHT IN REACH.
[2016-07-19 11:26] VITALS: BP 145/73
--- NOTE | 2016-07-19 13:07 | NUR ---
PATIENT SITTING UP ON SIDE OF BED ALERT. NO SIGNS OF DISTRESS NOTED. NGT D/C PER ORDER. TIP INTACT. WELL TOLERATED.
--- NOTE | 2016-07-19 13:08 | NUR ---
NUTRITION MONITORING & EVAL CHART REVIEWED, PT VISIT. DIET ADVANCED TO FULL LIQUID. WILL NOT ADVANCE TPN RATE AT THIS TIME. AM LABS ORDERED. RD FOLLOWING
[2016-07-19 15:41] VITALS: BP 137/71
--- NOTE | 2016-07-19 16:45 | NUR ---
PATIENT RESTING QUIETLY WITH EYES CLOSED. RESPIRATIONS EVEN AND UNLABORED. SIDE RAILS UP X2. BED IN LOW POSITION. CALL LIGHT IN REACH.
--- NOTE | 2016-07-19 19:45 | NUR ---
PT SITTING UP IN BEDS, ASSESSMENT COMPLETED, NO DISTRESS NOTED, DENIES PAIN, NAUSEA OR NEEDS AT THIS TIME, SR'S UP X2, CL IN REACH, WILL MONITOR
[2016-07-19 20:00] VITALS: BP 135/74
--- NOTE | 2016-07-19 20:43 | NUR ---
MEDS GIVEN PER MAR, NS AND TPN BAGS REPLACED, PT DENIES NAUSEA OR NEEDS, CL IN REACH
--- NOTE | 2016-07-19 22:58 | NUR ---
VANILLA ICE CREAM GIVEN PER REQUEST JACOBY WELL, WILL MONITOR FOR NAUSEA, CL IN REACH
--- NOTE | 2016-07-19 23:49 | NUR ---
RESTING WITH EYES CLOSED, RESP WITH EASE, NO DISTRESS NOTED, SR'S UP, CL IN REACH
[2016-07-20] VITALS: BP 136/72
[2016-07-20 06:08] LABS: CALCIUM 9.2 mg/dL (8.5-10.1); CARBON DIOXIDE 26.4 mmol/L (21.0-32.0); CREATININE - SERUM 1.2 mg/dL (0.6-1.3); MAGNESIUM - SERUM 1.8 mg/dL (1.8-2.4); PHOSPHOROUS 3.9 mg/dL (2.5-4.9); POTASSIUM - SERUM 3.4 mmol/L (3.5-5.1)
[2016-07-20 08:07] VITALS: BP 137/69
--- NOTE | 2016-07-20 09:54 | NUR ---
PT SEEN AND ASSESSED. NO COMPLAINTS AT PRESENT. IN PLEASEANT MOOD THIS AM. DRESSING TO RLQ CHANGED-CECIL CLEAN DRY AND INTACT. STATES HAD BM LAST NIGHT WITH NO N/V THIS AM. CALL LIGHT IN REACH
[2016-07-20 12:47] VITALS: BP 134/75
--- NOTE | 2016-07-20 14:59 | NUR ---
PATIENT IS AWAKE AND ALERT, SITTING UP IN HIS BED, HI FOWLERS. HE DENIES NEEDS AT THIS TIME. CALL LIGHT IS WITHIN HIS REACH. BEDSIDE COMMODE AT THE BEDISDE. HE STATES THAT HE IS HAVING REGULAR BOWEL MOVEMENTS AND TOLERATING A REGULAR DIET.
[2016-07-20 16:27] VITALS: BP 128/77
--- NOTE | 2016-07-20 17:22 | NUR ---
PATIENT IS RESTING QUIETLY WITH EYES CLOSED, HEAD HYPEREXTENDED, MOUTH AGAPE, RESPIRATIONS DEEP AND EVEN. HE WOKE EASILY TO VOICE AND TOUCH. REPORTED TO HIM THAT DR. MASSEY IS ON THE PHONE ENQUIRING ABOUT HIS CONFIDENCE REGARDING GOING HOME. HE STATE SHTAT HE WILL FEEL MUCH BETTER ABOUT GOING HOME IN THE MORNING. NOTIFIED DR. MASSEY. ENCOURAGED PATIENT TO AMBULATE, INCREASE ACTIVITY TO INCREASE CONFIDENCE.
--- NOTE | 2016-07-20 19:30 | NUR ---
RECIEVED SHIFT REPORT. PT IS LYING IN BED. ALERT AND ORIENTED AND ABLE TO VERBALIZE NEEDS. IV IS PATENT AND FLUIDS ARE RUNNING PER ORDER. PT IS AMBULATORY BUT WAS INSTRUCTED TO CALL FOR ANY ASSISTANCE NEEDED. DRESSING TO ABDOMEN C/D/I. PT STATES PAIN IS 3/10. NO NEEDS ARE VERBALIZED AT THIS TIME. WILL CONTINUE TO MONITOR. SIDE RAILS ARE UP X 2. BED IS IN LOWEST POSITION. CALL LIGHT IS WITHIN REACH.
[2016-07-20 20:00] VITALS: BP 139/70
--- NOTE | 2016-07-20 20:46 | NUR ---
SHIFT ASSESSMENT COMPLETED. NIGHT MEDS GIVEN WITH NO PROBLEMS. NO NEEDS ARE VOICED. WILL MONITOR. SIDE RAILS X 2. BED LOW. CALL LIGHT IN REACH.
[2016-07-21 04:00] VITALS: BP 138/83
[2016-07-21] MEDS ORDERED: BACTRIM DS TABL1 TAB PO (08:06)
--- NOTE | 2016-07-21 08:30 | NUR ---
AWAKE AND ALERT. ORIENTED X3. NO C/O AT THIS TIME. LUNGS ARE CLEAR BILATERALLY, OCCASSIONAL DRY COUGH NOTED. SKIN IS INTACT WITHOUT REDNESS EXCEPT SMALL INCISION TO RIGHT LOWER QUAD WHICH HAS A DRY INTACT [id number] IN PLACE. LEFT PORT PATENT WITHOUT REDNESS AT ISNERTION SITE. SL TO LEFT HAND PATENT WITHOUT REDNESS. DENIES NEEDS.
[2016-07-21 08:57] VITALS: BP 142/76
--- NOTE | 2016-07-21 09:19 | NUR ---
CM REASSESSMENT NOTE: PATIENT IS DISCHARGING TODAY / WILL DRIVE HIM HOME. PATIENT REF. HOME HEALTH AND HAD NO OTHER NEEDS FOR DISCHARGE.
--- NOTE | 2016-07-21 09:50 | NUR ---
ATE MOST OF BREAKFAST. REPORTS LARGE BM THIS AM SOFT AND LOOSE. NO C/O VOICED.
--- NOTE | 2016-07-21 10:45 | NUR ---
SL TO RIGHT HAND D/C WITH CATHETER INTACT. LEFT PORT HEPRANIZED AND DEACCESSED AT THIS TIME WTIHTOUT DIFFICULTY.
--- NOTE | 2016-07-21 10:58 | NUR ---
PATIENT DISCHARGED TO HOME WITH AMBULATORY. DISCHARGE INSTRUCTIONS GIVEN BOTH VERBALLY AND WRITTEN. ALL QUESTIONS ANSWERED. PATIENT AND VERBALIZED UNDERSTANDING OF SAME. NEEDED PRESCRIPTIONS GIVEN TO PATIENT.
== END 2016-07-21 10:59 | disposition home or self-care (01) | DRG 330 ==
LOC: D.SDCHOLD 07:11 → D.MS 07:11 → D.SDCHOLD 07:30 → D.MS 12:31
PROVIDERS: Anesthesiology; Surgery; Urology; ADMIT Surgery
PROC: BT1F1ZZ Fluoroscopy of Left Kidney, Ureter and Bladder using Low Osmolar Contrast (ICD-10-PCS; 2016-07-12)
PROC: 0DJD8ZZ Inspection of Lower Intestinal Tract, Via Natural or Artificial Opening Endoscopic (ICD-10-PCS; principal; 2016-07-12 08:30)
PROC: 0DBB0ZZ Excision of Ileum, Open Approach (ICD-10-PCS; 2016-07-12 08:30)
PROC: 0TP98DZ Removal of Intraluminal Device from Ureter, Via Natural or Artificial Opening Endoscopic (ICD-10-PCS; 2016-07-12 08:30)
PROC: 0D9670Z Drainage of Stomach with Drainage Device, Via Natural or Artificial Opening (ICD-10-PCS; 2016-07-14)
DX: C20 Malignant neoplasm of rectum (principal); N13.8 Other obstructive and reflux uropathy; N12 Tubulo-interstitial nephritis, not specified as acute or chronic; K91.3 Postprocedural intestinal obstruction; N18.9 Chronic kidney disease, unspecified; N40.1 Benign prostatic hyperplasia with lower urinary tract symptoms; R11.2 Nausea with vomiting, unspecified; Z86.73 Personal history of transient ischemic attack (TIA), and cerebral infarction without residual deficits; Y83.9 Surgical procedure, unspecified as the cause of abnormal reaction of the patient, or of later complication, without mention of misadventure at the time of the procedure

== ENCOUNTER → 2016-07-26 13:45 | Outpatient (CLI) | payer MEDICARE, BC ==
[2016-07-13 10:59] VITALS: BMI 26.4
[~2016-07-26 13:45] MED LIST changes: +BACTRIM DS TABL1 TAB PO; +MEGACE400 MG/10 PO
== END | disposition home or self-care (01) ==
LOC: D.OPS 10:00 → D.NM 10:00
DX: N13.5 Crossing vessel and stricture of ureter without hydronephrosis (principal)

== ENCOUNTER 2016-08-26 05:45 | Day surgery (SDC) | payer MEDICARE, BC ==
[2016-08-25 11:03] LABS: BASOPHILS 0.2 % (0-2); EOSINOPHILS 0.7 % (0-7); HEMATOCRIT 33.2 % (42.0-54.0); HEMOGLOBIN 10.9 g/dL (13.5-17.5); IMMATURE GRANULOCYTES 0.2 % (0-5); MCH 29.9 pg (26.0-34.0); MCHC 32.8 g/dL (31.0-37.0); MEAN PLATELET VOLUME 9.5 fL (7.4-10.4); MONOCYTES 10.6 % (2-11); NEUTROPHILS 65.3 % (40-80); PLATELET COUNT 182 10x3/uL (130-400); RBC 3.65 10x6/uL (4.20-6.10); WBC 4.5 10x3/uL (4.8-10.8)
[2016-08-25 11:31] LABS: PROTIME 13.1 SECONDS (11.6-15.0)
[2016-08-25 11:32] LABS: APTT 27.4 SECONDS (22.8-39.4)
[~2016-08-26] VITALS: Ht 181.6 cm; Wt 88.0 kg
[2016-08-26 06:29] VITALS: BP 141/81; Ht 181.6 cm; Wt 88.0 kg
--- NOTE | 2016-08-26 16:04 | OP ---
PATIENT NAME: LE WOODARD JR MEDICAL RECORD: [id number] :45 [facility] DATE: SURGEON: MICHI TAVERA MD DATE OF OPERATION: 08/26/2016 SURGEON: Michi Tavera MD ANESTHESIA: General. PREOPERATIVE DIAGNOSIS: Left distal ureteral stricture. POSTOPERATIVE DIAGNOSIS: Left distal ureteral stricture. FINDINGS: Focal left distal ureteral stricture. On ureteroscopy, there was a suture located at the site of the stricture. PROCEDURES: Cystoscopy, left retrograde pyelogram and left ureteroscopy, left Acucise balloon dilation and ureteral incision, left ureteral stent insertion. ESTIMATED BLOOD LOSS: None. COMPLICATIONS: None. CLINICAL HISTORY: This is a 70-year-old male, who has a rather complicated surgical history. Essentially, he had a rectal cancer resected by Dr. JAN Oconnell. During the surgery, Dr. Oconnell noted an injury to the left distal ureter. He repaired the ureter primarily over a stent. Subsequently, we removed the stent and found on Lasix renal scan that the ureter was obstructed. He had another stent placed temporarily. This stent was later removed. He comes now to have the distal ureteral stricture treated with Acucise balloon dilation and incision. He is aware that the success rate of this procedure is not 100%, but on the order of 60% or slightly greater. If this procedure fails, then the next step would probably be ureteral reimplantation. He was given Ancef 1 gram IV central sterilization technician to the OR. DESCRIPTION OF PROCEDURE: The patient was given induction of general anesthesia. He was then placed into dorsal lithotomy position and prepped and draped. A 21-Thai cystoscope with 30-degree lens was used for visualization. Penile urethra was normal. Prostatic urethra shows some bilateral lateral lobe enlargement. In the bladder, he has single ureteral orifices and no bladder tumors are seen. A 5-Thai open-ended ureteral catheter was inserted into the left ureteral orifice and a retrograde pyelogram was performed. There was a very focal stricture located just above the top of the acetabulum of the hip at that level. I placed the 5-Thai ureteral stricture up to the level of the stricture and it would not pass. Thus, the stricture is narrower than 5-Thai. The Acucise wire was inserted through the 5-Thai ureteral catheter up into the renal pelvis. The 5-Thai ureteral catheter was then removed entirely. We then placed the UroMax balloon dilator over the wire. The ureteral orifice was dilated with 18 atmospheres of pressure. We used a 21-Thai x 4 cm long balloon. I managed to slide the balloon past the ureteral stricture and we actually dilated the stricture under fluoroscopy using the UroMax balloon. Merely dilating the stricture, however, will only allow it to recur. We will also need to make the incision. However, dilating it allowed me to use ureteroscope to have a good look at this area. The balloon dilator was deflated after a few seconds of balloon inflation. The balloon dilator was entirely OPERATIVE REPORT [id number] LE WOODARD JR removed. The rigid ureteroscope was then introduced. The stricture zone is extremely focal, maybe only a couple of millimeters in length. At the site of the stricture, we could actually see blue colored suture material on the medial wall of the ureter. This was most likely where Dr. Oconnell had repaired the ureter. Proximal to this, there was hydronephrosis on retrograde pyelogram and on ureteroscopy. No tumors were seen. More importantly from my perspective, no arterial pulsations were seen anywhere near the ureter in this area. The ureteroscope was kept in place and the Acucise balloon was introduced over the wire. The cutting wire of the Acucise balloon was located directly medially. Under direct vision, the Acucise wire was placed at the level of the stricture. The ureteroscope was then removed to prevent problems with electrical conductivity. We made sure that we had sterile water running. For 5 seconds, 75 damon of pure cutting current were applied and 2.2 mL of contrast were injected into the Acucise balloon. This dilated the stricture entirely. The power was turned off after 5 seconds. We kept the balloon inflated for 10 seconds to tamponade the incision site. We then deflated the balloon and performed a retrograde pyelogram through the Acucise catheter. We did see extravasation at the site of the balloon dilation. There was slight extravasation, but there was extravasation. Due to the risk of arterial injury, I did not wish to try again with the balloon dilation and incision. The Acucise catheter was then completely removed. We then switched over to the cystoscope. The cystoscope was placed beside the wire. We then placed the Acucise ureteral stent over the wire. This has a broader diameter part that goes where the incision was then made. We placed this distally. Once the stent was in correct position as verified by fluoroscopy, the wire was gradually withdrawn. The renal pelvis then was seen to coil. The wire was then withdrawn entirely and the stent was pushed into the bladder using the pusher. The distal end was also seen to coil. The bladder was emptied through the cystoscope. We then inserted a 16-Thai Harrison catheter and put this to bag drainage. A 10 cc of sterile water were placed in the Harrison balloon. This was to prevent back pressure from building up while that ureter is healing. He will have the Harrison catheter for the weekend and he will come to see me on Tuesday to have it removed. TRANSINT:[id number] Voice Confirmation ID: [id number] DOCUMENT ID: [id number] MICHI TAVERA MD at 1604 CC: [id number] DICTATION DATE: 08/26/16905 HUMAN RESOURCES REPRESENTATIVE: 08/26/16 1407 [facility] 08/26/16 [id number] [place] [address]
== END 2016-08-26 11:00 | disposition home or self-care (01) ==
LOC: D.OPS 05:45 → D.PAN 07:30 → D.OPS 11:00
PROVIDERS: Anesthesiology
DX: N13.1 Hydronephrosis with ureteral stricture, not elsewhere classified (principal); M79.5 Residual foreign body in soft tissue

== ENCOUNTER → 2016-10-18 11:01 | Outpatient (CLI) | payer MEDICARE, BC ==
[2016-08-26 06:29] VITALS: BMI 26.7
== END | disposition home or self-care (01) ==
LOC: D.NM 11:01
DX: N13.5 Crossing vessel and stricture of ureter without hydronephrosis (principal)

== ENCOUNTER → 2016-11-08 11:01 | Outpatient (CLI) | payer MEDICARE, BC ==
[2016-08-26 06:29] VITALS: BMI 26.7
[2016-11-08 11:38] LABS: BASOPHILS 0 % (0-2); EOSINOPHILS 1.2 % (0-7); HEMATOCRIT 39.2 % (42.0-54.0); HEMOGLOBIN 13.1 g/dL (13.5-17.5); IMMATURE GRANULOCYTES 0.2 % (0-5); LYMPHOCYTES 21.8 % (15-50); MCH 30.5 pg (26.0-34.0); MCHC 33.4 g/dL (31.0-37.0); MCV 91.4 fL (80.0-100.0); MEAN PLATELET VOLUME 9.2 fL (7.4-10.4); MONOCYTES 10.7 % (2-11); NEUTROPHILS 66.1 % (40-80); PLATELET COUNT 192 10x3/uL (130-400); RBC 4.29 10x6/uL (4.20-6.10); RDW 12.9 % (11.5-14.5); WBC 4.3 10x3/uL (4.8-10.8)
[2016-11-08 11:58] LABS: ALBUMIN 3.7 g/dL (3.4-5.0); ANION GAP 11.1 mmol/L (8-16); BILIRUBIN - TOTAL 0.41 mg/dL (0.2-1.3); CALCIUM 9.1 mg/dL (8.5-10.1); CARBON DIOXIDE 30.5 mmol/L (21.0-32.0); CREATININE - SERUM 1.6 mg/dL (0.6-1.3); POTASSIUM - SERUM 4.6 mmol/L (3.5-5.1); PROTEIN - SERUM 7.7 g/dL (6.4-8.2)
== END | disposition home or self-care (01) ==
LOC: D.LAB 11:01 → D.CT 11:30
PROVIDERS: Surgery
DX: C20 Malignant neoplasm of rectum (principal)

== ENCOUNTER 2017-01-03 05:42 | Day surgery (SDC) | payer MEDICARE, BC ==
[2017-01-03 06:13] LABS: BASOPHILS 0.2 % (0-2); EOSINOPHILS 1.7 % (0-7); HEMATOCRIT 40.6 % (42.0-54.0); HEMOGLOBIN 13.7 g/dL (13.5-17.5); IMMATURE GRANULOCYTES 0.4 % (0-5); LYMPHOCYTES 23.6 % (15-50); MCH 31.3 pg (26.0-34.0); MCHC 33.7 g/dL (31.0-37.0); MCV 92.7 fL (80.0-100.0); MEAN PLATELET VOLUME 9.4 fL (7.4-10.4); NEUTROPHILS 63.1 % (40-80); PLATELET COUNT 186 10x3/uL (130-400); RBC 4.38 10x6/uL (4.20-6.10); RDW 13.3 % (11.5-14.5); WBC 4.7 10x3/uL (4.8-10.8)
[2017-01-03 06:29] LABS: APTT 26.2 SECONDS (22.8-39.4); INR 0.96 (0.85-1.17); PROTIME 12.6 SECONDS (11.6-15.0)
[2017-01-03 07:21] VITALS: BP 140/83; BMI 28.8
[2017-01-03] MEDS ORDERED: DILT-XR240 MG PO (07:26)
[2017-01-03] MEDS ORDERED: LISINOPRIL10 MG PO (07:27)
--- NOTE | 2017-01-03 08:50 | NUR ---
PT REC'D TO ROOM, AWAKE, ALERT.
--- NOTE | 2017-01-03 09:00 | NUR ---
PT PASSED FLATUS. LIQUIDS PROVIDED AND TOLERATED.
--- NOTE | 2017-01-03 09:45 | NUR ---
D/C INSTRUCTIONS EXPLAINED TO PT., VOICED UNDERSTANDING. COPIES OF ALL GIVEN. D/C'D HOME VIA W/C TO PRIVATE CAR.
--- NOTE | 2017-01-03 19:28 | OP ---
PATIENT NAME: LE WOODARD JR MEDICAL RECORD: [id number] :45 LOCATION:[facility] ADMISSION DATE: SURGEON: ROCIO MASSEY MD DATE OF OPERATION: 01/03/2017 SURGEON: Rocio Massey MD PREOPERATIVE DIAGNOSIS: History of rectal cancer. POSTOPERATIVE DIAGNOSIS: History of rectal cancer. PROCEDURE PERFORMED: Colonoscopy. ANESTHESIA: Total intravenous anesthesia. COMPLICATIONS: None. SPECIMENS: None. Case was contaminated. OPERATIVE COURSE: After consent was obtained, the patient was taken to the endoscopy suite. A timeout was taken to confirm the correct patient and procedure, the patient was given total intravenous anesthesia. He was placed in the left lateral decubitus position. Digital rectal exam was performed, no masses. Colonoscope was inserted under direct endoscopic vision and the colon was insufflated. The colon was advanced to the ileocecal valve, the appendiceal orifice was identified, greater than 10 minutes of time was spent on withdrawal of the scope. There were no polyps, no evidence of diverticular disease. No angiodysplasia, no masses identified. The anastomosis was identified. There was some residual wendy in place. The scope was retroflexed. There was no evidence of hemorrhoids. At this time, the scope was readvanced to the sigmoid colon. The colon was decompressed. The scope was withdrawn. At the end of procedure, all needle and instrument counts were correct. No complications occurred. The patient will need repeat colonoscopy in 3-5 years secondary to history of rectal cancer with status post low anterior resection. TRANSINT:[id number] Voice Confirmation ID: [id number] DOCUMENT ID: [id number] ROCIO MASSEY MD at 1928 CC: [id number] DICTATION DATE: 01/03/17 0842 TRACK DRESSER: 01/03/17 1129 [facility] 01/03/17 [facility] [address] [id number]
== END 2017-01-03 09:45 | disposition home or self-care (01) ==
LOC: D.OPS 05:42
PROVIDERS: Anesthesiology
DX: Z85.048 Personal history of other malignant neoplasm of rectum, rectosigmoid junction, and anus (principal); Z01.812 Encounter for preprocedural laboratory examination

== ENCOUNTER → 2018-02-13 14:10 | Outpatient (CLI) | payer MEDICARE, BC ==
[~2018-02-13 14:10] MED LIST changes: +DILT-XR240 MG PO
[2018-02-13 15:51] LABS: CREATININE - SERUM 1.6 mg/dL (0.6-1.3)
== END | disposition home or self-care (01) ==
LOC: D.CT 02-08 10:30
PROVIDERS: Surgery
DX: C20 Malignant neoplasm of rectum (principal)

== ENCOUNTER 2019-04-18 06:13 | Day surgery (SDC) | payer MEDICARE, BC ==
[~2019-04-18] VITALS: Ht 181.6 cm; Wt 105.5 kg
[2019-04-18] MEDS ORDERED: NEXIUM20 MG PO (07:04)
[2019-04-18] MEDS ORDERED: COUMADIN5 MG PO (07:04)
[2019-04-18] MEDS ORDERED: ZANAFLEX2 M1 PO (07:05)
[2019-04-18] MEDS ORDERED: MULTI-DAY VITAM1 TAB PO (07:05)
[2019-04-18] MEDS ORDERED: LIPITOR40 MG PO (07:05)
[2019-04-18 07:06] LABS: BASOPHILS 0.2 % (0-2); EOSINOPHILS 1.4 % (0-7); HEMOGLOBIN 13.7 g/dL (13.5-17.5); IMMATURE GRANULOCYTES 0.6 % (0-5); LYMPHOCYTES 26.6 % (15-50); MCH 29.3 pg (26.0-34.0); MCHC 32.6 g/dL (31.0-37.0); MCV 89.7 fL (80.0-100.0); MEAN PLATELET VOLUME 9.5 fL (7.4-10.4); NEUTROPHILS 59.2 % (40-80); PLATELET COUNT 212 10x3/uL (130-400); RBC 4.68 10x6/uL (4.20-6.10); RDW 16.9 % (11.5-14.5); WBC 5.2 10x3/uL (4.8-10.8)
[2019-04-18] MEDS ORDERED: VITAMIN B-12500 MCG PO (07:06)
[2019-04-18 07:16] VITALS: BP 158/60; Ht 181.6 cm; Wt 105.5 kg
[2019-04-18 08:37] LABS: APTT 26.9 SECONDS (22.8-39.4); INR 1.16 (0.85-1.17); PROTIME 14.7 SECONDS (11.6-15.0)
[2019-04-18] MEDS ORDERED: ALBENZA200 MG PO (10:04)
--- NOTE | 2019-04-18 10:35 | NUR ---
PT DC INSTRUCTIONS REVIEWED AT THIS TIME, PT AND FAMILY VERBALIZE UNDERSTANDING. PT IV REMOVED AT THIS TIME, INTACT, NO REDNESS OR SWELLING NOTED AT SITE. BANDAID APPLIED AND PRESSURE APPLIED AT SITE.
--- NOTE | 2019-04-18 10:46 | NUR ---
PT VOIDED AT THIS TIME.
--- NOTE | 2019-04-18 10:48 | NUR ---
PT LEAVING OPS AT THIS TIME VIA WC, NAD NOTED.
[2019-04-20 15:10] LABS: OVA + PARASITE EXAM Final report (())
== END 2019-04-18 10:57 | disposition home or self-care (01) ==
LOC: D.OPS 06:13
PROVIDERS: Anesthesiology; ATTEND Surgery
DX: Z85.038 Personal history of other malignant neoplasm of large intestine (principal); Z85.048 Personal history of other malignant neoplasm of rectum, rectosigmoid junction, and anus; I10 Essential (primary) hypertension; I48.91 Unspecified atrial fibrillation; Z86.73 Personal history of transient ischemic attack (TIA), and cerebral infarction without residual deficits; D64.9 Anemia, unspecified; C20 Malignant neoplasm of rectum